=== PATIENT | female | born 1945 | race Caucasian/White ===

== ENCOUNTER 2023-03-11 09:34 | Outpatient (CLI) | payer MEDICARE, SELFPAY | END 2023-03-11 09:35 | disposition home or self-care (01) | PROVIDERS: PCP Family Medicine; Visit Provider Internal Medicine Gastroenterology | DX: D50.9 Iron deficiency anemia, unspecified (principal); K92.2 Gastrointestinal hemorrhage, unspecified; K22.70 Barrett's esophagus without dysplasia; K44.9 Diaphragmatic hernia without obstruction or gangrene | CPT/HCPCS: 43239; 88305; J2250; J3010 ==

== ENCOUNTER 2025-08-06 14:59 | Emergency (ER) | payer MEDICARE, SELFPAY ==
--- OUTSIDE RECORDS SUMMARY | 2025-01-23 18:00 | XMS_ITS | Continuity of Care Document ---
Author Organization [facility] Address [address] [address] [place] [address] Phone Care Team Providers Care Law Office Manager Name Role Phone Eugene Morrow DO Unavailab le Allergies, Adverse Reactions, Alerts Substance Reaction Status Criticality ibuprofen Active No Information Medications Medication Instructions Dosage Effective Dates (start - stop) Status Comments Protonix 40 mg tablet,delayed release take 1 tablet by oral route 2 times every day 40 MG - Active Pepcid 20 mg tablet take 1 tablet by ora l route 2 times every day 20 MG - Active donepezil 10 mg tablet take 1 tablet by oral route every day 10 MG - Active Procedures Procedure Date Init Inpt E&M Moderate Ugi Endo; W/bx 1/mx Init Inpt Cons New/est Mod-hi 4 Ugi Endo; Dx W/wo Collec Specm 24 Ugi Endo w/ablation Ugi Endo; W/bx 1/mx Level Iv-surg Path Gross/micro 24 Ugi Endo w/ablation Ugi Endo w/ablation Offic/outpt E&m New Mod-hi New Level 4 Subsqt Hosp-da E&m Stable 15 M 20 Init Hosp-da E&m Mod Severity 0 Ugi Endo; Dx W/wo Collec Specm 20 Advance Directives Directive Yes / No Effective Date File Name No Information Encounters Encounter Description Practice Location Reason(s) For Visit Diagnoses Date Provider Providers Copied on Encounter [facility], [address] [address], [place], [id number], [place] tel:[phone] [facility] No Information 5 Cristhian Segura. [address]001 [facility], [address], [id number], [place]. tel:[phone] Init Inpt E&M Moderate [facility], [address] [address], [place], [address], [place] tel:[phone] [facility] No Information 5 Cristhian Segura. [address] [place] [address], [id number], [place]. tel:[phone] Referring Provider: Bari Lyman, [address], [place], [address]. tel:[phone] Init Inpt Cons New/est Mod-hi [facility], [address] [address], [place], [place], [address], [place] tel:[phone] [facility] No Information 4 Lazaro German. [address], [id number], [place]. tel:[phone] Referring Provider: Bari Lyman, [address], [place], [address]. tel:[phone] [facility], [address] [address], [facility] [place], [address], [place] tel:[phone] [facility] Hankins's esophagus with low grade dysplasia 4 Fatou Green. [address], [id number], [place]. tel:[phone] [facility], [address] [address], [place], [id number], [place] tel:[phone] [facility] No Information 4 Fatou Green. [address] [facility], [facility] [address], [place], [address], [place]. tel:[phone] Referring Provider: Peter Oglesby, 3001 [facility] 500, [place], [address] . tel:[phone] [facility], [address] [address], [place], [address], [place] tel:[phone] [facility] Hankins's esophagus with low grade dysplasia 4 Fatou Green. [address] [facility], [address], [id number], [place]. tel:[phone] [facility], [address] [address], [place], [address], [place] tel:[phone] [facility] GI Symptoms or Concerns (chief complaint) Hankins's esophagus with high grade dysplasiaBarre tt's esophagus with low grade dysplasiaDiaph ragmatic hernia without obstruction or gangrene 4 Fatou Green. [address] [facility], [facility] [address], [place], [address], [place]. tel:[phone] Referring Provider: Referral Self, USE FOR SELF REFERRALS. [facility], [address] [address], [place], [address], [place] tel:[phone] [facility] Hankins's esophagus with high grade dysplasia 4 Faotu Green. [address] [facility], [facility] [address], [place], [address], [place]. tel:[phone] [facility], [address] [address], [place], [address], [place] tel:[phone] [facility] No Information 4 Fatou Green. [address] [facility], [address], [id number], [place]. tel:[phone] Referring Provider: Peter Oglesby, [address] [facility] [address], [place], [address] . tel:[phone] [facility], [address] [address], [place], [address], [place] tel:[phone] [facility] Hankins's esophagus with high grade dysplasia 3 Fatou Green. [address] [facility], [facility] 500, [place], [place], [address], [place]. tel:[phone] [facility], [address] [address], [place], [address], [place] tel:[phone] [facility] No Information 3 Fatou Green. [address] [facility], [facility] 500, [place], [place], [address], [place]. tel:[phone] Referring Provider: Peter Oglesby, [address] [facility] 500, [place], [address] . tel:[phone] Offic/outpt E&m New Mod-hi [facility], [address] [address], [place], [id number], [place] tel:[phone] [facility] GI Symptoms or Concerns (chief complaint) Hankins's esophagus with high grade dysplasia Jun-0 3 Fatou Green. [address] [place] [address], [facility] 500, [place], [place], [address], [place]. tel:[phone] Referring Provider: Kai Egan, [facility] [address] , [place], [address]. tel:[phone] [facility], [address] [address], [place], [id number], [place] tel:[phone] [facility] No Information 0 3 Jose L Doyle. [address] [facility], [facility] 500, [place], [place], [address], [place]. tel:[phone] Subsqt Hosp-da E&m Stable 15 M [facility], [address] [address], [place], [address], [place] tel:[phone] [facility] No Information 0 Viji Cervantes. [address] [facility], [facility] 500, [place], [place], [address], [place]. tel:[phone] Init Hosp-da E&m Mod Severity [facility], [address] [address], [facility] [place], [address], [place] tel:[phone] [facility] No Information 0 Yeison Amador. [address] [facility], [facility] 500, [place], [place], [address], [place]. tel:[phone] Family History Family Member Type Diagnosis Age At Onset No Information Immunizations Vaccine Date Status Comments tetanus toxoid, reduced diphtheria toxoid, and acellular pertussis vaccine, adsorbed administered Note: [facility] bi-direct ional interface ; Source: Other Registry Payers Payer name Insurance type Covered libertarian ID Authorsaqiba jose(s) [employer] Medicare [place] [id number] Social History Type Description Quantity Date Captured Comments Sex Female Smoking Status No Information Chief Complaint And Reason For Visit No Information Reason For Referral Reason For Referral No Information Plan Of Treatment Date Type Action Status Referral Ordered: [place] [address] Appointment date/timeframe: 08/02/2023 ordered History Of Present Illness Encounter Date Complaint History Of Prese nt Illness GI Symptoms or Concerns GI Symptoms or Concerns Jazmin saunders is a very nice 77-year-old female who we were asked to see in consultation by Dr. 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 The patient is actually known to us from previous GI bleeding. She has had at least 2 episodes of bleeding from esophageal ulceration in a long Hankins's segment. These required emergency endoscopy transfusion cautery and hospitalization.Since then, the patient has been followed for Hankins's with high-grade dysplasia, endoscoped in [place] and then again by Dr. Kai Schulz [facility] in [place]. The patient has had high-grade dysplasia on 2 endoscopies and the second endoscopy showed multifocal dysplasia with both high-grade and low-grade.The patient actually feels quite well off any antisecretory medication. She has no heartburn, no regurgitation, no abdominal pain. No nausea or vomiting. Stable appetite and stable weight. She has no dysphagia or odynophagia. No heartburn or regurgitation is n Functional Status Date Functional Assessmen t No Information Instructions Date Instruction Additional Infor jhonny Hiatal Hernia Related to [place] tt's esophagus with high grade dysplasia Assessments Type Assessment Date No Information Patient Care Teams Name Effective Dates (start - stop) Status Members No Information
--- OUTSIDE RECORDS SUMMARY | 2025-01-23 18:00 | XMS_ITS | Continuity of Care Document ---
Author Organization [facility] Address [address] [address] [place] [address] Phone Care Team Providers Care Deck Molder Name Role Phone Eugene Morrow DO Unavailab [...] Diagnoses Date Provider Providers Copied on Encounter [facility], [address] [address], [place], [id number], [place] tel:[phone] [facility] No Information 5 Cristhian Segura. [address] [facility], [address], [id number], [place]. tel:[phone] Init Inpt E&M Moderate [facility], [address] [address], [place], [address], [place] tel:[phone] [facility] No Information 5 Cristhian Segura. [address] [place] [address], [id number], [place]. tel:[phone] Referring Provider: Bari Lyman, [address], [place], [address]. tel:[phone] Init Inpt Cons New/est Mod-hi [facility], [address] [address], [place], [place], [address], [place] tel:[phone] [facility] No Information 4 Lazaro German. [address], [id number], [place]. tel:[phone] Referring Provider: Bari Lyman, [address], [place], [address]. tel:[phone] [facility], [address] [address], [facility] [place], [address], [place] tel:[phone] [facility] Hankins's esophagus with low grade dysplasia 4 Fatou Green. [address], [id number], [place]. tel:[phone] [facility], [address] [address], [place], [address], [place] tel:[phone] [facility] No Information 4 Fatou Green. [address] [facility], [address], [place], [address], [place]. tel:[phone] Referring Provider: Peter Oglesby, 3001 [facility] 500, [place], [address] . tel:[phone] [facility], [address] [address], [place], [address], [place] tel:[phone] [facility] Hankins's esophagus with low grade dysplasia 4 Fatou Green. [address] [facility], [address], [address], [place]. tel:[phone] [facility], [address] [address], [place], [place], [address], [place] tel:[phone] [facility] GI Symptoms or Concerns (chief complaint) Hankins's esophagus with high grade dysplasiaBarre tt's esophagus with low grade dysplasiaDiaph ragmatic hernia without obstruction or gangrene 4 Fatou Green. [address] [facility], [address], [place], [address], [place]. tel:[phone] Referring Provider: Referral Self, USE FOR SELF REFERRALS. [facility], [address] [address], [place], [place], [address], [place] tel:[phone] [facility] Hankins's esophagus with high grade dysplasia 4 Fatou Green. [address] [facility], [address], [place], [address], [place]. tel:[phone] [facility], [address] [address], [place], [address], [place] tel:[phone] [facility] No Information 4 Fatou Green. [address] [facility], [address], [address], [place]. tel:[phone] Referring Provider: Peter Oglesby, [address] [facility] [address], [place], [address] . tel:[phone] [facility], [address] [address], [place], [address], [place] tel:[phone] [facility] Hankins's esophagus with high grade dysplasia 3 Fatou Green. [address] [facility], [address], [place], [place], [address], [place]. tel:[phone] [facility], [address] [address], [place], [id number], [place] tel:[phone] [facility] No Information 3 Fatou Green. [address] [facility], [address], [place], [place], [address], [place]. tel:[phone] Referring Provider: Peter Oglesby, [address] [facility] 500, [place], [address] . tel:[phone] Offic/outpt E&m New Mod-hi [facility], [address] [address], [place], [address], [place] tel:[phone] [facility] GI Symptoms or Concerns (chief complaint) Hankins's esophagus with high grade dysplasia Jun-0 3 Fatou Green. [address] [place] [address], [address], [place], [place], [address], [place]. tel:[phone] Referring Provider: Kai Egan, [facility] [address] , [place], [address]. tel:[phone] [facility], [address] [address], [place], [id number], [place] tel:[phone] [facility] No Information 0 3 Jose L Doyle. [address] [facility], [address], [place], [place], [address], [place]. tel:[phone] Subsqt Hosp-da E&m Stable 15 M [facility], [address] [address], [place], [address], [place] tel:[phone] [facility] No Information 0 Viji Cervantes. [address] [facility], [address], [place], [place], [address], [place]. tel:[phone] Init Hosp-da E&m Mod Severity [facility] [place] [facility], [address] [address], [place] [place], [address], [place] tel:[phone] [facility] No Information 0 Yeison Amador. [address] [facility], [address], [place], [place], [address], [place]. tel:[phone] Family History Family Member Type Diagnosis Age At Onset No Information Immunizations Vaccine Date Status Comments tetanus toxoid, reduced diphtheria toxoid, and acellular pertussis vaccine, adsorbed administered Note: [facility] bi-direct ional interface ; Source: Other Registry Payers Payer name Insurance type Covered constitution party ID Authorsaqiba jose(s) [employer] Medicare [place] [id number] Social History Type Description Quantity Date Captured Comments Sex Female Smoking Status No Information Chief Complaint And Reason For Visit No Information Reason For Referral Reason For Referral No Information Plan Of Treatment Date Type Action Status Referral Ordered: [place] [address] Appointment date/timeframe: 08/02/2023 ordered History Of Present [...] for Hankins's with high-grade dysplasia, endoscoped in [place] and then again by Dr. Kai Schulz [facility] in [place]. The patient has had high-grade dysplasia on [...] Additional Infor jhonny Hiatal Hernia Related to [place] tt's esophagus with high grade dysplasia Assessments Type Assessment Date No Information Patient Care Teams Name Effective Dates (start - stop) Status Members No Information
--- OUTSIDE RECORDS SUMMARY | 2025-01-23 18:00 | XMS_ITS | Continuity of Care Document ---
Author Organization [facility] Address [address] [address] [place] [address] Phone Care Team Providers Care Usps Letter Carrier Name Role Phone Eugene Morrow DO Unavailab [...] Diagnoses Date Provider Providers Copied on Encounter [facility], [address] [address], [place], [id number], [place] tel:[phone] [facility] No Information 5 Cristhian Segura. [address] [facility], [address], [id number], [place]. tel:[phone] Init Inpt E&M Moderate [facility], [address] [address], [place], [address], [place] tel:[phone] [facility] No Information 5 Cristhian Segura. [address] [place] [address], [id number], [place]. tel:[phone] Referring Provider: Bari Lyman, [address], [place], [address]. tel:[phone] Init Inpt Cons New/est Mod-hi [facility], [address] [address], [place], [place], [address], [place] tel:[phone] [facility] No Information 4 Lazaro German. [address], [id number], [place]. tel:[phone] Referring Provider: Bari Lyman, [address], [place], [address]. tel:[phone] [facility], [address] [address], [facility] [place], [address], [place] tel:[phone] [facility] Hankins's esophagus with low grade dysplasia 4 Fatou Green. [address], [address], [place]. tel:[phone] [facility], [address] [address], [place], [address], [place] tel:[phone] [facility] No Information 4 Fatou Green. [address] [facility], [facility] [place], [place], [address], [place]. tel:[phone] Referring Provider: Peter Oglesby, [address]001 [facility] 500, [place], [address] . tel:[phone] [facility], [address] [address], [place], [address], [place] tel:[phone] [facility] Hankins's esophagus with low grade dysplasia 4 Fatou Green. [address] [facility], [address], [address], [place]. tel:[phone] [facility], [address] [address], [place], [place], [address], [place] tel:[phone] [facility] GI Symptoms or Concerns (chief complaint) Hankins's esophagus with high grade dysplasiaBarre tt's esophagus with low grade dysplasiaDiaph ragmatic hernia without obstruction or gangrene 4 Fatou Green. [address] [facility], [facility] [address], [place], [address], [place]. tel:[phone] Referring Provider: Referral Self, USE FOR SELF REFERRALS. [facility], [address] [address], [place], [place], [address], [place] tel:[phone] [facility] Hankins's esophagus with high grade dysplasia 4 Fatou Green. [address] [facility], [facility] [address], [place], [address], [place]. tel:[phone] [facility], [address] [address], [place], [place], [address], [place] tel:[phone] [facility] No Information 4 Fatou Green. [address] [facility], [address], [address], [place]. tel:[phone] Referring Provider: Peter Oglesby, [address] [facility] [address], [place], [address] . tel:[phone] [facility], [address] [address], [place], [address], [place] tel:[phone] [facility] Hankins's esophagus with high grade dysplasia 3 Fatou Green. [address] [facility], [facility] 500, [place], [place], [address], [place]. tel:[phone] [facility], [address] [address], [place], [address], [place] tel:[phone] [facility] No Information 3 Fatou Green. [address] [facility], [facility] 500, [place], [place], [address], [place]. tel:[phone] Referring Provider: Peter Oglesby, [address] [facility] 500, [place], [address] . tel:[phone] Offic/outpt E&m New Mod-hi [facility], [address] [address], [place], [address], [place] tel:[phone] [facility] GI Symptoms or Concerns (chief complaint) Hankins's esophagus with high grade dysplasia Jun-0 3 Fatou Green. [address] [place] [address], [facility] 500, [place], [place], [address], [place]. tel:[phone] Referring Provider: Kai Egan, [facility] [address] , [place], [address]. tel:[phone] [facility], [address] [address], [place], [address], [place] tel:[phone] [facility] No Information 0 3 Jose L Doyle. [address] [facility], [facility] 500, [place], [place], [address], [place]. tel:[phone] Subsqt Hosp-da E&m Stable [address] [facility], [address] [address], [place], [place], [address], [place] tel:[phone] [facility] No Information 0 Viji Cervantes. [address] [facility], [facility] 500, [place], [place], [address], [place]. tel:[phone] Init Hosp-da E&m Mod Severity [facility], [address] [address], [facility] [place], [address], [place] tel:[phone] [facility] No Information 0 Yeison Amador. [address] [facility], [facility] 500, [place], [place], [address], [place]. tel:[phone] Family History Family Member Type Diagnosis Age At Onset No Information Immunizations Vaccine Date Status Comments tetanus toxoid, reduced diphtheria toxoid, and acellular pertussis vaccine, adsorbed administered Note: [facility] bi-direct ional interface ; Source: Other Registry Payers Payer name Insurance type Covered green party ID Authorsaqiba jose(s) [employer] Medicare [place] [id number] Social History Type Description Quantity Date Captured Comments Sex Female Smoking Status No Information Chief Complaint And Reason For Visit No Information Reason For Referral Reason For Referral No Information Plan Of Treatment Date Type Action Status Referral Ordered: [place] [address] Appointment date/timeframe: 08/02/2023 ordered History Of Present [...] for Hankins's with high-grade dysplasia, endoscoped in [place] and then again by Dr. Kai Schulz [facility] in [place]. The patient has had high-grade dysplasia on [...] Additional Infor jhonny Hiatal Hernia Related to [place] tt's esophagus with high grade dysplasia Assessments Type Assessment Date No Information Patient Care Teams Name Effective Dates (start - stop) Status Members No Information
--- OUTSIDE RECORDS SUMMARY | 2025-01-23 18:00 | XMS_ITS | Continuity of Care Document ---
Author Organization [facility] Address [address] [address] [place] [address] Phone Care Team Providers Care Odd Jobs Day Worker Name Role Phone Eugene Morrow DO Unavailab [...] Diagnoses Date Provider Providers Copied on Encounter [facility], [address] [address], [place], [id number], [place] tel:[phone] [facility] No Information 5 Cristhian Segura. [address] [facility], [address], [id number], [place]. tel:[phone] Init Inpt E&M Moderate [facility], [address] [address], [place], [id number], [place] tel:[phone] [facility] No Information 5 Cristhian Segura. [address] [place] [address], [id number], [place]. tel:[phone] Referring Provider: Bari Lyman, [address], [place], [address]. tel:[phone] Init Inpt Cons New/est Mod-hi [facility], [address] [address], [place], [place], [id number], [place] tel:[phone] [facility] No Information 4 Lazaro German. [address], [id number], [place]. tel:[phone] Referring Provider: Bari Lyman, [address], [place], [address]. tel:[phone] [facility], [address] [address], [facility] [place], [id number], [place] tel:[phone] [facility] Hankins's esophagus with low grade dysplasia 4 Fatou Green. [address], [id number], [place]. tel:[phone] [facility], [address] [address], [place], [id number], [place] tel:[phone] [facility] No Information 4 Fatou Green. [address] [facility], [facility] [address], [place], [id number], [place]. tel:[phone] Referring Provider: Peter Oglesby, [address] [facility] [address], [place], [address] . tel:[phone] [facility], [address] [address], [place], [id number], [place] tel:[phone] [facility] Hankins's esophagus with low grade dysplasia 4 Fatou Green. [address] [facility], [address], [id number], [place]. tel:[phone] [facility], [address] [address], [place], [id number], [place] tel:[phone] [facility], [facility] GI Symptoms or Concerns (chief complaint) Hankins's esophagus with high grade dysplasiaBarre tt's esophagus with low grade dysplasiaDiaph ragmatic hernia without obstruction or gangrene 4 Fatou Green. [address] [facility], [facility] [address], [place], [id number], [place]. tel:[phone] Referring Provider: Referral Self, USE FOR SELF REFERRALS. [facility], [address] [address], [place], [place], [id number], [place] tel:[phone] [facility] Hankins's esophagus with high grade dysplasia 4 Fatou Green. [address] [facility], [facility] [address], [place], [id number], [place]. tel:[phone] [facility], [address] [address], [place], [place], [id number], [place] tel:[phone] [facility] No Information 4 Fatou Green. [address] [facility], [address], [id number], [place]. tel:[phone] Referring Provider: Peter Oglesby, [address] [facility] [address], [place], [address] . tel:[phone] [facility], [address] [address], [place], [id number], [place] tel:[phone] [facility] Hankins's esophagus with high grade dysplasia 3 Fatou Green. [address] [facility], [facility] [address], [place], [place], [id number], [place]. tel:[phone] [facility], [address] [address], [place], [id number], [place] tel:[phone] [facility] No Information 3 Fatou Green. [address] [facility], [facility] [address], [place], [place], [id number], [place]. tel:[phone] Referring Provider: Peter Oglesby, [address] [facility] [address], [place], [address] . tel:[phone] Offic/outpt E&m New Mod-hi [facility], [address] [address], [place], [id number], [place] tel:[phone] [facility] GI Symptoms or Concerns (chief complaint) Hankins's esophagus with high grade dysplasia Jun-0 3 Fatou Green. [address] [place] [address], [facility] [address], [place], [place], [id number], [place]. tel:[phone] Referring Provider: Kai Egan, [facility] [address] , [place], [address]. tel:[phone] [facility], [address] [address], [place], [id number], [place] tel:[phone] [facility] No Information 0 3 Jose L Doyle. [address] [facility], [facility] [address], [place], [place], [id number], [place]. tel:[phone] [facility] Hosp-da E&m Stable 15 M [facility], [address] [address], [place], [id number], [place] tel:[phone] [facility] No Information 0 Viji Cervantes. [address] [facility], [facility] [address], [place], [place], [id number], [place]. tel:[phone] Init Hosp-da E&m Mod Severity [facility], [address] [address], [facility] [place], [id number], [place] tel:[phone] [facility] No Information 0 Yeison Amador. [address] [facility], [facility] [address], [place], [place], [id number], [place]. tel:[phone] Family History Family Member Type Diagnosis Age At Onset No Information Immunizations Vaccine Date Status Comments tetanus toxoid, reduced diphtheria toxoid, and acellular pertussis vaccine, adsorbed administered Note: [facility] bi-direct ional interface ; Source: Other Registry Payers Payer name Insurance type Covered green party ID Authorsaqiba jose(s) [employer] [place] [id number] Social History Type Description Quantity Date Captured Comments Sex Female Smoking Status No Information Chief Complaint And Reason For Visit No Information Reason For Referral Reason For Referral No Information Plan Of Treatment Date Type Action Status Referral Ordered: [place] [id number] Appointment date/timeframe: 08/02/2023 ordered History Of Present [...] for Hankins's with high-grade dysplasia, endoscoped in [place] and then [facility] [place]. The patient has had high-grade dysplasia on [...] Additional Infor jhonny Hiatal Hernia Related to [place] tt's esophagus with high grade dysplasia Assessments Type Assessment Date No Information Patient Care Teams Name Effective Dates (start - stop) Status Members No Information
--- OUTSIDE RECORDS SUMMARY | 2025-07-04 16:14 | XMS_ITS | Encounter Summary ---
Author Organization [facility] Address [address] [place] [address] Care Team Providers Care Sap Integration Architect Name Role Phone None Reported, Pcp Primary Care Provider Unavail able Reason for Visit * Reason Comments Food Bolus Encounter Details Date Type Department Care Team (Late st Contact Info) Description 07/04/2025 5:14 PM CDT - 07/04/2025 8:14 PM CDT Emergency [facility] [address] [place] [phone] Farheen Yañez APRN, C.N.P., D.N.P. Food In Esophagus Causing Other Injury Initial (Primary Dx) Discharge Disposition: Home or Self Care Social History Tobacco Use Types Packs/Day Years Used Date Smoking Tobacco: Former Cigarettes Smokeless Tobacco: Never Alcohol Use Standard Drinks/Week Comments Yes 3 (1 standard drink = 0.6 oz pur e alcohol) daily drinker Humiliation, Afraid, Rape, and Kick questionnair e Answer Date Recorded Within the last year, have y ou been afraid of your partner or ex-partner? No 07/05/2025 Within the last year, have y ou been humiliated or emotionally abused in other ways by your partner or ex-partner? No Within the last year, have y ou been kicked, hit, slapped, or otherwise physically hurt by your partner or ex-partner? No 07/05/2025 Within the last year, have y ou been raped or forced to have any kind of sexual activity by your partner or ex-partner? No 07/05/2025 Hunger Vital Sign Answer Date Recorded Within the past 12 months, y ou worried that your food would run out before you got the money to buy more. Never true 07/05/20 25 Within the past 12 months, t he food you bought just didn't last and you didn't have money to get more. Never true 07/05/2025 PRAPARE - Transportation Answer Date Re corded In the past 12 months, has l ack of transportation kept you from medical appointments or from getting medications? No 06/23 In the past 12 months, has l ack of transportation kept you from meetings, work, or from getting things needed for daily living? No 07/05/2025 [facility] Utilities Answer Date Recorded In the past 12 months has e electric, gas, oil, or water company threatened to shut off services in your home? No 07/05/2025 Housing Stability Answer Date Recorded What is your living situation today? I have a [facility] place to live 07/05/2025 Education Answer Date Recorded What is the highest level of school you have completed or the highest degree you have received? 12th grade 09/17/2019 Comments No Sex and Gender Information Value Date Recorded Sex Assigned at Not on file Legal Sex Female 11:56 AM CLIENT SERVICES VICE PRESIDENT Gender Identity Not on file Sexual Orientation Not on file documented as of this encounter Last Filed Vital Signs Vital Sign Reading Time Taken Comments Blood Pressure 148/60 07/04/2025 8:00 PM CDT Pulse 86 07/04/2025 8:00 PM CDT Temperature 36.4 C (97.5 F) 07/04/2025 5:05 PM CDT Respiratory Rate 18 07/04/2025 5:05 PM CDT Oxygen Saturation 93% 07/04/2025 8:00 PM CDT Inhaled Oxygen Concentration - - Weight 60.9 kg (134 lb 4.2 oz) 07/04/2025 5:02 P M CDT Height - - Body Mass Index 22.34 11/15/2022 8:30 PM CLIENT SERVICES VICE PRESIDENT documented in this encounter Discharge Instructions * Discharge Instructions* Farheen Yañez APRN, C.N.P., D.N.P. - 07/04/2025 7:42 PM CDT Report to the [facility] Emergency Department. You will be evaluated by the GI team there. Return to the emergency department with any worsening symptoms, or any other concerns. * Attachments The following attachments cannot be sent through Care Everywhere. * Swallowed Foreign Body Adult Ojwe-eg-Ufod (Albanian) documented in this encounter Medications at Time of Discharge donepeziL (ARICEPT) 10 mg tablet Take 10 mg by mouth at bedtime. 07/31/2021 esomeprazole (NexIUM) [address] capsule Take 1 capsule (40 mg total) by mouth 2 (two) times a day before morning and evening meals. Open capsule carefully. Sprinkle granules onto 1 tablespoon of applesauce (not hot). Swallow the mixture immediately without chewing or crushing the granules. Follow with a small glass of water. Do not store the mixture - use right away., 180 capsule 07/07/2025 5:05 PM CDT 07/07/2025 famotidine (Pepcid) 20 mg tablet Take 20 mg by mouth 2 (two) times a day. 03/06/2025 ferrous sulfate 324 mg (65 mg iron) DR tablet Take 324 mg by mouth daily. 09/25/2021 metoprolol succinate (Toprol XL) 50 mg 24 hr tablet Take 1 tablet (50 mg total) by mouth daily. Do not crush or chew. 30 tablet 07/07/2025 5:05 PM CDT 07/07/2025 vitamins A,C,P-xoyl-ycgtz r (PRESERVISION AREDS) 7,160 Units-113 mg-100 Units per tablet Take 1 tablet by mouth daily. pantoprazole (Protonix) 40 mg EC tablet Take 40 mg by mouth daily before morning meal. 10/22/2024 pantoprazole (Protonix) 40 mg EC tablet Take 1 tablet (40 mg total) by mouth 2 (two) times a day before morning and evening meals. 07/07/2025 esomeprazole (NexIUM) [address] capsule Take 1 capsule (20 mg total) by mouth 2 (two) times a day before morning and evening meals. Open capsule carefully. Sprinkle granules onto 1 tablespoon of applesauce (not hot). Swallow the mixture immediately without chewing or crushing the granules. Follow with a small glass of water. Do not store the mixture - use right away., 180 capsule 07/07/2025 famotidine (PEPCID) 20 mg tablet Take 1 tablet (20 mg total) by mouth 2 (two) times a day. 60 tablet 11/19/2022 methyl salicylate-menth ol 15-10 % cream Apply 1 application topically 3 (three) times a day as needed for muscle/joint pain. Apply to painful joints 0 09/25/2021 omeprazole (PriLOSEC) [address] capsule Take 1 capsule (40 mg total) by mouth 2 (two) times a day before morning and evening meals. Open capsule carefully. Sprinkle granules onto 1 tablespoon of applesauce (not hot). Swallow the mixture immediately without chewing or crushing the granules. Follow with a small glass of water. Do not store the mixture - use right away. 180 capsule 07/07/2025 documented as of this encounter ED Notes * Farheen Yañez APRN, C.N.P., D.N.P. - 07/04/2025 5:18 PM CDT SUBJECTIVE CHIEF COMPLAINT/REASON FOR VISIT Food Bolus HISTORY OF PRESENT ILLNESS This is an 79-year-old female, who presents to the emergency department accompanied by her daughterfor evaluation of a food bolus. At 1600, while patient was eating chicken, she had an episode of foreign body sensation and was not able to continue swallowing. This has happened once in the past, and she was able to treat it with home remedy of olive oil. REVIEW OF SYSTEMS All other systems reviewed and are negative. OBJECTIVE Initial Vitals [07/04/251704] Temperature 36.4 ??C Pulse Rate 80 Heart Rate Resp Rate 18 Blood Pressure 141/68 SpO2 97 % Pain Score 2 PHYSICAL EXAMINATION Constitutional: Nursing note and vitals reviewed. Pulmonary/Chest: Effort normal. Musculoskeletal: General: Normal range of motion. Cervical back: Normal range of motion. Neurological: Alert. ASSESSMENT/PLAN Patient is ambulatory, and awake, and alert. She is afebrile and nontoxic- appearing. She is in no acute respiratory distress. She is seemingly uncomfortable, she is at unable to control her secretions. Patient was administered some oral coke, and was ambulating in facility several times. Subsequently, she was administered 2 doses of IV glucagon. All these attempts were unsuccessful. [facility] was contacted, and requested transferred ED to ED for GI evaluation. Dr. Herrera is the accepting physician. Patient and daughter were informed of the plan. And they are in agreement with the plan of care. There were advised to report to the [place] [facility]. Final Diagnoses: as of 07/04/251954 Food In Esophagus Causing Other Injury Initial Farheen Yañez APRN, C.N.P., D.N.P. 07/04/251954 * David Flaherty R.N. - 07/04/2025 5:06 PM CDT Patient presents to the ED with a food bolus of chicken since approximately 1600 today. Patient is unable to swallow any liquids and has excessive salivation. No respiratory distress noted. David Flaherty R.N. 07/04/251706 documented in this encounter Plan of Treatment Not on file documented as of this encounter Visit Diagnoses Diagnosis Food In Esophagus Causing Other Injury Initial- Primary documented in this encounter Administered Medications Inactive Administered Medications - up to 3 most recent administrations Medication Order MAR Action Action Date Dose Rate Site glucagon injection 1 mg (GlucaGen) 1 mg, intravenous, Once, On 07/04/25 at 1719, For 1 dose Given 07/04/2025 5:25 PM CDT 1 mg glucagon injection 1 mg (GlucaGen) 1 mg, intravenous, Once, On 07/04/25 at 1744, For 1 dose Given 07/04/2025 6:29 PM CDT 1 mg sodium chloride 0.9 % injection 2-10 mL 2-10 mL, intravenous, As needed, line care, Starting on 07/04/25 at 1718 documented in this encounter Active and Recently Administered Medications Times are shown in CDT. Scheduled Medication Order 07/02/2025 07/03/2025 07/04/2025 glucagon injection 1 mg (GlucaGen) (COMPLETED) 1 mg, intravenous, Once, On 07/04/25 at 1719, For 1 dose 1725 (Given - Provid er: David Flaherty R.N.) glucagon injection 1 mg (GlucaGen) (COMPLETED) 1 mg, intravenous, Once, On 07/04/25 at 1744, For 1 dose 1829 (Given - Provid er: David Flaherty R.N.) PRN Medication Order 07/02/2025 07/03/2025 07/04/2025 sodium chloride 0.9 % injection 2-10 mL(Linked Group 1) 2-10 mL, intravenous, As needed, line care, Starting on 07/04/25 at 1718 Linked Groups Order Group 1: Place peripheral IV: No upper extremity site restrictions (COMPLETED) Upper extremity site restriction: No upper extremity site restrictions, Quantity of PIVs requested: One, STAT, Once, On 07/04/25 at 1719, For 1 occurrence And sodium chloride 0.9 % injection 2-10 mLJump to med 2-10 mL, intravenous, As needed, line care, Starting on 07/04/25 at 1718 documented in this encounter Care Teams Sap Integration Architect Relationship Specialty Start Date End Date None Reported, Pcp PCP - General Family Medicine 03/12/25 documented as of this encounter
--- OUTSIDE RECORDS SUMMARY | 2025-07-04 20:22 | XMS_ITS | Encounter Summary ---
Author Organization [facility] Address [address] [place] [address] Care Team Providers Care Tree Surgeon Helper Name Role Phone None Reported, Pcp Primary Care Provider Unavail able Reason for Visit * Reason Comments Food Bolus * Auth/Cert (Routine) Specialty Diagnoses / Procedures Referred By Jim levine Referred To Contact Diagnoses Respiratory Failure (HCC) Respiratory Failure With Hypoxia (HCC) Acute Respiratory Failure (HCC) Food In Esophagus Causing Other Injury Initial Food bolus Procedures ED Referral ID Status Reason Start Date Expiration Date Visits Re quested Visits Authorized [id number] 1 1 Encounter Details Date Type Department Care Team (Late st Contact Info) Description 07/04/2025 9:22 PM CDT - 07/07/2025 5:15 PM CDT Hospital Encounter [facility], [facility], [facility], Sixth Floor [address] [place] [address] Vance Lopez M.D., M.H.A. [address] [place] [phone] Jefferson Carrion M.D. [address] [phone] Wali Diego M.B.BOsmanS. [address] [phone] Osbaldo Canchola M.D. [address] [place] [phone] Respiratory Failure (HCC) (Primary Dx); Respiratory Failure With Hypoxia (HCC); Food In Esophagus Causing Other Injury Initial; Dysphagia [R13.10]; Supraventricular Tachycardia, Unspecified (HCC); Stricture Esophagus; Hankins's Esophagus; Decline Functional Status Discharge Disposition: Home or Self Care Social [...] things needed for daily living? No 07/05/2025 [facility] Utilities Answer Date Recorded In the past 12 months has th e electric, gas, oil, or water company threatened to shut off services in your home? No 07/05/2025 Housing Stability Answer Date Recorded What is your living situation today? I have a [facility] place to live 07/06/2025 Education Answer Date Recorded What is the highest level of school you have completed or the highest degree you have received? 12th grade 09/17/2019 Comments No Sex and Gender Information Value Date Recorded Sex Assigned at Not on file Legal Sex Female 11:56 AM WEB ANALYTICS DEVELOPER Gender Identity Not on file Sexual Orientation Not on file documented as of this encounter Last Filed Vital Signs Vital Sign Reading Time Taken Comments Blood Pressure 139/71 07/07/2025 4:15 PM CDT Pulse 66 07/07/2025 4:15 PM CDT Temperature 36.7 C (98.1 F) 07/07/2025 4:15 PM CDT Respiratory Rate 21 07/07/2025 4:15 PM CDT Oxygen Saturation 94% 07/07/2025 4:15 PM CDT Inhaled Oxygen Concentration - - Weight 58.9 kg (129 lb 13.6 oz) 07/06/2025 2:42 AM CDT Height 156 cm (5' 1.42) 07/05/2025 12: 00 AM CDT Body Mass Index 24.2 07/05/2025 12:00 AM CDT documented in this encounter Discharge Summaries * Mounika Briones M.D., M.S. - 07/07/2025 12:19 PM CDT DISCHARGE SUMMARY BRIEF OVERVIEW Hospital: [facility] Discharge Provider: Wali Diego M.B.B.SOsman Primary Team: [facility] Medicine 3 Primary Care Providers: None Reported, Pcp (General) No address on file Primary Care Provider Phone Number: None Primary Care Provider Fax Number: None Admission Date: 07/04/2025 Discharge Date: 07/07/2025 PRINCIPAL DIAGNOSIS Respiratory Failure (HCC) SECONDARY DIAGNOSES Principal Problem: Respiratory Failure (HCC) Active Problems: Acute Respiratory Failure (HCC) Delirium (not otherwise specified) Food In Esophagus Causing Other Injury Initial Stricture Esophagus Dementia In Other Diseases Classified Elsewhere, Severe, Without Behavioral Disturbance, Psychotic Disturbance, Mood Disturbance, And Anxiety (HCC) Resolved Problems: * No resolved hospital problems. * DISCHARGE DISPOSITION Home or Self Care [1] ACTIVE ISSUES REQUIRING FOLLOW UP Discharge Notes from your Provider Team You were discharged from the Critical Care Medicine (ICU)-3 Service. Please identify this service name if you call with questions after hospitalization. You were hospitalized for food impaction causing difficulties with breathing and low oxygen levels. Please seek emergency care if you experience chest pain, shortness of breath, abdominal pain, nausea/vomiting, bleeding. Please seek emergency care if you experience new or worsening severe headache, loss of consciousness, facial drooping, weakness, trouble walking, vision changes, speech troubles. Medication changes: - Please continue medications as indicated in medication reconciliation - Please START metoprolol succinate 50 mg once daily - Consider Nexium open capsule instead of pantoprazole to reduce burden of swallowing whole pills. Regardless of PPI choice, should take 40 mg twice daily. Follow-up: - Please attend follow up appointments as listed in after visit summary - Follow-up with your PCP within 1-2 weeks. Follow-up on 07/22/2025. 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 - Follow with with GI Esophageal Clinic for consideration of esophageal dilations. - We will arrange for Cardiology and Esophageal clinic follow up at [facility]. Scheduling will be reaching out to you to schedule If [facility] preferred for either or both consults, please work with PCP to schedule these appointments -Please watch out for symptomatic AVNRT including: Palpitations, heart racing, fluttering Lightheadedness/dizziness Chest discomfort/tightness Shortness of breath Sweating/anxiety Passing out or almost passing out If above symptoms persist, please go to the ED. If the symptoms are transient, please let your PCP and System Dispatcher know. For PCP: - If requested, please refer patient to [facility] Cardiology for AVNRT management/follow up andto GI Clinic (esophageal clinic) for consideration of dilations. - Received IV dextran inpatient for iron deficiency anemia, consider hemoglobin/iron study recheck and optimizing iron supplements. Eating precautions: - Supervision when eating - Strict Reflux Precautions: Sit upright and remain upright 60 minutes after oral intake - Alternate bites/sips - Take small bites/sips - Intermittently clear throat If you have any questions related to issues addressed during your hospitalization prior to your follow-up appointments, contact the [facility] Cash Processor at [phone] and ask to speak with the Critical Care Medicine (ICU)- 3 Service OUTPATIENT FOLLOW UP For appointment details refer to your Patient Appointment Guide. TEST RESULTS PENDING AT DISCHARGE Pending Labs None DETAILS OF HOSPITAL STAY REASON FOR ADMISSION Respiratory Failure (HCC) Respiratory Failure With Hypoxia (HCC) Acute Respiratory Failure (HCC) Food In Esophagus Causing Other Injury Initial HOSPITAL COURSE Jazmin Lyn is a 79 y.o. female admitted to the [facility] Medicine 3 for food impaction. Past medical history notable for History of GI bleed, Anthony's ulcers (2019), LA grade D esophagitis (01/2025) GERD Hankins's esophagus with high grade dysplasia Hiatal hernia Alzheimer's dementia Anemia Alcohol use disorder (last drink 2019) Hx of left hip fracture s/p left hip hemiarthroplasty (2019) Hx of subdural hematoma (2018) Background: Mrs. Lyn was brought into the [place] ED by her daughter due to concerns for food bolus. Perreport she had difficulty swallowing her dinner (chicken) around 1600 the evening of presentation. She has history of one prior episode of food impaction that resolved at home without any medical intervention. At the time of initial presentation she was not ill appearing, managing oral secretions, and satting well on room air. The food bolus persisted IV glucagon x2, so she and her family were advised to present to [facility] ED for further evaluation and management. [facility] ED course: On arrival to [facility] ED her oxygen saturations were in the mid 80s which improved with application of facemask oxygen. There was concern for aspiration while in route to the ED due to a significant change in her respiratory status. RT suctioned at bedside with significant improvement in saturations, copious amount of secretions were noted. Her oxygen needs did continue to increase from nasal cannulainitially to facemask followed by non-rebreather at 15 L and high-flow nasal cannula at 80% FiO2, 60 L. Glucagon was again trialed without success. GI was consulted who recommended endoscopy for definitive management. She was transferred to the ICU due to concern for high risk for respiratory decompensation. Medical ICU Course (07/05-07/07): Mrs. Lyn was saturating well on HFNC on arrival to the ICU. She had diffuse rhonchi on pulmonary auscultation with associated cough. She was intubated prior to bedside EGD for airway protectionwith her high risk for aspiration. Bronchoscopy showed diffuse thin white secretions but no gross food particles. EGD was performed at bedside with removal of impacted chicken. Stenosis was noted at the GE junction and more proximally in the esophagus, the latter of which was biopsied. 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 No definitive Zenker's diverticulum was identified. GI verbally recommended outpatient GI follow up (locally or at [facility]) for consideration of dilation procedures. Following EGD, sedation was weaned and shortly after she was alert and able to follow commands. Shewas extubated to nasal cannula without issue. Lung sounds were significantly improved following bronchoscopy and extubation. 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 Initiated on diet--minced and moist solids, thin liquids, 1:1 nursing supervision with feeds--per DENTAL SCHEDULER recommendations. On 07/05, she was stable to transfer to the floor but then unfortunately went into asymptomatic SVTwith rates in low 200s twice overnight. Both times resolved with adenosine. She was additionally supported with IV magnesium, additional fluid boluses, and started on metoprolol tartrate 12.5 mg BID.Bed request changed to PCU status with tele monitoring. On 07/06, she had another episode of rates in 170s that seemed to quickly resolve with carotid massage. Again, patient was comfortable and no symptoms reported at that time. Metoprolol tartrate was increased to 25 mg BID. 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 Since she was monitored on telemetry and was asymptomatic--based on her age and overall other comorbid conditions, they recommended continuing hermedical therapy with beta blockade at this time and defer ablation for now. She should follow up with PCP/outpatient Cardiology for uptitration of medical therapy. Ablation or other medical therapy can be considered if she becomes symptomatic. No Holter monitor needed at this point in time. Patient's daughter Cathie informed of and agreeable with plan. 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 Bedside nursing impression was that she was mobilizing well and at baseline. PT also evaluated patient and agreed with nursing assessment. Given resolution of her admission problems and reassuring cardiology assessment, she was deemed safe for discharge home from ICU. No further inpatient cares needed. CONSULTS ORDERED DURING THIS ADMISSION IP CONSULT TO CARE MANAGEMENT IP CONSULT TO DIETITIAN IP CONSULT TO CARDIOLOGY Procedures Performed : endoscopy Pertinent Diagnostic Results : Pathology: Squamous esophageal mucosa, no dysplasia CONDITION AT DISCHARGE good Discharge instructions were provided to the patient and caregiver(s). Total time spent in discharge services today: 40 minutes. * Mounika Briones M.D., M.S. - 07/05/2025 7:57 AM CDT CCM3 TRANSFER NOTE CONDITION AT TRANSFER Improved. PHYSICAL EXAM Please see physical exam in the progress note from today. SUMMARY OF CARE Jazmin Lyn is a 79 y.o. female admitted to the [facility] Medicine 3 for food impaction. Past medical history notable for History of GI bleed, Anthony's ulcers (2019), LA grade D esophagitis (01/2025) GERD Hankins's esophagus with high grade dysplasia Hiatal hernia Alzheimer's dementia Anemia Alcohol use disorder (last drink 2019) Hx of left hip fracture s/p left hip hemiarthroplasty (2019) Hx of subdural hematoma (2018) Background: Mrs. Lyn was brought into the [place] ED by her daughter due to concerns for food bolus. Perreport she had difficulty swallowing her dinner (chicken) around 1600 the evening of presentation. She has history of one prior episode of food impaction that resolved at home without any medical intervention. At the time of initial presentation she was not ill appearing, managing oral secretions, and satting well on room air. The food bolus persisted IV glucagon x2, so she and her family were advised to present to [facility] ED for further evaluation and management. [facility] ED course: On arrival to [facility] ED her oxygen saturations were in the mid 80s which improved with application of facemask oxygen. There was concern for aspiration while in route to the ED due to a significant change in her respiratory status. RT suctioned at bedside with significant improvement in saturations, copious amount of secretions were noted. Her oxygen needs did continue to increase from nasal cannulainitially to facemask followed by non-rebreather at 15 L and high-flow nasal cannula at 80% FiO2, 60 L. Glucagon was again trialed without success. GI was consulted who recommended endoscopy for definitive management. She was transferred to the ICU due to concern for high risk for respiratory decompensation. Medical ICU Course (07/05): Mrs. Lyn was saturating well on HFNC on arrival to the ICU. She had diffuse rhonchi on pulmonary auscultation with associated cough. She was intubated prior to bedside EGD for airway protectionwith her high risk for aspiration. Bronchoscopy showed diffuse thin white secretions but no gross food particles. EGD was performed at bedside with removal of impacted chicken. Stenosis was noted at the GE junction and more proximally in the esophagus, the latter of which was biopsied. No definitive Zenker's diverticulum was identified. Following EGD sedation was weaned and shortly after she was alert and able to follow commands. She was extubated to nasal cannula without issue. Lung sounds were significantly improved following bronchoscopy and extubation. By the morning of 07/05, she was saturating well on 4 L NC and ready for floor transfer. RECOMMENDATIONS F/up DENTAL SCHEDULER evaluations w/ FL esophagram F/up biopsy pathology results No abx currently--monitor symptoms to see if she progresses from aspiration pneumonitis to pneumonia Lives w/ daughter who plans to take her back--- ensure this is a safe plan w/ PT/OT and CM as needed Iron deficiency without anemia--- consider IV dextran if concerns for symptomatic iron deficiency, otherwise consider transition to ferrous gluconate and supplementing iron outpatient Please see today's progress note for comprehensive problem list and associated plan. Mounika Briones M.D., M.S. documented in this encounter Discharge Instructions * Discharge Instructions* Mounika Briones M.D., M.S. - 07/07/2025 8:51 AM CDT Discharge Notes from your Provider Team You were discharged from the Critical Care Medicine (ICU)-3 Service. Please identify this service name if you call with questions after hospitalization. You were hospitalized for food impaction causing difficulties with breathing and low oxygen levels. Please seek emergency care if you experience chest pain, shortness of breath, abdominal pain, nausea/vomiting, bleeding. Please seek emergency care if you experience new or worsening severe headache, loss of consciousness, facial drooping, weakness, trouble walking, vision changes, speech troubles. Medication changes: - Please continue medications as indicated in medication reconciliation - Please START metoprolol succinate 50 mg once daily - Consider Nexium open capsule instead of pantoprazole to reduce burden of swallowing whole pills. Regardless of PPI choice, should take 40 mg twice daily. Follow-up: - Please attend follow up appointments as listed in after visit summary - Follow-up with your PCP within 1-2 weeks. Follow-up on 07/22/2025. 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 - Follow with with GI Esophageal Clinic for consideration of esophageal dilations. - We will arrange for Cardiology and Esophageal clinic follow up at [facility]. Scheduling will be reaching out to you to schedule If [facility] preferred for either or both consults, please work with PCP to schedule these appointments -Please watch out for symptomatic AVNRT including: Palpitations, heart racing, fluttering Lightheadedness/dizziness Chest discomfort/tightness Shortness of breath Sweating/anxiety Passing out or almost passing out If above symptoms persist, please go to the ED. If the symptoms are transient, please let your PCP and System Dispatcher know. For PCP: - If requested, please refer patient to [facility] Cardiology for AVNRT management/follow up andto GI Clinic (esophageal clinic) for consideration of dilations. - Received IV dextran inpatient for iron deficiency anemia, consider hemoglobin/iron study recheck and optimizing iron supplements. Eating precautions: - Supervision when eating - Strict Reflux Precautions: Sit upright and remain upright 60 minutes after oral intake - Alternate bites/sips - Take small bites/sips - Intermittently clear throat If you have any questions related to issues addressed during your hospitalization prior to your follow-up appointments, contact the [facility] Cash [employer]or at [phone] and ask to speak with the Critical Care Medicine (ICU)- 3 Service ?? Vagal Maneuver Instructions for Episodes of Rapid Heart Rate (SVT / AVNRT) Sometimes your heart may start beating very fast suddenly (similar to your past SVT episodes). Certain physical actions, called vagal maneuvers, can help slow your heart rate by stimulating your vagus nerve. If you ever feel faint, chest pain, or short of breath, stop immediately and call 911. ? Vagal Maneuvers You Can Try at Home (if cleared by your clinician) 1. Modified Valsalva (most effective home method) Take a deep breath, then bear down as if having a bowel movement for 15-20 seconds, - or blow forcefully into a syringe or straw (as if trying to move the plunger or make a bubble). Quickly lie back and raise your legs to about a 45?? angle for another 15-20 seconds. Relax and breathe normally. Repeat once if your heart rate does not slow after a minute or two. 2. Coughing Maneuver Take a deep breath and cough forcefully several times in a row. This increases pressure in your chest and can trigger the vagus nerve. 3. Ice-Water / ???Diving Reflex?? Technique Hold your breath and immerse your face in a bowl of ice water for 5-10 seconds, or press a cold, wet towel or ice pack firmly against your face. This sudden cold exposure activates the vagus nerve. ?? Vagal Maneuvers Only Done by a Clinician Carotid Sinus Massage This involves gentle pressure over one side of your neck where your carotid artery is. Do NOT attempt this yourself. It can cause dizziness, low blood pressure, or stroke if done incorrectly. Your clinician may perform it under monitoring in the clinic or hospital if needed. ?? When to Seek Help Call 911 or go to the nearest emergency department if: Your heart rate does not slow after a few minutes You feel dizzy, faint, chest pain, or shortness of breath The episode lasts more than 20 minutes ?? Prevention & Follow-Up Stay well hydrated and avoid excessive caffeine or stimulants. Track when your episodes occur and what triggers them. Bring this information to your next cardiology or primary care visit. Patient Education Summary: These techniques are safe when used correctly and can often stop SVT episodes. Always perform them while sitting or lying down, and seek medical care if symptoms persist. * Attachments The following attachments cannot be sent through Care Everywhere. * Level 5 - Minced and Moist Foods for Adults * Supraventricular Tachycardia (SVT) * Esomeprazole (By mouth) (Libyan) * Metoprolol (By mouth) (Libyan) documented in this encounter Medications at Time [...] tablet 07/07/2025 5:05 PM CDT 07/07/2025 vitamins A,C,X-mqsd-gsorg r (PRESERVISION AREDS) 7,160 Units-113 mg-100 Units per tablet Take 1 tablet by mouth daily. documented as of this encounter Progress Notes * Claire Anderson M.S.Eileen., L.I.C.S.W. - 07/07/2025 1:56 PM CDT SUBJECTIVE plywood factory worker received request from nursing to contact patient's son, Spencer Lyn, via phone to address questions regarding hospital insurance coverage. plywood factory worker contacted and spoke with Spencer. For specific hospital coverage information, licensed social worker recommended that Spencer contact patient's [facility] insurance customer service and/or the [facility] Business Office, contact information was provided. Spencer denied additional questions or concerns at this time. OBJECTIVE Per medical record, patient was listed as inpatient status starting on 07/04/25 [id number]. Patient is anticipated to discharge on 07/07/25. Inpatient length of stay: 3 d. Anticipated Needs Anticipated Needs Functional Status: Bathing, Dressing, Meal preparation, Medication set- up/administration, Housekeeping, Shopping, Managing finances Assistive Devices: None Anticipated Modifications to the Patient's Home: None Transportation Needs: Support from family Does the patient need discharge transport arranged?: No Anticipated Discharge Destination: Home or Self Care Discussed with patient's son other community resources for dismissal. Provided the following resources: [facility] Customer Service Number: and [facility] Business Office: [phone]. Patient/family are understanding and accepting of the discharge plan as described below. ASSESSMENT / PLAN Assessment Those noted above appear to have insight into the patient's needs at this time and are planning appropriately for discharge needs. They report agreement with the below plan with no further questions at this time. No barriers identified at this time. Plan - Patient is anticipating discharge to home self-care when medically stable. - At hospital discharge, patient will be transported by family members. - Please contact social work if this plan is to change. Anuja Steen, Marlin. 07/07/2025 * Mounika Briones M.D., M.S. - 07/07/2025 10:08 AM CDT RST CCM 3 ADMISSION NOTE SUBJECTIVE CHIEF CONCERN: Acute hypoxic respiratory failure HISTORY OF PRESENT ILLNESS Jazmin Lyn is a 79 y.o. female who presented with acute hypoxic respiratory failure in the setting of acute food impaction. Medical comorbidities include: History of GI bleed, Anthony's ulcers (2019), LA grade D esophagitis (01/2025) GERD Hankins's esophagus with high grade dysplasia Hiatal hernia Alzheimer's dementia Anemia Alcohol use disorder (last drink 2019) Hx of left hip fracture s/p left hip hemiarthroplasty (2019) Hx of subdural hematoma (2018) Interval Events: -Continued doing well on room air - Another tachycardic episode overnight, rates in the 170s. Abated without medication administration, carotid massage may have helped. - Unable to capture on ECG, PRN ECGs ordered so RN can release one if it happens again REVIEW OF SYSTEMS Pertinent items are noted in HPI; all other review of systems was negative. OBJECTIVE I have reviewed the current vital sign data as applicable to this admission. PHYSICAL EXAMINATION General: Thin appearing elderly female lying in bed, not in acute distress, pleasant and interactive HEENT: Normocephalic, atraumatic, dentition intact, dry mucous membranes Heart: Regular rate and rhythm, no murmurs noted Lungs: Breathing on room air, not in respiratory distress, clear breath sounds bilaterally anteriorly Abdomen: Soft, nondistended, nontender to palpation Extremities: No peripheral edema Neurological: Alert, following commands, oriented to self only, somewhat to place (guessed hospital, but not ICU or name of hospital) Skin: Warm, well perfused, no rashes noted, dry DIAGNOSTICS I have reviewed relevant laboratory, imaging, and other diagnostics as applicable to this admission. ASSESSMENT / PLAN Jazmin Lyn is a 79 y.o. 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 Mrs. Lyn presented from the [place] ED due to concerns for acute food impaction, shortly after arrival to the [facility] ED her oxygenation needs increased significantly leading to her being placed on high-flow nasal cannula. Due to concerns for aspiration and lack of improvement with IV glucagon she was transferred to the ICU for bedside EGD with the GI team. She was intubated prior to procedurefor airway protection with her high risk for aspiration. Bronchoscopy did show thin white secretions but no gross food particles. EGD was then performed at bedside with removal of impacted chicken. Stenosis was noted at the GE junction and more proximally in the esophagus, the more proximal of which was biopsied. With her history of Hankins's esophagus with high grade dysplasia she is at increased risk of malignant transformation. No definitive Zenker's diverticulum was identified. Following EGD sedation was weaned and shortly after she was alert and able to follow commands. She was extubated to nasal cannula without issue. Lung sounds were significantly improved following bronchoscopy and extubation. She is at risk for aspiration pneumonia so we will monitor her respiratory status closely, no current indication for antimicrobial therapy at this time. Esophagram w/ video swallow study showed two short segment strictures at the proximal and distal intrathoracic esophagus, for which the more distal stricture is mildly flow-limiting but without overt obstruction, moderate hiatal hernia, no aspiration. Initiated on diet--minced and moist solids, thin liquids, 1:1 nursing supervision with feeds--per DENTAL SCHEDULER recommendations. 07/06 + 07/07-- Appears quite well, on room air. Stable to transfer to floor or even consider discharge home with daughter. Will need PCU bed with telemetry monitoring given SVT episodes vs dischargefrom ICU. These episodes have been asymptomatic and readily aborted with adenosine. As these episodes are asymptomatic, not sure if SVT is in setting of acute illness or more chronic. Will consult HRS for recommendations prior to possible ICU discharge. Can consider outpatient Holter monitoring. PLAN BY SYSTEMS: NEURO: # Alzheimer's Dementia # History of prior traumatic subdural hemorrhage (2019) # High delirium risk -A&O to name and children only at baseline Sedation: none Pain management: Tylenol prn for fevers and pain. Continue home donepezil 10 mg nightly when cleared for diet Delirium precautions Ramelteon 8 mg QHS PRN PT/OT if indicated, mobility concerns--> none expressed by nursing thus far CARDIAC: # Asymptomatic SVT - Did require low dose NE during EGD likely 2/2 sedation - Went into SVT rates 200s at 5 pm on 07/05. Responded to 6 mg adenosine x1, given 2 g magnesium, metop tartrate 12.5 mg BID started, another 500 cc LR given. Additional SVT episode later that evening, also aborted with adenosine 6 mg. - Another tachycardic episode overnight 07/06, rates in the 170s. Abated without medication administration, carotid massage may have helped. - All episodes w/out symptoms MAP goal >65 Current vasopressors: none 500 cc LR for soft BP and hypovolemic on exam 07/06 Metoprolol tartrate 25 mg BID started for SVT Tele monitoring, needs transfer to tele bed for SVT monitoring Consider discharge on outpatient Holter HRS consult RESP: # Acute hypoxic respiratory failure, improving # Aspiration pneumonitis vs PNA - bronchoscopy 07/05 with thin white secretions throughout airway, no gross food particles - Latest CXR: Right lower lung airspace opacities, no pneumothorax or pleural effusion - Current O2 requirements: RA Oxygenation for saturation goal > 92%, wean supplemental oxygen as tolerated If respiratory symptoms do not improve or worsen in next 24-48 hours, treat for PNA --> currently have low concerns 48 hours out Encourage out of bed activities RENAL/: # Non-anion gap metabolic acidosis, very mild (AG 16) - eGFR 65 by CC Electrolyte goals: K>4, Mg>2. 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 Stenosis was noted at the GE junction and more proximally in the esophagus, latter of which was biopsied. With her history of Hankins's esophagus with high grade dysplasia she is at increased risk of malignant transformation. No definitive Zenker's diverticulum was identified. -Esophagram: Two short segment strictures at the proximal and distal intrathoracic esophagus, for which the more distal stricture is mildly flow- limiting but without overt obstruction, moderate hiatal hernia, no aspiration. -Pathology results benign--Squamous esophageal mucosa without diagnostic abnormality. No dysplasia. Nutrition, per DENTAL SCHEDULER evaluation: Minced and moist solids, thin liquids, 1:1 nursing supervision with feeds Continue home multivitamin Continue home pantoprazole 40 mg, increased to BID Continue home famotidine 10 mg BID Bowel regimen: Senakot scheduled, MiraLAX PRN ENDO: # Subclinical hypothyroidism, not on replacement -TSH 5.6, slightly elevated but appropriate for age, T4 1.3 WNL -Briefly hyperglycemia to 220s 2/2 glucagon administration Glucose checks per protocol ID: # High risk for aspiration pneumonia No current antibiotics Continue to monitor closely HEME: # Iron deficiency without anemia on admission # Acute hemoglobin drop 14-->10.9 -Iron studies: Hgb normal, MCV normocytic, ferritin normal (93), iron low, TIBC normal-low, transferrin saturation low Anticoagulation/DVT prophylaxis: Heparin TID IV dextran Continue to monitor CBC TUBES/LINES/DRAINS: Lines, Drains, and Wounds Peripheral IV Duration Peripheral IV 07/05/25 20 G Left;Posterior Hand 1d 16h DISPO - Code status: DNR - Surrogate decision maker: Spencer Rehman - ICU level of cares - Family updated overnight This case was discussed with [facility] [address] Cuevas. If any questions arise, please page the [facility] 3 [place] [phone]. Mounika Briones M.D., M.S., PGY-2 Internal Medicine 07/07/25 * Maranda Dukes CCC-DENTAL SCHEDULER - 07/07/2025 9:00 AM CDT Speech Language Pathology Note: Acute Care Patient was not directly seen today. Reviewed swallow study results, as well as safe swallow strategies/precautions with nursing staff. Recall that patient has dementia and benefits from consistent level cueing with each bite/drink to implement safe swallow strategies: - Strict Reflux Precautions: Sit upright and remain upright 60 minutes after PO intake - Alternate bites/sips - Take small bites/sips - Intermittently clear throat Thank you, Bailee Dukes MA, CCC-DENTAL SCHEDULER Contact: Pager #[phone] Speech-Language Pathologist Speech Pathology Service Pager: Dysphagia [phone] Speech Pathology Service Pager: Communication [phone] * Maximiliano William, Pharm.D., R.Ph. - 07/07/2025 8:11 AM CDT Pharmacist Progress Note Reason for admission: 79 y.o. 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 Resp: NC CV: HDS without support. SVT x2, responded to adenosine. Currently on metoprolol now increase to 25mg b.i.d.. Tolerating well and no further SBP. Likely to discharge on metoprolol 25 mg b.i.d. Neph: Appears at baseline Scr of 0.8 mg/dl ID: Observing off abx GI: s/p EGD with removal of impacted chicken; remains strict NPO until speech eval Endo: goal glucose of less than 180 and not hypoglycemic Weight Based Dosing: Admission Weight: 60.9 kg, last measured Weight: 58.9 kg (07/06/2025 2:42 AM) Height: 156 cm (07/05/2025 12:00 AM) , and BMI 24.20 kg/m?? . Medications reviewed Proph: SQH, PPI/H2B (home meds w/hx GERD and prior GIB) Maximiliano William Pharm.D., R.Ph. * Isela Cuevas D.O. - 07/07/2025 7:18 AM CDT CCM 3 PROGRESS NOTE This is a supervisory note for CCM 3. Please see Dr. Briones''s note for full details. We have discussed the history, physical exam, assessment and plan in detail. I have personally seen and examined the patient, reviewed all relevant labs, radiology studies and chart notes. I agree with the documentation of today's date. I have discussed the assessment and plan in-person with the multidisciplinary care team and supervising customer care consultant. SUBJECTIVE SUBJECTIVE Recurrent SVT overnight spontaneously aborted No complaints this morning States that she slept well OBJECTIVE Vitals: 07/07/25 0700 BP: 144/83 Pulse: 80 Resp: (!) 25 Temp: SpO2: 91% Physical Exam General: NAD, lying in bed CV: Regular rate and rhythm this morning Resp: Nonlabored respirations on room air Skin: No visible rashes. Neuro: No focal deficits, mentation at baseline in the setting of Alzheimer's dementia ASSESSMENT / PLAN ASSESSMENT & PLAN #Recurrent SVT # Acute hypoxic respiratory failure secondary to aspiration pneumonitis, improving # Acute meat impaction s/p EGD with bolus removal # Multiple esophageal strictures s/p biopsies, pathology pending # Barretts esophagus s/p multiple ablation # Hiatal hernia # Prior GI bleeding # GERD # Alzheimer's dementia Jazmin Lyn is a 79 y.o. 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 She received multiple doses of glucagon with little improvement in her motility. She was intubated and underwent bronchoscopy and endoscopy. The endoscopy revealed revealed 2 esophageal strictures which were biopsied in addition to a large bolus of shredded chicken which was removed. Bronchoscopy revealed thin white secretions without signs of overt foreign body aspiration. S he was extubated to nasal cannula. Overall clinical status continues to improve from an aspiration standpoint. No signs of pneumonia. Oxygen has been weaned to room air. Jazmin did develop recurrent SVT requiring adenosine 6 mg on 2 separate occasions. She has been given additional volume resuscitation, electrolyte replacements and started on low-dose beta-bekah. She had 1 additional run of SVT overnight which aborted spontaneously. We will engage with the heart rhythm team today to determine if there was any additional workupor management that is needed. Shared in his overall stable and ready for discharge pending recommendations from heart rhythm. Plan: - Heart rhythm consult - Increase metoprolol to 25 BID - Encourage out of bed activity - Diet per speech recommendations Code Status: DNR Disposition: Overall from a clinical perspective share in his ready for discharge, we could do thisfrom the intensive care unit depending on the recommendations from her heart rhythm team The patients care was discussed with supervising customer care consultant Dr. Diego who is in agreement with the plan. Isela Cuevas D.O. Pulmonary & Critical Care Medicine Fellow Pager: [phone] * Wali Diego M.B.B.S. - 07/07/2025 7:15 AM CDT Critical Care Note Patient Name: Jazmin Lyn : 1945 Age: 79 y.o. Gender: female Room/Bed: 564/564-P Date/Time of Admission: 07/04/2025 9:22 PM Hospital Day: 3 Date: 07/07/2025 Minutes spent in the care of this critically ill patient: 32 The total time was: was intermittent I have personally seen and examined the patient, reviewed all relevant labs, radiology studies, andmedical record notes. I have discussed the assessment and plan in person with the multidisciplinarycritical care team. I have reviewed the resident note associated with today???s encounter and agreewith this documentation with the following additions and exceptions: Patients condition has high probability for clinically significant or life- threatening deterioration and requires the highest level of physician preparedness to intervene urgently. ASSESSMENT AND PLAN: Narrative Summary: Mrs. Lyn continues to have intermittent episodes of SVT. It would be reasonable to engage with heart rhythm Service for further evaluation before she could be safely dismissed from ICU or discharged from the hospital. #1 Acute hypoxic respiratory failure secondary to aspiration, improving status post EGD (07/04/2025) and bronchoscopy (07/05/2025) #2 Supraventricular tachycardia, requiring adenosine x2 #3 Multiple esophageal strictures s/p biopsies, pathology pending #4 Hankins's esophagus s/p multiple ablation #5 Hiatal hernia #6 Prior GI bleeding #7 GERD #8 Alzheimer's dementia Plan for today HRS consult Aspiration precautions Wean oxygen as tolerated Reintroduce home medication, started on beta-blockers Liaise with family DNR Ready for floor transfer vs discharge home (PCP/CV follow up) Please see the critical care note from today's date for the systems based plan of care. Nutrition: Current Diet Adult Diet Dysphagia; Thin (TN0); Minced and Moist (MM5); Feeding assistance starting at 07/05 1930 Interventions I performed : [x] Life support management/intervention [x] Lab review [x] Radiograph review [x] Other data review [x] Discussion with I.C.U. team and/or consults Electronically signed by: Janel Davila, M.S., [facility] Soldering Machine Operator Helper customer care consultant Pulmonary and Critical Care Medicine Pager [phone] 07/07/25 7:17 AM CDT * Maranda Dukes, [facility]-DENTAL SCHEDULER - 07/06/2025 10:00 AM CDT Speech Language Pathology Dysphagia Treatment- Acute Care Session Type: Treatment Length of session: 15 minutes Time of Dysphagia Session: 1000 SUBJECTIVE Patient was alert, seated upright in recliner. General Family/Caregiver Present: No Arousal/Alertness: Delayed responses to stimuli Behavior: Alert, Confused Pain Pain Assessment Pain Assessment: 0-10 Numeric Pain Intensity Scale Pain Score: 0 - No pain OBJECTIVE Consistencies Assessed: Level 0 Thin Presentation: Straw, Cup Number of Trials Given: 12 Oral: Within Functional Limits (WFL) Pharyngeal: Within Functional Limits (WFL) Level 4 Puree Presentation: Self Fed Amount Given: 4 oz Oral: Within Functional Limits (WFL) Pharyngeal: Within Functional Limits (WFL) Patient/Caregiver Training and Education:role of DENTAL SCHEDULER, rational of assessment/evaulation, results ofassessment/evaluation, rationale for intervention provided, and strategies/precautions. [employer] verbalized understanding of the information provided. Patient unable to communicate understanding. At the end of today's session patient was left in bedside chair with [employer] present. Call light was left within reach. Patient's needs and questions were addressed to the best of my ability and within the scope of Speech Pathology during today's session. Assessment Ms. Lyn tolerated her breakfast tray well this morning per [employer]. During this session, targetedreview of safe swallow strategies with nursing staff. She consumed above stated trials with no overt s/sx of aspiration. She required a consistent verbal cue after each bite to take a drink to wash it down. Sitter was able to return demo adequate implementation of this strategy and will provide handoff to next [employer] with the cueing heirarchy needed for patient to implement safe swallow strategiesaccurately. Goals: Dysphagia Grain Trimmer Goal Dysphagia Group Home Goal: Patient will tolerate least restrictive diet without overt s/s suggestiveof aspiration Dysphagia Grain Trimmer Goal Progress Toward Goal: Progress toward goal completion: continue on target Dysphagia Short Term Goal 1 Dysphagia Short Term Goal 1: Patient will complete instrumental evaluation to evaluate pharyngeal swallow function. Dysphagia Short Term Goal 1 Progress Toward Goal: Goal met: complete goal Dysphagia Short Term Goal 2 Dysphagia Short Term Goal 2: Patient/family/staff will implement standard reflux precautions and safe swallow strategies/precautions across 2/2 sessions, following education Dysphagia Short Term Goal 2 Progress Toward Goal: Progress toward goal completion: continue on target Diagnosis: Dysphagia Consistent with a diagnosis of:: Mild to moderate oral stage dysphagia, Mild pharyngeal stage dysphagia, Signs of esophageal dysphagia observed Plan DYSPHAGIA RECOMMENDATIONS: Diet to be advanced at the discretion of patient's CCM team, if they choose to advance diet, recommend: Diet Recommendation-Solids: IDDSI Level 5 Minced & Moist Diet Recommendation-Liquids: IDDSI Level 0 Thin Medication Recommendation: Crushed (per physician/pharmacy approval) (or liquid form may be optimalgiven esophageal phase findings) Safety Precautions: Patient needs supervision and verbal reminders in order to implement the below stated precautions: - Strict Reflux Precautions: Sit upright and remain upright 60 minutes after PO intake - Alternate bites/sips - Take small bites/sips - Intermittently clear throat DENTAL SCHEDULER to follow Thank you, Bailee Dukes MA, CCC-DENTAL SCHEDULER Contact: Pager #[phone] Speech-Language Pathologist Speech Pathology Service Pager: Dysphagia [phone] Speech Pathology Service Pager: Communication [phone] * Wali Diego M.B.B.S. - 07/06/2025 6:51 AM CDT Critical Care Note Patient Name: Jazmin Lyn : 1945 Age: 79 y.o. Gender: female [facility] Date/Time of Admission: 07/04/2025 9:22 PM Hospital Day: 2 Date: 07/06/2025 Minutes spent in the care of this critically ill patient: 32 The total time was: was intermittent I have personally seen and examined the patient, reviewed all relevant labs, radiology studies, andmedical record notes. I have discussed the assessment and plan in person with the multidisciplinarycritical care team. I have reviewed the resident note associated with today???s encounter and agreewith this documentation with the following additions and exceptions: Patients condition has high probability for clinically significant or life- threatening deterioration and requires the highest level of physician preparedness to intervene urgently. ASSESSMENT AND PLAN: Narrative Summary: #1 Acute hypoxic respiratory failure secondary to aspiration, improving status post EGD (07/04/2025) and bronchoscopy (07/05/2025) #2 Supraventricular tachycardia, requiring adenosine x2 #3 Multiple esophageal strictures s/p biopsies, pathology pending #4 Hankins's esophagus s/p multiple ablation #5 Hiatal hernia #6 Prior GI bleeding #7 GERD #8 Alzheimer's dementia Plan for today Aspiration precautions Wean oxygen as tolerated Reintroduce home medication, started on beta-blockers Liaise with family DNR Ready for floor transfer Please see the critical care note from today's date for the systems based plan of care. Nutrition: Current Diet Adult Diet Dysphagia; Thin (TN0); Minced and Moist (MM5); Feeding assistance starting at 07/05 1930 Interventions I performed : [x] Life support management/intervention [x] Lab review [x] Radiograph review [x] Other data review [x] Discussion with I.C.U. team and/or consults Electronically signed by: Janel Davila, M.S., [facility] Soldering Machine Operator Helper customer care consultant Pulmonary and Critical Care Medicine Pager [phone] 07/06/25 6:52 AM CDT * Mounika Briones M.D., M.S. - 07/06/2025 6:33 AM CDT RST CCM 3 ADMISSION NOTE SUBJECTIVE CHIEF CONCERN: Acute hypoxic respiratory failure HISTORY OF PRESENT ILLNESS Jazmin Lyn is a 79 y.o. female who presented with acute hypoxic respiratory failure in the setting of acute food impaction. Medical comorbidities include: History of GI bleed, Anthony's ulcers (2019), LA grade D esophagitis (01/2025) GERD Hankins's esophagus with high grade dysplasia Hiatal hernia Alzheimer's dementia Anemia Alcohol use disorder (last drink 2019) Hx of left hip fracture s/p left hip hemiarthroplasty (2019) Hx of subdural hematoma (2018) Interval Events: -Weaned to room air -Twice--at 5 pm and overnight--went into asymptomatic SVT, aborted with adenosine both times REVIEW OF SYSTEMS Pertinent items are noted in HPI; all other review of systems was negative. OBJECTIVE I have reviewed the current vital sign data as applicable to this admission. PHYSICAL EXAMINATION General: Thin appearing elderly female lying in bed, not in acute distress, pleasant and interactive HEENT: Normocephalic, atraumatic, dentition intact, dry mucous membranes Heart: Regular rate and rhythm, no murmurs noted Lungs: Breathing on room air, not in respiratory distress, clear breath sounds bilaterally anteriorly Abdomen: Soft, nondistended, nontender to palpation Extremities: No peripheral edema Neurological: Alert, following commands, oriented to self only, somewhat to place (guessed hospital, but not ICU or name of hospital) Skin: Warm, well perfused, no rashes noted, dry DIAGNOSTICS I have reviewed relevant laboratory, imaging, and other diagnostics as applicable to this admission. ASSESSMENT / PLAN Jazmin Lyn is a 79 y.o. 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 Mrs. Lyn presented from the [place] ED due to concerns for acute food impaction, shortly after arrival to the [facility] ED her oxygenation needs increased significantly leading to her being placed on high-flow nasal cannula. Due to concerns for aspiration and lack of improvement with IV glucagon she was transferred to the ICU for bedside EGD with the GI team. She was intubated prior to procedurefor airway protection with her high risk for aspiration. Bronchoscopy did show thin white secretions but no gross food particles. EGD was then performed at bedside with removal of impacted chicken. Stenosis was noted at the GE junction and more proximally in the esophagus, the more proximal of which was biopsied. With her history of Hankins's esophagus with high grade dysplasia she is at increased risk of malignant transformation. No definitive Zenker's diverticulum was identified. Following EGD sedation was weaned and shortly after she was alert and able to follow commands. She was extubated to nasal cannula without issue. Lung sounds were significantly improved following bronchoscopy and extubation. She is at risk for aspiration pneumonia so we will monitor her respiratory status closely, no current indication for antimicrobial therapy at this time. Esophagram w/ video swallow study showed two short segment strictures at the proximal and distal intrathoracic esophagus, for which the more distal stricture is mildly flow-limiting but without overt obstruction, moderate hiatal hernia, no aspiration. Initiated on diet--minced and moist solids, thin liquids, 1:1 nursing supervision with feeds--per DENTAL SCHEDULER recommendations. 07/06-- Appears quite well, on room air. Stable to transfer to floor. Will need PCU bed with telemetry monitoring given SVT episodes. These episodes have been asymptomatic and readily aborted with adenosine. PLAN BY SYSTEMS: NEURO: # Alzheimer's Dementia # History of prior traumatic subdural hemorrhage (2018) # High delirium risk -A&O to name and children only at baseline Sedation: none Pain management: Tylenol prn for fevers and pain. Continue home donepezil 10 mg nightly when cleared for diet Delirium precautions Ramelteon 8 mg QHS PRN CARDIAC: # Asymptomatic SVT - Did require low dose NE during EGD likely 2/2 sedation - Went into SVT rates 200s at 5 pm on 07/05. Responded to 6 mg adenosine x1, given 2 g magnesium, metop tartrate 12.5 mg BID started, another 500 cc LR given. Additional SVT episode later that evening, also aborted with adenosine 6 mg. MAP goal >65 Current vasopressors: none 500 cc LR for soft BP and hypovolemic on exam 07/06 Metoprolol tartrate 12.5 mg BID started for SVT Tele monitoring, needs transfer to tele bed for SVT monitoring Consider discharge on outpatient Holter RESP: # Acute hypoxic respiratory failure, improving # Aspiration pneumonitis vs PNA - bronchoscopy 07/05 with thin white secretions throughout airway, no gross food particles - Latest CXR: Right lower lung airspace opacities, no pneumothorax or pleural effusion - Current O2 requirements: RA Oxygenation for saturation goal > 92%, wean supplemental oxygen as tolerated If respiratory symptoms do not improve or worsen in next 24-48 hours, treat for PNA --> currently have low concerns 24 hours out Encourage out of bed activities RENAL/: # Non-anion gap metabolic acidosis, very mild (AG 16) - eGFR 65 by CC Electrolyte goals: K>4, Mg>2. 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 Stenosis was noted at the GE junction and more proximally in the esophagus, latter of which was biopsied. With her history of Hankins's esophagus with high grade dysplasia she is at increased risk of malignant transformation. No definitive Zenker's diverticulum was identified. -Esophagram: Two short segment strictures at the proximal and distal intrathoracic esophagus, for which the more distal stricture is mildly flow- limiting but without overt obstruction, moderate hiatal hernia, no aspiration. Nutrition, per DENTAL SCHEDULER evaluation: Minced and moist solids, thin liquids, 1:1 nursing supervision with feeds Continue home multivitamin Continue home pantoprazole 40 mg daily Continue home famotidine 10 mg BID Bowel regimen: Senakot scheduled, MiraLAX PRN F/up pathology results ENDO: # Subclinical hypothyroidism, not on replacement -TSH 5.6, slightly elevated but appropriate for age, T4 1.3 WNL -Briefly hyperglycemia to 220s 2/2 glucagon administration Glucose checks per protocol ID: # High risk for aspiration pneumonia No current antibiotics Continue to monitor closely HEME: # Iron deficiency without anemia on admission # Acute hemoglobin drop 14-->10.9 -Iron studies: Hgb normal, MCV normocytic, ferritin normal (93), iron low, TIBC normal-low, transferrin saturation low Anticoagulation/DVT prophylaxis: Heparin TID IV dextran Continue to monitor CBC TUBES/LINES/DRAINS: Lines, Drains, and Wounds Peripheral IV Duration Peripheral IV 07/05/25 20 G Left;Posterior Hand 12h DISPO - Code status: DNR - Surrogate decision maker: Spencer Rehman - ICU level of cares - Family updated overnight This case was discussed with [facility] [address] Cuevas. If any questions arise, please page the [facility] 3 [place] [phone]. Mounika Briones M.D., M.S., PGY-2 Internal Medicine 07/06/25 * Isela Cuevas D.O. - 07/06/2025 6:22 AM CDT CCM 3 PROGRESS NOTE This is a supervisory note for CCM 3. Please see Dr. Briones''s note for full details. We have discussed the history, physical exam, assessment and plan in detail. I have personally seen and examined the patient, reviewed all relevant labs, radiology studies and chart notes. I agree with the documentation of today's date. I have discussed the assessment and plan in-person with the multidisciplinary care team and supervising customer care consultant. SUBJECTIVE SUBJECTIVE Recurrent SVT overnight aborted with adenosine 6 mg OBJECTIVE Vitals: 07/06/25 0615 BP: Pulse: 81 Resp: 16 Temp: SpO2: 91% Physical Exam General: NAD, sitting up in the chair, appears much improved CV: Regular rate and rhythm this morning Resp: Nonlabored respirations on room air Skin: No visible rashes. Neuro: No focal deficits, mentation at baseline ASSESSMENT / PLAN ASSESSMENT & PLAN\ #Recurrent SVT # Acute hypoxic respiratory failure secondary to aspiration pneumonitis, improving # Acute meat impaction s/p EGD with bolus removal # Multiple esophageal strictures s/p biopsies, pathology pending # Barretts esophagus s/p multiple ablation # Hiatal hernia # Prior GI bleeding # GERD # Alzheimer's dementia Jazmin Lyn is a 79 y.o. female with a past medical history significant for Hankins's esophagus with high-grade dysplasia s/p multiple ablations who presented with acute hypoxic respiratory failure in the setting of aspiration pneumonitis secondary to food impaction, requiring ICU-level care for management of food impaction. She received multiple doses of glucagon with little improvement in her motility. She was intubated and underwent bronchoscopy and endoscopy. The endoscopy revealed revealed 2 esophageal strictures which were biopsied. Bronchoscopy revealed thin white secretions without signs of overt foreign body aspiration. She was extubated to nasal cannula. Overall clinical status continues to improve from an aspiration standpoint. No signs of pneumonia. Oxygen has been weaned to room air. Jazmin did develop recurrent SVT requiring adenosine 6 mg on 2 separate occasions. She has been given additional volume resuscitation, electrolyte replacements and started on low-dose beta-bekah. She remains clinically stable for transfer out of the ICU. Given her recurrent SVT and initiation of a new beta bekah recommend PCU telemetry bed. Plan: - Continue beta-bekah 12.5 mg b.i.d. - Stable for floor transfer - Encourage out of bed activity - IV iron replacement - Diet per speech recommendations Code Status: DNR Disposition: Transfer to PCU The patients care was discussed with supervising customer care consultant Dr. Diego who is in agreement with the plan. Isela Cuevas D.O. Pulmonary & Critical Care Medicine Fellow Pager: [phone] * Wali Diego M.B.B.S. - 07/05/2025 7:31 AM CDT Critical Care Note Patient Name: Jazmin Lyn : 1945 Age: 79 y.o. Gender: female Room/Bed: [facility]- Date/Time of Admission: 07/04/2025 9:22 PM Hospital Day: 1 Date: 07/05/2025 Minutes spent in the care of this critically ill patient: 55 The total time was: was intermittent I have personally seen and examined the patient, reviewed all relevant labs, radiology studies, andmedical record notes. I have discussed the assessment and plan in person with the multidisciplinarycritical care team. I have reviewed the resident note associated with today???s encounter and agreewith this documentation with the following additions and exceptions: Patients condition has high probability for clinically significant or life- threatening deterioration and requires the highest level of physician preparedness to intervene urgently. ASSESSMENT AND PLAN: Narrative Summary: Mrs. Lyn was admitted for acute hypoxemic respiratory failure secondary to aspiration. Overnight she required intubation and bronchoscopy along with EGD for removal of aspirated contents. She has been successfully extubated while still remains on supplemental oxygen. She is hemodynamically stable to be transferred to the floor. Aspiration precautions to continue #1 Acute hypoxic respiratory failure secondary to aspiration, improving status post EGD (07/04/2025) and bronchoscopy (07/05/2025) #2 Multiple esophageal strictures s/p biopsies, pathology pending #3 Hankins's esophagus s/p multiple ablation #4 Hiatal hernia #5 Prior GI bleeding #6 GERD #7 Alzheimer's dementia #8 supraventricular tachycardia (1 episode on 07/05/2025, abated with 6 mg of adenosine) Plan for today Aspiration precautions Wean oxygen as tolerated Reintroduce home medication Formal swallow study Liaise with family DNR Systems based plan as per CCS note from today Ready for floor transfer Interventions I performed : [x] Life support management/intervention [x] Lab review [x] Radiograph review [x] Other data review [x] Discussion with I.C.U. team and/or consults Electronically signed by: Janel Davila, M.S., [facility] [employer]oldering Machine Operator Helper customer care consultant Pulmonary and Critical Care Medicine Pager [phone] 07/05/25 7:31 AM CDT Addendum 4:30 p.m. 07/05/2025 Patient had a run of supraventricular tachycardia (HR in 200s), carotid massage was attempted without any significant response Patient was given 6 mg of IV adenosine successful improvement in her heart rate and resolution of supraventricular tachycardia. She remained hemodynamically stable without any loss of consciousness or change in mental status. * Cj Padilla, D., R.Ph. - 07/05/2025 7:25 AM CDT Pharmacist Progress Note Reason for admission: 79 y.o. female admitted 07/04/2025 for aspiration pneumonitis secondary to food impaction PMH: Hankins's esophagus with high-grade dysplasia s/p multiple ablations, GERD, Alzheimer's dz Home meds: Verified ASSESSMENT and PLAN: Neuro: Minimize sedating meds; resume SECURITY THREAT ANALYST donepezil when taking po Resp: NC CV: HDS without support Neph: Appears at baseline Scr of 0.8 mg/dl ID: Observing off abx GI: s/p EGD with removal of impacted chicken; remains strict NPO until speech eval Endo: goal glucose of less than 180 and not hypoglycemic Weight Based Dosing: Admission Weight: 60.9 kg, last measured Weight: 58.5 kg (07/05/2025 12:15 AM) Height: 156 cm (07/05/2025 12:00 AM) , and BMI 24.04 kg/m?? . Medications reviewed Proph: SQH, PPI/H2B (home meds w/hx GERD and prior GIB) Cj Padilla Pharm.D., R.Ph. * Isela Cuevas D.O. - 07/05/2025 6:32 AM CDT CCM 3 PROGRESS NOTE This is a supervisory note for CCM 3. Please see Dr. Briones''s note for full details. We have discussed the history, physical exam, assessment and plan in detail. I have personally seen and examined the patient, reviewed all relevant labs, radiology studies and chart notes. I agree with the documentation of today's date. I have discussed the assessment and plan in-person with the multidisciplinary care team and supervising customer care consultant. SUBJECTIVE SUBJECTIVE No acute events over night Denies pain and shortness of breath this morning OBJECTIVE Vitals: 07/05/25 0615 BP: Pulse: 80 Resp: 23 Temp: SpO2: 97% Physical Exam General: NAD CV: Regular rate and rhythm. Resp: Nonlabored respirations on nasal cannula. GI: Soft, nondistended. Skin: Warm, dry. No visible rashes. Extremities: Warm, well perfused Neuro: No focal deficits. ASSESSMENT / PLAN ASSESSMENT & PLAN # Acute hypoxic respiratory failure secondary to aspiration pneumonitis, improving # Acute meat impaction s/p EGD with bolus removal # Multiple esophageal strictures s/p biopsies, pathology pending # Barretts esophagus s/p multiple ablation # Hiatal hernia # Prior GI bleeding # GERD # Alzheimer's dementia Jazmin Lyn is a 79 y.o. female with a past medical history significant for Hankins's esophagus with high-grade dysplasia s/p multiple ablations who presented with acute hypoxic respiratory failure in the setting of aspiration pneumonitis secondary to food impaction, requiring ICU-level care for management of food impaction. She received multiple doses of glucagon with little improvement in her motility. She was intubated and underwent bronchoscopy and endoscopy. The endoscopy revealed revealed 2 esophageal strictures which were biopsied. Bronchoscopy revealed thin white secretions without signs of overt foreign body aspiration. She was extubated to nasal cannula. Overall clinical status improving. She is now on 4 L nasal cannula. Stable for floor transfer. Ironstudies consistent with a iron-deficiency without anemia Plan: - Stable for floor transfer - Continue supplemental oxygen, wean as able - Encourage out of bed activity - Speech evaluation today - Esophagram - Strict NPO until speech is able to see - Hold PO, we will resume as appropriate following speech evaluation - Consider switching iron supplementation to a gluconate formulation for better absorption on discharge, her iron studies are consistent with iron-deficiency without anemia, difficult to assess whether she is experiencing symptoms consistent with iron-deficiency that would require IV supplementation, we will continue to monitor - Remove Joyce catheter Code Status: DNR Disposition: Transferred to the floor The patients care was discussed with supervising customer care consultant Dr. Diego who is in agreement with the plan. Isela Cuevas D.O. Pulmonary & Critical Care Medicine Fellow Pager: [phone] * Mounika Briones M.D., M.S. - 07/05/2025 6:28 AM CDT RST CCM 3 ADMISSION NOTE SUBJECTIVE CHIEF CONCERN: Acute hypoxic respiratory failure HISTORY OF PRESENT ILLNESS Jazmin Lyn is a 79 y.o. female who presented with acute hypoxic respiratory failure in the setting of acute food impaction. Medical comorbidities include: History of GI bleed, Anthony's ulcers (2019), LA grade D esophagitis (01/2025) GERD Hankins's esophagus with high grade dysplasia Hiatal hernia Alzheimer's dementia Anemia Alcohol use disorder (last drink 2019) Hx of left hip fracture s/p left hip hemiarthroplasty (2019) Hx of subdural hematoma (2018) Interval Events: -Intubated for EGD and bronchoscopy, extubated shortly thereafter procedure -Weaned to 4 L reservoir nasal cannula REVIEW OF SYSTEMS Pertinent items are noted in HPI; all other review of systems was negative. OBJECTIVE I have reviewed the current vital sign data as applicable to this admission. PHYSICAL EXAMINATION General: Thin appearing elderly female lying on her left side, not in acute distress, cough noted. HEENT: Normocephalic, atraumatic, dentition intact Heart: Regular rate and rhythm, no murmurs noted Lungs: Breathing on high-flow nasal cannula, not in respiratory distress, coarse breath sounds bilaterally anteriorly Abdomen: Soft, nondistended, nontender to palpation Extremities: No peripheral edema Neurological: Alert, following commands, oriented to self only Skin: Warm, well perfused, no rashes noted DIAGNOSTICS I have reviewed relevant laboratory, imaging, and other diagnostics as applicable to this admission. ASSESSMENT / PLAN Jazmin Lyn is a 79 y.o. 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 Mrs. Lyn presented from the [place] ED due to concerns for acute food impaction, shortly after arrival to the [facility] ED her oxygenation needs increased significantly leading to her being placed on high-flow nasal cannula. Due to concerns for aspiration and lack of improvement with IV glucagon she was transferred to the ICU for bedside EGD with the GI team. She was intubated prior to procedurefor airway protection with her high risk for aspiration. Bronchoscopy did show copious thick secretions but no gross food particles. EGD was then performed at bedside with removal of impacted chicken. Stenosis was noted at the GE junction and more proximally in the esophagus, the more proximal of which was biopsied. With her history of Hankins's esophagus with high grade dysplasia she is at increased risk of malignant transformation. No definitive Zenker's diverticulum was identified. Following EGD sedation was weaned and shortly after she was alert and able to follow commands. She was extubated to nasal cannula without issue. Lung sounds were significantly improved following bronchoscopy and extubation. We will keep her NPO tonight with speech evaluation in the morning with video swallow study, the contrast esophagram to better evaluate her swallow. She is at risk for aspiration pneumonia so we will monitor her respiratory status closely, no current indication for antimicrobial therapy at this time. PLAN BY SYSTEMS: NEURO: # Alzheimer's Dementia # History of prior traumatic subdural hemorrhage (2018) # High delirium risk Sedation: none Pain management: Tylenol prn for fevers and pain. Continue home donepezil 10 mg nightly when cleared for diet Delirium precautions CARDIAC: - Did require low dose NE during EGD likely 2/2 sedation Obtain baseline EKG MAP goal >65 Current vasopressors: none 500 cc LR for soft BP and hypovolemic on exam RESP: # Acute hypoxic respiratory failure, improving # Aspiration pneumonitis vs PNA - bronchoscopy 07/05 with thin white secretions throughout airway, no gross food particles - Latest CXR: Right lower lung airspace opacities, no pneumothorax or pleural effusion - Current O2 requirements: 4 L reservoir NC Oxygenation for saturation goal > 90%, wean supplemental oxygen as tolerated If respiratory symptoms do not improve or worsen in next 24-48 hours, treat for PNA RENAL/: # Non-anion gap metabolic acidosis, very mild (AG 16) - eGFR 65 by CC Electrolyte goals: K>4, Mg>2. 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 Stenosis was noted at the GE junction and more proximally in the esophagus, latter of which was biopsied. With her history of Hankins's esophagus with high grade dysplasia she is at increased risk of malignant transformation. No definitive Zenker's diverticulum was identified. Nutrition: NPO (pending swallow eval) Continue home multivitamin Continue home pantoprazole 40 mg daily (IV until cleared for diet) Continue home famotidine 10 mg BID (IV until cleared for diet) DENTAL SCHEDULER evaluation with video swallow study and double contrast esophagram Bowel regimen: held with NPO status F/up pathology results ENDO: # Subclinical hypothyroidism, not on replacement -TSH 5.6, slightly elevated but appropriate for age, T4 1.3 WNL Glucose checks per protocol ID: # High risk for aspiration pneumonia No current antibiotics Continue to monitor closely HEME: # Prior iron-deficiency anemia -Iron studies: Hgb normal, MCV normocytic, ferritin normal (93), iron low, TIBC normal-low, transferrin saturation low Anticoagulation/DVT prophylaxis: Heparin TID No current evidence of anemia, labs may reflect recent physiologic stress TUBES/LINES/DRAINS: Lines, Drains, and Wounds Peripheral IV Duration Peripheral IV 07/04/25 20 G Left Antecubital 6h Peripheral IV 07/04/25 20 G Right Antecubital 13h Drain Duration Indwelling Urinary Catheter Double Lumen (Joyce) 16 Fr. 5h DISPO - Code status: DNR - Surrogate decision maker: Spencer Rehman - ICU level of cares - Family updated This case was discussed with [facility] [address] Cuevas. If any questions arise, please page the [facility] 3 [place] [phone]. Mounika Briones M.D., M.S., PGY-2 Internal Medicine 07/05/25 * Peter Rice MDIV, [facility] - 07/05/2025 2:14 AM CDT [facility] Spiritual Care Progress Note Patient: Jazmin Lyn Age:79 y.o. [id number] Reason(s) for encounter: Spiritual Care contact to introduce spiritual care service and assess for potential spiritual care needs. Summary: I had the pleasure of meeting briefly with Jazmin Lyn, along with two family members.I informed Ms. Lyn and her family that Spiritual Care is available at all times, and can be reached through Ms. Lyn's bedside nurse. Spiritual Care interventions: Introduced the role as member of the interdisciplinary care team with the aim of establishing spiritual therapeutic rapport with patient and/or family Spiritual Care outcomes: Patient/family became familiar with the role of spiritual care provider and identified spiritual care needs. Patient/family was appreciative of spiritual care support. Spiritual Care Plan / Recommendations: Will remain available for spiritual care as needed or requested. Chaplains can be contacted by paging [phone] ([place]) or [phone] ([employer]). * Kriss Gonzalez R.R.TOsman, L.R.T. - 07/04/2025 11:00 PM CDT RT called to the room due to patient desaturating to low 80 s. Patient was on non-rebreather 10I, increased to 15 l. Started patient on HFNC 40 L 80%. Patient had copious amount secretion that she was unable to cough up. Patient NTS, got thick yellow secretion and a piece a small piece of chicken out. RT called to the room to increase oxygen patient maxed out on HFNC prior to being transported toMU. Report given to covering RT. Electronically signed by: Kriss Gonzalez R.R.T., L.R.T. 07/05/25 6:04 AM CDT documented in this encounter H&P Notes * Ya Taveras M.D. - 07/05/2025 1:00 AM CDT RST CCM 3 ADMISSION NOTE SUBJECTIVE CHIEF CONCERN: Acute hypoxic respiratory failure HISTORY OF PRESENT ILLNESS Jazmin Lyn is a 79 y.o. female who presented with acute hypoxic respiratory failure in the setting of acute food impaction. Medical comorbidities include: History of GI bleed, Anthony's ulcers (2019), LA grade D esophagitis (01/2025) GERD Hankins's esophagus with high grade dysplasia Hiatal hernia Alzheimer's dementia Anemia Alcohol use disorder (last drink 2019) Hx of left hip fracture s/p left hip hemiarthroplasty (2019) Hx of subdural hematoma (2019) Mrs. Lyn was brought into the [place] ED by her daughter due to concerns for food bolus. Perreport she had difficulty swallowing her dinner (chicken) around 1600 the evening of presentation. She has history of one prior episode of food impaction that resolved at home without any medical intervention. At the time of initial presentation she was not ill appearing, managing oral secretions, and satting well on room air. The food bolus persisted IV glucagon x2, so she and her family were advised to present to [facility] ED for further evaluation and management. On arrival to [facility] ED her oxygen saturations were in the mid 80s which improved with application of facemask oxygen. There was concern for aspiration while in route to the ED due to a significant change in her respiratory status. RT suctioned at bedside with significant improvement in saturations, copious amount of secretions were noted. Her oxygen needs did continue to increase from nasal cannulainitially to facemask followed by non-rebreather at 15 L and high-flow nasal cannula at 80% FiO2, 60 L. ED course was notable for: Vitals: 132/66, pulse 78, SpO2 84% on 3 L nasal cannula Laboratory evaluation: lactate 1.99, ISTAT potassium 3.9, Na 138, VBG with pH 7.9 and pCO2 of 47 while on HFNC, hemoglobin 13.9, WBC 5.7, plt 274, INR 1.1, Imaging: CXR with right lower lobe airspace opacities, no pneumothorax or large pleural effusion Interventions: glucagon 4 mg IV x1 Glucagon was unsuccessful so GI was consulted. They recommended endoscopy for definitive management. She was transferred to the ICU for further management. Further history was obtained at bedside via [facility]. She lives with her daughter at baseline who reports that she has been feeling well in the last several days. They deny any significant changes prior to arrival including cough, shortness of breath, or fever. She ambulates independently in the home, uses a walker for longer distances. She is oriented to herself at baseline and recognizes her children but is typically confused at baseline with poor short term memory. REVIEW OF SYSTEMS Pertinent items are noted in HPI; all other review of systems was negative. OBJECTIVE I have reviewed the current vital sign data as applicable to this admission. PHYSICAL EXAMINATION General: Thin appearing elderly female lying on her left side, not in acute distress, cough noted. HEENT: Normocephalic, atraumatic, dentition intact Heart: Regular rate and rhythm, no murmurs noted Lungs: Breathing on high-flow nasal cannula, not in respiratory distress, coarse breath sounds bilaterally anteriorly Abdomen: Soft, nondistended, nontender to palpation Extremities: No peripheral edema Neurological: Alert, following commands, oriented to self only Skin: Warm, well perfused, no rashes noted DIAGNOSTICS I have reviewed relevant laboratory, imaging, and other diagnostics as applicable to this admission. ASSESSMENT / PLAN Jazmin Lyn is a 79 y.o. 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 Mrs. Lyn presented from the [place] ED due to concerns for acute food impaction, shortly after arrival to the [facility] ED her oxygenation needs increased significantly leading to her being placed on high-flow nasal cannula. Due to concerns for aspiration and lack of improvement with IV glucagon she was transferred to the ICU for bedside EGD with the GI team. She was intubated prior to procedurefor airway protection with her high risk for aspiration. Bronchoscopy did show copious thick secretions but no gross food particles. EGD was then performed at bedside with removal of impacted chicken. Stenosis was noted at the GE junction and more proximally in the esophagus, the more proximal of which was biopsied. With her history of Hankins's esophagus with high grade dysplasia she is at increased risk of malignant transformation. No definitive Zenker's diverticulum was identified. Following EGD sedation was weaned and shortly after she was alert and able to follow commands. She was extubated to nasal cannula without issue. Lung sounds were significantly improved following bronchoscopy and extubation. We will keep her NPO tonight with speech evaluation in the morning with video swallow study, the contrast esophagram to better evaluate her swallow. She is at risk for aspiration pneumonia so we will monitor her respiratory status closely, no current indication for antimicrobial therapy at this time. PLAN BY SYSTEMS: NEURO: # Alzheimer's Dementia # History of prior traumatic subdural hemorrhage (2019) # High delirium risk - Sedation: none - Pain management: Tylenol prn for fevers and pain. - Continue home donepezil 10 mg nightly when cleared for diet - Delirium precautions CARDIAC: - Obtaining baseline EKG - MAP goal 65 - Current vasopressors: none - Did require low dose NE during EGD likely 2/2 sedation RESP: # Acute hypoxic respiratory failure, improving # Aspiration pneumonitis - bronchoscopy 07/05 with copious secretions, no gross - Oxygenation for saturation goal > 90%, wean supplemental oxygen as tolerated - Latest CXR: Right lower lung airspace opacities, no pneumothorax or pleural effusion RENAL/: # Non-anion gap metabolic acidosis - Electrolyte goals: K>4, Mg>2. - Urinary catheter in place for strict I&Os - Obtaining cystatin C with low muscle mass GI: # Acute esophageal food impaction s/p EGD with removal (07/05) # Concern for esophageal stricture # Hankins's esophagus w/ dysplasia s/p Halo ablation (last 03/2024) # GERD # Prior alcohol use disorder (last drink 2019) # History of GI bleed, Anthony's ulcers (2019), LA grade D esophagitis (01/2025) # Large Hiatal hernia - Nutrition: NPO - Continue home multivitamin - Continue home pantoprazole 40 mg daily (IV until cleared for diet) - Continue home famotidine 10 mg BID (IV until cleared for diet) - DENTAL SCHEDULER evaluation with video swallow study and double contrast esophagram - GI bleed consulted overnight for bedside EGD - Bowel regimen: held with NPO status ENDO: # Hypothyroidism, not on replacement - Glucose checks per protocol - Obtaining TSH ID: # High risk for aspiration pneumonia - No current antibiotics - Continue to monitor closely HEME: # Prior iron-deficiency anemia - Anticoagulation/DVT prophylaxis: Heparin TID - Obtaining iron studies TUBES/LINES/DRAINS: Peripheral IV x2 DISPO - Code status: DNR - Surrogate decision maker: Spencer Rehman - ICU level of cares - Family updated This case was discussed with CCM [address] Carrion. If any questions arise, [place] [phone]. Ya Taveras M.D., PGY-2 Internal Medicine 07/04/25 * Jefferson Carrion M.D. - 07/04/2025 11:03 PM CDT SUBJECTIVE CHIEF COMPLAINT/REASON FOR VISIT Food impaction, acute hypoxemic respiratory failure REFERRAL SOURCE [facility] Emergency Department HISTORY OF PRESENTING ILLNESS I have personally seen and examined the patient, reviewed all relevant labs, radiology studies, andchart notes and have discussed the assessment and plan in person with the interprofessional critical care team. I have reviewed the resident note associated with today???s encounter and agree with this documentation with the following additions and exceptions: Jazmin Lyn is a 79 y.o. year old female admitted to the [facility] MICU for management of a food impaction complicated by an acute aspiration event leading to acute hypoxemic respiratory failure. Pertinent past medical history includes Hankins's esophagus, Alzheimer's disease, GERD, and hypothyroidism in addition to prior traumatic subdural hemorrhage. The patient was eating chicken today when she developed a food impaction and was unable to swallow any liquids. She initially presented to the [facility] Emergency Department where she was unresponsive to a trial of glucagon x 2, prompting transfer to [facility] Emergency Department for emergent endoscopy. During transport t he patient developed worsening shortness of breath and oxygen requirements (currently 15 L/min), and chest radiograph demonstrated a right lower lobe infiltrate presumed due to aspiration. Repeat glucagon administration here was unsuccessful. The patient was transferred to the MICU service, where initial assessment found an interactive but uncomfortable elderly woman requiring high flow oxygen treatment. She was intubated after obtaining informed consent from her surrogate decision maker with fentanyl 25 micrograms, propofol 30 mg, and succinylcholine 60 mg on the first attempt (cords initially closed, then relaxed), with suctioning of extensive thick secretions throughout her airways but no evidence of food aspiration. EGD was performed with removal of a large amount of impacted chicken without evidence of esophageal perforation. OBJECTIVE PHYSICAL EXAMINATION Vital signs were reviewed. Patient is alert and interactive, in mild discomfort. HEENT: AT/NC, EOMI, mental status at baseline. NECK: Trachea midline, no lymphadenopathy, masses, or jugular venous distension. COR: R/ S1 and S2 no murmurs, gallops, or rubs. CHEST: Coarse breath sounds bilaterally. ABD: Normal bowel sounds, soft and non-distended. EXT: No cyanosis, clubbing, or edema. DIAGNOSTICS Pertinent Studies: Recent Labs 07/04/25230207/04/25230107/04/252300 NA 138 -- -- BICARB 23 -- -- HGB -- -- 13.9 HCT -- -- 43.9 WBC -- -- 5.7 PLT -- -- 274 INR -- -- 1.1 PT -- -- 11.7 LACTATE -- 1.99 -- Other pertinent findings include K of 3.9. Portable chest radiograph performed on July 04, 2025 demonstrates interval resolution of prior LLL infiltrates observed in 2024, with new patchy RLL opacities and stigmata of old granulomatousdisease. Prior upper endoscopy performed on November 18, 2022 demonstrated esophageal ulcers with long-segment Hankins's esophagus with a normal duodenum. CT abdomen / pelvis performed on January 22, 2025 demonstrated circumferential thickening of the distal esophagus with a moderate seized hiatal hernia with retained / refluxed fluid, in addition to patchyleft lower lobe infiltrates suspicious for aspiration. ASSESSMENT / PLAN #1 Acute meat impaction #2 Acute hypoxemic respiratory failure #3 Aspiration pneumonitis, r/o foreign body aspiration #4 Hankins's esophagus #5 Alzheimer's disease #6 Gastroesophageal reflux disease #7 Hypothyroidism #8 History of head trauma, prior subdural hemorrhage #9 Code status: Prior Jazmin Lyn is a 79 y.o. year old female with acute meat impaction complicated by aspiration and acute hypoxemic respiratory failure. We have cleared her extensive secretions and meat impaction, and will transition her to ASV with plans to wean to extubation when her sedation has cleared. She will require a formal swallowing evaluation to evaluate what appears to be findings of chronic esophageal motility based on her prior CT imaging. There is no current indication for antibioticsfor her aspiration at this time. Plan for today therefore includes the followin. Propofol and fentanyl off, day night cycling. 2. Extubate when ready, wean oxygen as tolerated. 3. NPO, formal swallowing evaluation with likely esophogram in am. Pantoprazole 40 mg daily. 4. Heparin for DVT prophylaxis. Clinical condition discussed with family members present during hospitalization (updated) Condition of patient: critically ill (please see problem list as well as assessment and plan) Critical care time 45 minutes. This is time spent at this critically ill patient's bedside activelyinvolved in patient care as well as the coordination of care and discussions with the patient's family. This does not include any procedural time which has been billed separately. Remaining issues per the systems-based plan outlined in the ICU notes from today. documented in this encounter Procedure Notes * Lucia Hobbs M.D., M.B.A. - 07/05/2025 12:24 AM CDTAssociated Order(s): Bronchoscopy (Adult) Post-Procedure Diagnose(s): Respiratory Failure (HCC) Bronchoscopy (Adult) Performed by: Lucia Hobbs M.D., M.B.A. Authorized by: Lucia Hobbs M.D., M.B.A. Care team members present 1. Jefferson Carrion M.D. 3. Brooklyn Du R.N. PROCEDURE DETAILS Route: endotracheal tube BAL (bronchoalveolar lavage): no Brushing: no Biopsy: no Removal foreign body: no Other procedures performed: no Procedure details A procedural pause was completed verifying correct patient, procedure, site, positioning, and special equipment if applicable. A flexible fiberoptic bronchoscope was then introduced through the endotracheal tube. A full airway examination was performed. Entire airway inspected. Airway mucosa was very friable. Thin white secretions appreciated in the entire airway which were suctioned out. Airway left patent after the procedure. The bronchoscope was then withdrawn and the procedure terminated. CONSENT Consent obtained: verbal Consent given by: healthcare agent The benefits, risks and alternatives to the procedure and the potential need for sedation or anesthesia as well as the names, roles, and responsibilities of healthcare team members performing significant interventional tasks were discussed with the patient and/or decision maker. UNIVERSAL PROTOCOL All relevant documentation and testing were reviewed and available. All required blood products, implants, devices and or special equipment were made available as applicable. Pre-procedure verification was conducted and the correct site was marked if required. A fire risk and smoke assessment were done as applicable. The procedural time-out to verify correct patient, correct side/site, and procedure was conducted prior to performing the procedure and confirmed in a procedural pause. PRE-PROCEDURE DETAILS Procedure purpose: diagnostic Indications: airway inspection Airborne infection precaution assessment made: yes SEDATION / ANESTHESIA Anesthesia method: already under sedation POST-PROCEDURE DETAILS Procedure successful: yes Complications: no apparent complications Cosigned by Jefferson Carrion M.D. at 07/06/2025 12:09 AM CDT Associated attestation - Jefferson Carrion M.D. - 07/06/2025 12:09 AM CDT Accredited resident or fellow participated in the case, and the customer care consultant was present for the entire case. * Lucia Hobbs M.D., M.B.A. - 07/05/2025 12:19 AM CDTAssociated Order(s): Intubation Post-Procedure Diagnose(s): Respiratory Failure (HCC) Intubation Performed by: Lucia Hobbs M.D., M.B.A. Authorized by: Lucia Hobbs M.D., M.B.A. Care team members present 1. Jefferson Carrion M.D. 3. Brooklyn Du R.N. Patient location during procedure: ICU / PCU PROCEDURE DETAILS: Mask difficulty assessment: easy mask Final airway type: video laryngoscope Laryngeal Manipulation: no Final best view of glottic structures - Cormack/Lehane Score: grade 1 ETT location: oral VL device: glide scope Lecompte scope blade size: 3 Tube size: 7.5 ETT distance at teeth/gum: 24 Oral tube type: standard ETT Cuffed: yes Airway confirmation: bilateral breath sounds and positive ETCO2 Other previous techniques attempted: none CONSENT Consent obtained: verbal Consent given by: healthcare agent The benefits, risks and alternatives to the procedure and the potential need for sedation or anesthesia as well as the names, roles, and responsibilities of healthcare team members performing significant interventional tasks were discussed with the patient and/or decision maker. UNIVERSAL PROTOCOL All relevant documentation and testing were reviewed and available. All required blood products, implants, devices and or special equipment were made available as applicable. Pre-procedure verification was conducted and the correct site was marked if required. A fire risk and smoke assessment were done as applicable. The procedural time-out to verify correct patient, correct side/site, and procedure was conducted prior to performing the procedure and confirmed in a procedural pause. PRE PROCEDURE DETAILS: Pre evaluation for airway management: airway protection Urgency: elective Preop assessment of probable difficulty: no difficulty anticipated Preoxygenation: HFNC and bag valve mask SEDATION / ANESTHESIA Anesthesia method: deep sedation POST PROCEDURE DETAILS: Procedure outcome: successful Notable Events: no complications Cosigned by Jefferson Carrion M.D. at 07/06/2025 12:09 AM CDT Associated attestation - Jefferson Carrion M.D. - 07/06/2025 12:09 AM CDT Accredited resident or fellow participated in the case, and the customer care consultant was present for the entire case. * Vance Lopez M.D., M.H.A. - 07/04/2025 10:58 PM CDTAssociated Order(s): Critical Care Procedure Critical Care Performed by: Vance Lopez M.D., M.H.A. Authorized by: Vance Lopez M.D., M.H.A. Critical care provider statement: Critical care total time (minutes): 35 Critical care time was exclusive of: separately billable procedures and treating other patients andteaching time CPR was performed on this patient: no Critical care was necessary to treat or prevent imminent or life-threatening deterioration of the following conditions: respiratory failure Critical care was time spent personally by me on the following activities: development of treatment plan with patient or surrogate, discussions with consultants, evaluation of patient's response to treatment, examination of patient, obtaining history from patient or surrogate, ordering and performing treatments and interventions, ordering and review of laboratory studies,ordering and review of radiographic studies, pulse oximetry, re-evaluation of patient's condition, review of old charts, interpretation of cardiac output measurements, documenting in the patient chart, discussions with primary provider and ventilator management I assumed direction of critical care for this patient from another provider in my specialty: no Vance Lopez M.D., M.H.A. 07/04/25 2252 documented in this encounter Consult Notes * Felipa Gauthier PMargaux, D.P.T. - 07/07/2025 1:53 PM CDT Physical Therapy Inpatient Evaluation/Treatment SUBJECTIVE Patient's Name: Jazmin Lyn Referring/Attending Provider: Wali Diego M.B.B.S. Reason for Referral: Physical Therapy Evaluate and Treat Onset Date: 07/04/2025 Pertinent Medical / Surgical History: Medical History[1] Surgical History[2] History of Present Illness: Jazmin Lyn is a 79 y.o. female who was admitted to [facility] in [place] on 07/04/2025 for Respiratory Failure (HCC) [J96.90] Respiratory Failure With Hypoxia (HCC) [J96.91] Acute Respiratory Failure (HCC) [J96.00] Food In Esophagus Causing Other Injury Initial [T18.128A]. Relevant Medical History: admitted 07/04/2025 for aspiration pneumonitis secondary to food impaction Precautions Other Precautions: cognition (baseline) RST PT/OT Falls screen: Unable to assess Pain Assessment: Pain not reported during session. Patient/Caregiver Goals: No goals stated Subjective Comments: Unable to agree to session secondary to medical condition, RN provided agreement Home Living and Equipment: Lives with: Child(kirill), daughter Receives help from: Family Type of Home: House Home Layout: Multi-Level Home Access: Stairs to enter: Number of steps: 2-3, Railing: unilateral handrail Assistive Device Owned: Front wheeled walker Prior Level of Function and Mobility: Basic Activities of Daily Living: Required Assistance Instrumental Activities of Daily Living: Required Assistance Functional Mobility: Modified Independent OBJECTIVE Vital Signs: Vitals monitored throughout session; within normal ranges. Vitals stable per chart review. Evaluation Assessments: Strength: Generalized weakness Balance: Static Sitting: Good (Maintains balance without support) Dynamic Sitting: Good (Maintains balance without support) Static Standing: Good (Maintains balance without support) Dynamic Standing: Fair (Maintains balance with handheld assist) Activity Tolerance: Endurance: Tolerates 20-30 minutes of activity Outcome Measures: -[facility] Inpatient Short Form: -PAC Basic Mobility (V.2) How much help from another person do you currently need???If the patient hasn't done an activity recently, how much help from another person do you think he/she would needif he/she tried? 1. Turning from your back to your side while in a flat bed without using bedrails?: None 2. Moving from lying on your back to sitting on the side of a flat bed without using bedrails?: A Little 3. Moving to and from a bed to a chair (including a wheelchair)?: A Little 4. Standing up from a chair using your arms (e.g., wheelchair, or bedside chair)?: A Little 5. To walk in hospital room?: A Little 6. Climbing 3-5 steps with a railing?: A Little AM-PAC Basic Mobility (V.2) Raw Score: 19 -[facility] Basic Mobility (V.2) Standardized Score: 42.48 Interpretation: Based on scoring guidelines using the raw score value: Those going to home had an average score at or above 18 Those going to facility had an average score at or below 17 Clinicians answer the -[facility] Inpatient Short Form based on observed patient activity and/or clinical judgement (patient can be scored without physically performing each activity). The AM-PAC is one of many factors to consider when discharge planning. Therapeutic Interventions: SIT TO STAND: - Assist Level: supervision of 1 - Device: gait belt and front wheeled walker - Surface: chair and commode - Therapist Delivery: assessed and facilitated - Assist/Cues Provided: verbal for safety and technique STAND TO SIT: - Assist Level: supervision of 1 - Device: gait belt and front wheeled walker - Surface: chair and commode - Therapist Delivery: assessed and facilitated - Assist/Cues Provided: verbal for alignment with seated surface, eccentric control, safety, and upper extremity placement TRANSFER: - Surface:chair to commode and then chair - Assist Level: supervision of 1 - Device: gait belt and front wheeled walker - Approach: stand pivot - Therapist Delivery: assessed and facilitated - Assist/Cues Provided: verbal for forward gaze, placement of gait aid, placement within the walker, and upright posture GAIT: - Distance: 250 feet - Assist Level:supervision of 1 - Device: gait belt and front wheeled walker - Quality: decreased gait speed, downward gaze - Therapist Delivery: assessed and facilitated - Assist/Cues Provided:verbal for forward gaze, placement within the walker, technique, and uprightposture STAIRS: - 2 steps with unilateral handrail - Assist Level: contact guard assist of 1 - Device: gait belt - Navigation Pattern: - Ascending: step to - Descending: step to - Therapist Delivery: assessed and facilitated - Assist/Cues Provided: lower extremity placement and pacing The patient's status was discussed and the following coordination of care occurred with the RN and OT Patient was left in bedside chair with chair alarm on at end of session with call light in reach, all needs met and questions answered. Assessment Discharge Therapy Needs - PT: No further skilled physical therapy If skilled therapy is recommended, skilled therapy can include physical therapy provided by home health, outpatient clinic, or a post-acute facility. The location of these services is determined by the patient's care team in partnership with patient/family. Level of Care Needed - PT: Cognitive assistance needed Barriers to Discharge Home: Current functional status, Fall risk Equipment Recommended - PT: Front-wheeled walker From a physical therapy perspective, the level of care above has been recommended for Ms. Lynafter hospital discharge. This level of care is based on her functional abilities during today's session. This may change throughout the hospital course and will be updated as appropriate. Clinical Impression: Currently, patient presents at functional baseline. Pt met acute PT goals during session. Pt mildlylimited secondary to cognition but able to follow commands. Pt largely supervision-CGA for mobility. PT orders to be completed at this time. Please re-consult should pt have a change in function. Physical therapy treatment is medically necessary to restore and maximize function, maximize safetyand facilitate discharge to home, teach and educate the patient and/or caregivers. Plan PT Plan Comments: Pt met acute PT goals during session. PT orders to be completed. Functional Goals: PT Inpatient Goals PT Goal #1: Pt will transfer sit<>stand supervision in order to decrease burden of care PT Goal #2: Pt will transfer sit<>stand supervision in order to increase functional independence PT Goal #3: Pt will amb 30m supervision with fww in order to improve functional mobility PT Goal #4: Pt will negotiate 2 steps CGA in order to enter/exit home Jazmin Lyn has Fair rehab potential to meet the expected outcomes in a reasonable period of time. Treatment Plan: Plan: Discontinue PT PT Frequency: One-time visit PT Inpatient Duration : Until goals are met or hospital discharge Requires Inpatient Follow-Up: No Patient unable to verbalize agreement to the plan of care and goals due to mental status or level of consciousness, no family present to consult. When/if appropriate, therapy will reassess patient's agreement. Treatment interventions may include: Billing: Tiered PT Evaluation Codes: Comorbid Conditions: Arthritis, Cognitive/memory disorder Personal Factors: Safety awareness, Needs assistive device, Age, Cognition Examination elements: 3 Clinical Presentation: Evolving Clinical Decision Making: Moderate complexity clinical decision making Time Spent with Patient Evaluations PT Eval - Low Complexity: 10 min Therapeutic Interventions Gait Training (min): 15 min Time Tracking Total Timed Units (min): 15 min Total Treatment Time (min): 25 min Felipa Gauthier PMargaux, D.P.T. 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 Gastroesophageal Reflux Disease NOS 08/2019 Hypothyroidism 1955 [2] Past Surgical History: Procedure Laterality Date DILATATION AND CURETTAGE 1974, miscarriage ESOPHAGOGASTRODUODENOSCOPY N/A 11/16/2022 Procedure: ESOPHAGOGASTRODUODENOSCOPY; Surgeon: Bimal Mullen M.D.; Location: [facility] LAB ESOPHAGOGASTRODUODENOSCOPY N/A 11/18/2022 Procedure: ESOPHAGOGASTRODUODENOSCOPY; Surgeon: Efe Ortiz M.D.; Location: [facility] GI [facility] OTHER SURGICAL HISTORY salivary gland, 1984 * Aviva Singh O.T., MOT - 07/07/2025 1:25 PM CDT Occupational Therapy Acute Hospital Inpatient Evaluation/Treatment SUBJECTIVE Patient's Name: Jazmin Lyn Referring/Attending Provider: Wali Diego M.B.B.S. Reason for Referral: Occupational Therapy Evaluation and Treatment Onset Date: 07/04/2025 PERTINENT MEDICAL / SURGICAL HISTORY: Medical History[1] Surgical History[2] History of Present Illness: Jazmin Lyn is a 79 y.o. female who was admitted to [facility] in [place] on 07/04/2025 for Respiratory Failure (HCC) [J96.90] Respiratory Failure With Hypoxia (HCC) [J96.91] Acute Respiratory Failure (HCC) [J96.00] Food In Esophagus Causing Other Injury Initial [T18.128A]. Relevant Medical History: dementia, dysphagia, hiatal hernia; admitted with acute hypoxic respiratory failure 2' acute food impaction. Precautions Other Precautions: cognition (baseline) Falls screen: Unable to assess Pain Assessment: Pain not reported during session. Patient/Caregiver Goals: No goals stated Subjective Comments: Patient unable to agree due to cognition, Primary team requesting evaluation as planning to discharge home within an hour. Home Living and Equipment: Lives with: Family - daughter Receives help from: Family Type of Home: House Home Layout: Two Level Home Access: Stairs to enter: Number of steps: 1, railing present unknown if unilateral or bilateral Bathroom Accessibility: Bathroom set-up unknown Assistive Device Owned: Front wheeled walker Home Living Comments: information obtained from CM note 07/06 due to patient's baseline cognition. Prior Level of Function and Mobility: Basic Activities of Daily Living: Supervision generally, assistance with showering per CM note Instrumental Activities of Daily Living: Required Assistance Functional Mobility: Modified Independent, Front wheeled walker OBJECTIVE Vital Signs: Vitals monitored throughout session; within normal ranges. Evaluation Assessment: STRENGTH: Generalized weakness RANGE OF MOTION: Not formally assessed but appears within functional limits based on observation BALANCE: Static Sitting: Good (Maintains balance without support) Dynamic Sitting: Good (Maintains balance without support) Static Standing: Good (Maintains balance without support) Dynamic Standing: Fair (Maintains balance with handheld assist) ACTIVITY TOLERANCE: Endurance: Tolerates 20-30 minutes of activity DOMINANT HAND: Right Outcome Measures: AM-PAC Inpatient Short Form: Putting on and taking off regular lower body clothing?: A Little Putting on and taking off regular upper body clothing?: None Taking care of personal grooming such as brushing teeth?: None Bathing (including washing, rinsing, drying)?: A Little Toileting, which includes using toilet, bedpan, or urinal?: A Little Eating meals?: None Daily Activities Raw Score (max 24): 21 Daily Activities Standardized Score: 44.27 Interpretation: Based on scoring guidelines using the raw score value: Those going to home had an average score at or above 18 Those going to facility had an average score at or below 17 Clinicians answer the AM-PAC Inpatient Short Form based on observed patient activity and/or clinical judgment (patient can be scored without physically performing each activity). The AM-PAC is one ofmany factors to consider when discharge planning. Cognition: Cognitive impairments at baseline Benefits from repetition of cues for safety, slightly impulsive. Therapeutic Interventions: ACTIVITIES OF DAILY LIVING: GROOMING - Assist Level: supervision/set-up - Patient Location: standing at sink - Activity: brushing teeth - regular or soft brush, combing hair - Therapist Delivery: assessed - Assist/Cues Provided: none - Tolerated: standing 2-3 minutes UPPER BODY DRESSING - Assist Level: supervision/set-up - Patient Location: chair - UB Dressing Item: hospital gown - Therapist Delivery: assessed, instructed - Assist/Cues Provided: verbal for initiation LOWER BODY DRESSING - Assist Level: minimal assist - Patient Location: chair - LB Dressing Item: incontinent brief - Therapist Delivery: assessed, instructed - Assist/Cues Provided: verbal for initiation TOILETING - Assist Level: total assist - Patient incontinent of urine during session after sneezing, able to report incontinence, providedtotal assistance due to severity of incontinence. Anticipate patient could complete makayla-cares without issue. FUNCTIONAL TRANSFERS: SIT<>STAND - Assist Level: supervision/set-up - Device: front wheeled walker and gait belt - Surface: chair - Therapist Delivery: assessed - Assist/Cues Provided: verbal for initiation Team Communication: The patient's status was discussed and coordination of care occurred with RN, PT, Primary Service Co-treat with physical therapy as patient benefits from 2 skilled therapists present in order to optimize safety and progression of mobility and self-care skills. Total time spent with patient 25 minutes. Patient was left in bedside chair with chair alarm on, with nursing/[employer] at end of session with calllight in reach, all needs met and questions answered. Assessment Discharge Therapy Needs - OT: No further skilled therapy If skilled therapy is recommended, skilled therapy can include occupational therapy provided in home health, outpatient or post-acute facility. The location of these services is determined by patient's care team in partnership with patient/family. Level of Care Needed - OT: Assistance with medication set up/administration, Assistance with showering/bathing, Assistance with housekeeping, Cognitive assistance needed, Physical assistance needed, Assistance with transportation, Assistance with associate financial representative, Assistance with shopping, Assistance with dressing, Assistance with meal preparation, Assistance with toileting Barriers to Discharge Home: None Clinical Impression: Jazmin was admitted due to an acute food impaction resulting in respiratory failure. She lives at home with her daughter who assists with showering. Jazmin has dementia at baseline and was unable to provide details regarding her functional independence. She completed all self-cares and functional mobility with minimal verbal cues for initiation and supervision for safety with a front wheeled walker. She is likely at her functional baseline and has no further skilled acute OT needs. No post acute OT needs, dismissing home with family support seems reasonable. Plan OT Plan Comments: at functional baseline Progress: Evaluation only, no skilled therapy treatment indicated Rehab potential: Ms. Lyn has good potential to achieve established occupational therapy goalswithin the time frame outlined below. OT Frequency: OT Frequency: One-time visit Requires Inpatient OT Follow-Up: No Plan: Discontinue OT Occupational Therapy Attestation Statement: Patient unable to verbalize agreement to the plan of care and goals due to mental status or level of consciousness, no family present to consult. When/if appropriate, therapy will reassess patient's agreement. Billing: Tiered OT Evaluation Codes: Comorbid Conditions: Arthritis, Cognitive/memory disorder Personal Factors: Safety awareness, Needs assistive device Occupational Profile and History review: Brief Performance Deficits: 1 - 3 performance deficits Evaluation Complexity: Low Time Spent with Patient Evaluations OT Eval - Low Complexity : 25 min Time Tracking Total Treatment Time (min): 25 min Mily Singh O.T., MOT 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 Gastroesophageal Reflux Disease NOS 08/2019 Hypothyroidism 1955 [2] Past Surgical History: Procedure Laterality Date DILATATION AND CURETTAGE 1974, miscarriage ESOPHAGOGASTRODUODENOSCOPY N/A 11/16/2022 Procedure: ESOPHAGOGASTRODUODENOSCOPY; Surgeon: Bimal Mullen M.D.; Location: [facility] GI LAB ESOPHAGOGASTRODUODENOSCOPY N/A 11/18/2022 Procedure: ESOPHAGOGASTRODUODENOSCOPY; Surgeon: Efe Ortiz M.D.; Location: [facility] GI LAB OTHER SURGICAL HISTORY salivary gland, 1983 * Javier Barker M.B.B.S. - 07/07/2025 7:31 AM CDTAssociated Order(s): Cardiology consult ([facility]) - Heart Rhythm ([facility]) Images from the original note were not included. HRS CONSULT SERVICE - eCONSULT NOTE Hospital Day 3 Cardiology consult ([facility]) - Heart Rhythm ([facility]) Referring Provider: Mounika Briones M.D., M.S. Reason for Consult: Recurrent new SVT, s/p adenosine 6mg on two seperate occasions over last 48H, one more over night but self aborted, started on BB 12.5 mg BID, ready for discharge overall, ? any additional work up/intervention you would recommend IP vs OP SUBJECTIVE CHIEF COMPLAINT Acute hypoxic respiratory failure in the setting of aspiration. HISTORY OF PRESENT ILLNESS Ms. Lyn is a 79 y.o. 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 We are being consulted for SVT management. Since she was hospitalized, patient had bronchoscopy with diffuse white secretions, no gross food particles, EGD was performed at bedside with removal of impacted food (chicken). Patient had esophagram with strictures of the proximal and distal intrathoracic esophagus. On 07/05/2025 patient was stable transferred to the floor but had asymptomatic narrow complex regular tachycardia in the rates [id number] twice overnight. Patient received IV adenosine and responded to that. She was started on metoprolol tartrate 12.5 b.i.d. night of 07/05/2025 and we are being consulted for these episodes. The patient was not seen as this was an eConsult.Today, patient hemodynamically stable, blood pressure systolic 130-1 50s, heart rate around 70-80s average. Medications she is on donepezil 10, was started on metoprolol tartrate 25 b.i.d.. 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 Lyn is a 79 y.o. 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 We are being consulted for SVT management. At this time looking at her telemetry, she has narrow complex tachycardia, likely triggered by PAC with retrograde P waves seen overall suggestive of AVNRT. Since she was monitored on telemetry and was asymptomatic, based on her age and overall other comorbid conditions, we think that it is appropriate to proceed and continue her medical therapy. She was started on metoprolol tartrate which we agree with, and I spoke with the primary team and recommended up titrating it as tolerated. She can follow up with her primary care physician or General Cardiology in the outpatient setting. If she is having recurrent symptomatic episodes, consideration for alternative medical therapy (or ablation) can be considered. I personally reviewed patient's investigations. I reviewed patient's chart for pertinent information. This case was discussed with Dr. Edmondson. We will sign off at this time. Feel free to reach out with any questions or concerns. * Jack Pearce ROsmanN. - 07/06/2025 1:28 PM CDTAssociated Order(s): IP CONSULT TO CARE MANAGEMENT Discharge Planning Assessment SUBJECTIVE Assessment Information Referral Data Referral Source: Early Screen for Discharge Planning Referral Reason: Discharge Planning Previous Assessment: No Principal Data Architect Services Used: No Primary Language: Libyan Principal Data Architect Services Used: No Person(s) Present During Interview: Son/FERNANDO Lyn History of Present Illness #1 Respiratory Failure (HCC) #2 Acute Respiratory Failure (HCC) #3 Delirium (not otherwise specified) #4 Food In Esophagus Causing Other Injury Initial #5 Stricture Esophagus #6 Dementia In Other Diseases Classified Elsewhere, Severe, Without Behavioral Disturbance, Psychotic Disturbance, Mood Disturbance, And Anxiety (HCC) Social History Marital Status: Family / Household: Children Support System: children Social Drivers of Health with Concerns No concerns present OBJECTIVE Finance/Insurance Primary insurance: [employer] FOR [employer] [facility] [place] [facility] [place] Secondary insurance: N/A benefits: No Advance Directives Legal Decision Maker: Durable Power of Warehouse Stock Clerk Healthcare Advance Directives: Advanced Care Plan Advance Directives Status: Activated Baseline Functional Status Baseline Activities of Daily Living Mobility: Independent, Requires aide of device Dressing: Independent Feeding: Independent Bathing: Needs assistance Grooming: Independent Toileting: Independent Behavior: Appropriate, Pleasant, Calm, Cooperative, Confused Communication: Can write, Talks, Understands speaking, Understands Libyan, Reads Shopping: Dependent Medication Management: Dependent Housekeeping: Dependent Meal Prep: Dependent Assistive Devices: Walker - front wheeled Transportation: Support from family Managing Finances: Dependent Baseline Services/Resources Primary care clinic and provider: No care steam hoist operator to display Additional Resources: Additional Services: NA Anticipated Needs Functional Status: Bathing, Dressing, Meal preparation, Medication set- up/administration, Housekeeping, Shopping, Managing finances Assistive Devices: None Anticipated Modifications to the Patient's Home: None Transportation Needs: Support from family Does the patient need discharge transport arranged?: No Anticipated Discharge Destination: Home or Self Care Referrals Initiated: None clinical recruiter provided Discharge Planning Guide ([id number]), information regarding the dismissal process, and the Senior Linkage Line ([place] Board on [employer]) handout. ASSESSMENT / PLAN ASSESSMENT: The clinical recruiter met with Jazmin Lyn's son Spencer Lyn to discuss her current hospitalization and home going needs. The patient was unaccompanied. The patient was unable to participate so therefore the clinical recruiter discussed patient's history, current hospitalization, and discharge planning needs with Spencer Lyn. The role of clinical recruiter was reviewed. The patient's son reviewed her prior level of care and support system. The patient receives support from her children. Jazmin resides with her daughter Cathie in a multi-level home with stairs to enter with rails. Housekeeping, grocery shopping, meal prep, and other household responsibilities have previously been completed by patient's daughter. The patient lives with her daughter Cathie in a two level home, with a one step entrance. The patient's daughter assists the patient with ADLs. The patient can walk in the home with a walker. The patient has advanced directives, and has no financial concerns at this time. The patient's family will provide transportation at discharge. - At this time, the care team has not identified any skilled post-hospital discharge care needs that require the assistance of the Care Management Team. The patient's potential needs at dismissal based on their home setting, previous needs and responsibilities, homebound status, and relevant assessments were discussed. The patient will be safe and supported to discharge home with family when medically ready. Support will be provided by the patient's children. clinical recruiter recommendations include: discussing needed assistance with family, friends, or neighbors . Pending hospital course and medical readiness, no barriers to dismissal have been identified at this time. The following hospital-based consult orders and/or referrals placed or requested: None. PLAN: The patient's son agrees with the following plan. Patient's Anticipated Discharge Destination: Home or Self Care Transportation upon dismissal will be provided by family--Children. clinical recruiter encouraged the patient to reach out with any questions/concerns. Care Management will sign-off. Please reconsult Care Management if any transition planning needs are identified Signed by: Jack Pearce R.N. 07/06/2025 * Khai Diaz M.S., RDN, LD - 07/06/2025 6:09 AM CDTAssociated Order(s): IP CONSULT TO DIETITIAN Clinical Nutrition: Initial Assessment Clinical Nutrition was requested to evaluate patient for positive nursing baseline nutrition screenwith a MST score of 2 or greater Completed visit with patient today as part of face to face care. SUBJECTIVE Ms. Lyn is a 79 y.o. female admitted for Respiratory Failure (HCC) Pertinent History: Medical History[1] Surgical History[2] Current Nutrition: Currently on minced and moist diet with thin liquids. Minimal po recorded, did have 100% of an ice cream yesterday. Patient willing to drink oral nutrition supplements. Nutrition Prior to Admission: Patient reports that she eats 3 meals a day at home. Does not endorseany weight loss or changes in how clothes fit. She states she takes a multivitamin daily. Nutrition Education/Counseling: no formal education, however discussed the importance of adequate nutrition Food Allergies/Intolerances: Allergies[3] OBJECTIVE Current nutrition orders: Dietary Orders (From admission, onward) Start Ordered 07/05/251929 Adult Diet Dysphagia; Thin (TN0); Minced and Moist (MM5); Feeding assistance (Adult Diet) Diet effective now Question Answer Comment Diet texture: Dysphagia Drink/Liquid Consistency: Thin (TN0) Food Consistency: Minced and Moist (MM5) Tray type: Feeding assistance 07/05/251929 Pertinent Labs: Last 3 results Lab Units 07/06/25 0633 07/05/25205625 0336 07/04/25230207/04/252300 SODIUM P mmol/L -- -- -- -- 136 POC SODIUM mmol/L -- -- -- 138 -- SODIUM mmol/L 141 140 139 -- -- POTASSIUM mmol/L 4.3 4.4 4.3 -- -- POC POTASSIUM VENOUS mmol/L -- -- -- 3.9 -- POTASSIUM P mmol/L -- -- -- -- 4.0 CHLORIDE P mmol/L -- -- -- -- 101 CHLORIDE mmol/L 109* 107 103 -- -- BUN P mg/dL -- -- -- -- 26* BUN mg/dL 19 21 23* -- -- CREATININE mg/dL 0.97 0.92 0.88 -- 0.82 PHOSPHORUS INORGANIC mg/dL 2.5 2.8 3.3 -- -- CALCIUM P mg/dL -- -- -- -- 8.6* CALCIUM mg/dL 8.2* 8.7* 8.9 -- -- MAGNESIUM RL mg/dL -- 2.8* -- -- -- MAGNESIUM mg/dL 2.4* -- -- -- -- Chewing and Swallowing: DENTAL SCHEDULER completed eval and VFSS. Recommend level 5 minced and moist diet and level 0 thin liquids. Noted mild to moderate oral phase dysphagia , mild pharyngeal stage dysphagia and signs of esophageal dysphagia. GI Function:Last BM Date: 07/05/25, [place] Stool Chart: Type 3: Like a sausage but with cracks on the surface, Passing Flatus: Yes Tube Information: Placement confirmed: n/a Edema:Edema: None,Right Upper Extremity Edema: +1 Pit 2mm, slight indentation, barely perceptible (IV infiltration), , , , , Integumentary/Wounds: Lines/Drains/Airways None Medications: Current Medications[4] Anthropometrics: Height: 156 cm Admission Weight: 60.9 kg (07/04/2025) Current Weight: 58.9 kg BMI (Calculated): 24.2 kg/m?? Weight change since admission: -2 kg Net IO Since Admission: 690 mL [07/06/25 0842] Weight history: Weight appears stable since 10/2022 Wt Readings from Last 12 Encounters: 07/06/25 58.9 kg 10/12/25 60.9 kg 01/22/25 59.9 kg 11/18/22 58.7 kg 09/23/21 62.5 kg 09/18/19 75.4 kg 09/10/19 75 kg 09/02/19 75.8 kg 08/30/19 81 kg 08/25/19 81.1 kg 07/13/19 81.1 kg 07/12/19 80.6 kg ASSESSMENT / PLAN Nutrition Diagnosis: Swallowing difficulty related to dysphagia as evidenced by need for mechanically altered diet. Initiated Malnutrition Assessment: ASPEN Criteria of Malnutrition: Nutritional Status: Malnutrition criteria not met Based on: Energy Intake: No Change Interpretation of Weight Loss: No Change Body Fat: Mild Loss (suspect is usual body habitus) Muscle Mass: Normal Fluid Accumulation: Absent Estimated Needs: Total Calorie Needs: 4732-3183 calories/day Method to Estimate Energy Needs: kcal/kg (25-30 kcal/kg) Weight Used for Equation Calculations: 59 kg Total Protein Needs: 71 - 89 grams/day (Method to Estimate Protein Needs (g/kg): 1.2 - 1.5 gm/kg) Weight Used to Calculate Protein Needs (Kg): 59 kg Nutrition Intervention: Interventions: Modify composition of meals and/or snacks, Medical food supplement, Vitamin and mineral supplements Monitoring/Evaluation: Nutrition parameter to monitor: Meals/Supplement Intake, Weight Status, Pertinent Labs, Chewing/Swallowing, and Skin Integrity Desired Outcome: Consume adequate nutrition orally Maintain weight Tolerate diet texture per OT/DENTAL SCHEDULER dysphagia recommendations Recommendations: Offer oral nutrition supplements daily Multivitamin with minerals Diet texture per dysphagia therapy Clinical Nutrition will continue to follow. For questions about patient's nutritional care please contact pager [phone] on weekdays 07:30-16:00 or [phone] on weekends/holidays ([facility]) [phone]. 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 Gastroesophageal Reflux Disease NOS 08/2019 Hypothyroidism 1955 [2] Past Surgical History: Procedure Laterality Date DILATATION AND CURETTAGE 1974, miscarriage ESOPHAGOGASTRODUODENOSCOPY N/A 11/16/2022 Procedure: ESOPHAGOGASTRODUODENOSCOPY; Surgeon: Bimal Mullen M.D.; Location: [facility] GI LAB ESOPHAGOGASTRODUODENOSCOPY N/A 11/18/2022 Procedure: ESOPHAGOGASTRODUODENOSCOPY; Surgeon: Efe Ortiz M.D.; Location: [facility] GI LAB OTHER SURGICAL HISTORY salivary gland, 1983 [3] Allergies Allergen Reactions Nsaids (Non-Steroidal Anti-Inflammatory Drug) GI bleeding [4] Current Facility-Administered Medications: acetaminophen tablet 1,000 mg (TylenoL), 1,000 mg, oral, 4x Daily PRN, Ya Taveras M.D. [Held by provider] donepeziL tablet 10 mg (Aricept), 10 mg, oral, Daily at bedtime, Ya Taveras M.D. famotidine tablet 10 mg (Pepcid), 10 mg, oral, BID, Ya Taveras M.D., 10 mg at 07/05/252049 heparin (porcine) injection 5,000 Units, 5,000 Units, subcutaneous, Q8H [facility], Ya Taveras M.D.,5,000 Units at 07/05/252149 metoprolol tablet 12.5 mg (Lopressor), 12.5 mg, oral, BID, Ya Taveras M.D., 12.5 mg at 07/05/252149 [Held by provider] lejjmgehxrti-unpb-UD-Ca-minerals 400 mcg (folic acid) tablet 1 tablet, 1 tablet,oral, Daily, Ya Taveras M.D. [Held by provider] pantoprazole DR tablet 40 mg (Protonix), 40 mg, oral, Daily before morning meal,Ya Taveras M.D. pantoprazole injection 40 mg (Protonix), 40 mg, intravenous, Q24H [place], Ya Taveras M.D., 40 mgat 07/05/25 0839 polyethylene glycol powder packet 17 g (Miralax), 17 g, oral, Daily PRN, Ya Taveras M.D. ramelteon tablet 8 mg (Rozerem), 8 mg, oral, At bedtime PRN, Ya Taveras M.D., 8 mg at 07/05/25 2316 sennosides-docusate sodium 8.6-50 mg per tablet 1 tablet (Senokot-S), 1 tablet, oral, BID, Mounika Briones M.D., M.S. * Roseline Maranda J, CCC-DENTAL SCHEDULER - 07/05/2025 10:55 AM CDT Speech Language Pathology Dysphagia Evaluation- Acute Care Session Type: Evaluation Length of session: 42 minutes Time of Dysphagia Session: 1055 SUBJECTIVE Referred By: [facility] Medicine 3 History: Ms. Lyn is a 79 y.o. female who was admitted to [facility] on 07/04/2025 due to concern for food bolus impaction after swallowing chicken. She was intubated in the ICU for airway protection prior to bedside EGD. Bronchoscopy showed diffuse thin white secretions but no food particles.EGD completed with removal of impacted chicken. Stenosis was noted at the GE junction and more proximally in the esophagus, this was biopsied. Ms. Lyn's medical history is well documented in the electronic medical record, please refer to admission notes for full history. Briefly, medical history is significant for GI bleed, grade D esophagitis, GERD, Hankins's esophagus, hiatal hernia, food impaction x1, Alzheimer's dementia, anemia, alcohol use disorder, and subdural hematoma (2019). Ms. Lyn has received prior Speech Pathology services. A VFSS was recommended in January 2025 but appears this was not completed prior to patient's discharge. Speech Pathology consult was received for evaluation of dysphagia. Prior Level of Functioning: Ms. Lyn was previously tolerating regular diet with thin liquids. Patient/Family Goal(s): To drink water General Family/Caregiver Present: No Behavior: Alert, Cooperative Pain Pain Assessment Pain Assessment: 0-10 Numeric Pain Intensity Scale Pain Score: 0 - No pain OBJECTIVE Objective Session Data Oral Motor Dentition: Adequate Facial Symmetry: Within Functional Limits (WFL) Labial Structure and Function: Within Normal Limits (WNL) Lingual Structure and Function: Within Normal Limits (WNL) Palatal Structure and Function: Within Normal Limits (WNL) Mandible Strength and Function: Within Normal Limits (WNL) Laryngeal Function: Within Normal Limits (WNL) Motor Speech Voice: Impaired Reduced Loudness: (-1) Mild Hoarseness: (1) Mild Respiration: Within Normal Limits (WNL) Articulation: Within Normal Limits (WNL) Intelligibility: Intelligible Consistencies Assessed: None this session - NPO for esophagram VFSS: Flowsheet Row Most Recent Value Description of Procedure Previous MBS/VFSS No Planes Tested Lateral, AP Radiologist present Other Procedure Comments Patient participated in an esophagram after the VFSS. Type Assessment MBS IMP Statement of Consent The patient understands and wishes to proceed Consistencies Assessed (MBS) Consistencies Assessed Yes Level 0 Thin Presentation Cup, Spoon, Straw Lip Closure 0: No labial escape Tongue Control 2: Posterior escape of less than half of bolus Bolus Transport/Lingual Motion 3: Repetitive/disorganized tongue motion Oral Residue 1: Trace residue lining oral structures Oral Residue Location Tongue Onset of Pharyngeal Swallow 3: Bolus head in pyriforms Soft Palate Elevation 0: No bolus between soft palate (SP)/pharyngeal wall (PW) Laryngeal Elevation 1: Partial superior movement of thyroid cartilage/partial approximation of arytenoids to epiglottic petiole Anterior Hyoid Excursion 1: Partial anterior movement Epiglottic Movement 0: Complete inversion Laryngeal Vestibular Closure 1: Incomplete, narrow column air/contrast in laryngeal vestibule Pharyngeal Stripping Wave 1: Present - diminished Pharyngoesophageal Segment Opening 1: Partial distension/partial duration, partial obstruction of flow Tongue Base Retraction 2: Narrow column of contrast or air between TB and PW Pharyngeal Residue 2: Collection of residue within or on pharyngeal structures Pharyngeal Residue Location Diffuse (>3 areas) Esophageal Clearance 1: Esophageal retention Penetration/Aspiration Scale 3: Material enters the airway, remains above the vocal folds, and is not ejected from the airway. Penetration Yes, during the swallow Aspiration No Level 2 Mildly Thick Presentation Cup, Straw Lip Closure 0: No labial escape Tongue Control 2: Posterior escape of less than half of bolus Bolus Transport/Lingual Motion 3: Repetitive/disorganized tongue motion Oral Residue 2: Residue collection on oral structures Oral Residue Location Tongue Onset of Pharyngeal Swallow 1: Bolus head in valleculae Soft Palate Elevation 0: No bolus between soft palate (SP)/pharyngeal wall (PW) Laryngeal Elevation 1: Partial superior movement of thyroid cartilage/partial approximation of arytenoids to epiglottic petiole Anterior Hyoid Excursion 1: Partial anterior movement Epiglottic Movement 1: Partial inversion Laryngeal Vestibular Closure 1: Incomplete, narrow column air/contrast in laryngeal vestibule Pharyngeal Stripping Wave 1: Present - diminished Pharyngoesophageal Segment Opening 1: Partial distension/partial duration, partial obstruction of flow Tongue Base Retraction 2: Narrow column of contrast or air between TB and PW Pharyngeal Residue 1: Trace residue within or on pharyngeal structures Pharyngeal Residue Location Valleculae Penetration/Aspiration Scale 3: Material enters the airway, remains above the vocal folds, and is not ejected from the airway. Penetration Yes, during the swallow Aspiration No Level 4 Puree Presentation Spoon Lip Closure 0: No labial escape Tongue Control 2: Posterior escape of less than half of bolus Bolus Transport/Lingual Motion 3: Repetitive/disorganized tongue motion Oral Residue 2: Residue collection on oral structures Oral Residue Location Tongue Onset of Pharyngeal Swallow 1: Bolus head in valleculae Soft Palate Elevation 0: No bolus between soft palate (SP)/pharyngeal wall (PW) Laryngeal Elevation 1: Partial superior movement of thyroid cartilage/partial approximation of arytenoids to epiglottic petiole Anterior Hyoid Excursion 1: Partial anterior movement Epiglottic Movement 0: Complete inversion Laryngeal Vestibular Closure 0: Complete, no air/contrast in laryngeal vestibule Pharyngeal Stripping Wave 1: Present - diminished Pharyngoesophageal Segment Opening 1: Partial distension/partial duration, partial obstruction of flow Tongue Base Retraction 2: Narrow column of contrast or air between TB and PW Pharyngeal Residue 2: Collection of residue within or on pharyngeal structures Pharyngeal Residue Location Tongue Base, Valleculae Esophageal Clearance 1: Esophageal retention Penetration/Aspiration Scale 1: Material does not enter airway Penetration No Aspiration No Level 7 Regular Lip Closure 0: No labial escape Tongue Control 3: Posterior escape of greater than half of bolus Bolus Prep/Mastication 2: Disorganized chewing/mashing with solid pieces of bolus unchewed Bolus Transport/Lingual Motion 3: Repetitive/disorganized tongue motion Oral Residue 2: Residue collection on oral structures Oral Residue Location Tongue Onset of Pharyngeal Swallow 1: Bolus head in valleculae Soft Palate Elevation 0: No bolus between soft palate (SP)/pharyngeal wall (PW) Laryngeal Elevation 1: Partial superior movement of thyroid cartilage/partial approximation of arytenoids to epiglottic petiole Anterior Hyoid Excursion 1: Partial anterior movement Epiglottic Movement 0: Complete inversion Laryngeal Vestibular Closure 0: Complete, no air/contrast in laryngeal vestibule Pharyngeal Stripping Wave 1: Present - diminished Pharyngoesophageal Segment Opening 1: Partial distension/partial duration, partial obstruction of flow Tongue Base Retraction 2: Narrow column of contrast or air between TB and PW Pharyngeal Residue 2: Collection of residue within or on pharyngeal structures Pharyngeal Residue Location Tongue Base, Valleculae Esophageal Clearance 1: Esophageal retention Penetration/Aspiration Scale 1: Material does not enter airway Penetration No Aspiration No MBSImP Scores Oral Impairment Score 13 Pharyngeal Impairment Score 10 Esophageal Impairment Score 1 Patient/Caregiver Training and Education:role of DENTAL SCHEDULER, rational of assessment/evaulation, results ofassessment/evaluation, rationale for intervention provided, and strategies/precautions. Patient/caregivers verbalized understanding of the information provided. At the end of today's session patient was left in bed alone. Call light was left within reach. Patient's needs and questions were addressed to the best of my ability and within the scope of Speech Pathology during today's session. Assessment Clinical Swallow Evaluation: Ms. Lyn was alert and oriented to self. She was able to follow simple commands for oral mech examination which was largely unremarkable. No PO trials were administered as she was NPO for an esophagram later today. Recall that she is admitted with food impaction and EGD revealed narrowing at the level of the GE junction, and a large piece of chicken was removed from the esophagus. Overall, she presents with suspected esophageal dysphagia and there is low overall suspicion for oropharyngealdysphagia. Her case was discussed with CCM team, and they requested that we complete a videofluoroscopic swallow study (VFSS) prior to the esophagram scheduled later today for a thorough assessment of all three phases of swallow function. Videofluoroscopic Swallow Study (VFSS): Lateral and A-P views were recorded as the patient swallowed thin barium, mildly thick barium (lateral and A-P), applesauce mixed with barium pudding (lateral and A-P), and cookie tagged with barium pudding. Lip closure was adequate. Posterior containment was reduced. Mastication was inadequate with solid pieces unchewed. Moderate oral residue was present after the swallow. Moderate oral bolus holding was observed. Velopharyngeal closure was complete. The pharyngeal swallow response was initiated at the vallecula with mildly thick liquids, pureed and regular solids, and at the pyriform sinuses with thin liquid. Range of tongue base retraction was mildly reduced and the pharyngeal stripping wave was mildly reduced. There was mild-moderate post-swallow residue of solids>liquids in the valleculae after the swallow. Hyolaryngeal elevation was mildly reduced, anterior hyoid excursion was mildly reduced, and epiglottic inversion was incomplete but improved with increased viscosity. Laryngeal vestibule closure was reduced, resulting in very trace amount of laryngeal penetration during the swallow (thin and mildly thick liquids). Penetrated material did not reach the vocal folds and noaspiration was observed. There was abnormal contour noted at the level of the cricopharyngeus, withsignificant bolus retention directly below this region (greatest with pureed and regular textured solids). AP view revealed a grossly symmetric bolus column through the level of the cervical esophagus. Liquid wash appeared to help reduce the retention in the cervical esophagus. Please see radiologist report for dedicated esophagram findings. Summary: Overall, Ms. Lyn is demonstrating a mild-moderate oropharyngeal dysphagia in the setting of dementia, as well as significant esophageal phase dysphagia with significant bolus retention observedin the upper/cervical esophagus. Dysphagia is characterized by generalized weakness, oral bolus holding, and impaired laryngeal vestibule closure during the swallow. However, esophageal phase dysphagia appears to be the main barrier to safe swallowing at this time. Results of the study were reviewed with the patient , nurse, and medical team. Given the results ofthe swallow study, recommend the patient initiate on a modified diet of thin liquids (Level 0) and minced and moist solids (Level 5). However, diet advancement is at the discretion of CCM team and atthis time they are awaiting esophagram results before advancing patient's diet. Dysphagia treatmentis indicated and will include, diet tolerance monitoring and patient/family education.. Select images and clips from today's study are available in [employer]. Goals: Dysphagia Group Home Goal Dysphagia Grain Trimmer Goal: Patient will tolerate least restrictive diet without overt s/s suggestiveof aspiration Dysphagia Group Home Goal Progress Toward Goal: Progress toward goal completion: continue on target Dysphagia Short Term Goal 1 Dysphagia Short Term Goal 1: Patient will complete instrumental evaluation to evaluate pharyngeal swallow function. Dysphagia Short Term Goal 1 Progress Toward Goal: Goal met: complete goal Dysphagia Short Term Goal 2 Dysphagia Short Term Goal 2: Patient/family/staff will implement standard reflux precautions and safe swallow strategies/precautions across 2/2 sessions, following education Dysphagia Short Term Goal 2 Progress Toward Goal: Progress toward goal completion: continue on target Diagnosis: Dysphagia Consistent with a diagnosis of:: Mild to moderate oral stage dysphagia, Mild pharyngeal stage dysphagia, Signs of esophageal dysphagia observed Plan DYSPHAGIA RECOMMENDATIONS: Diet to be advanced at the discretion of patient's CCM team, if they choose to advance diet, recommend: Diet Recommendation-Solids: IDDSI Level 5 Minced & Moist Diet Recommendation-Liquids: IDDSI Level 0 Thin Medication Recommendation: Crushed (per physician/pharmacy approval) (or liquid form may be optimalgiven esophageal phase findings) Safety Precautions: Patient needs supervision and verbal reminders in order to implement the below stated precautions: - Strict Reflux Precautions: Sit upright and remain upright 60 minutes after PO intake - Alternate bites/sips - Take small bites/sips - Intermittently clear throat DENTAL SCHEDULER to follow Discharge Location: Unknown DENTAL SCHEDULER Ongoing Services: Ongoing formal Speech Pathology services Duration of Treatment: until goals are met Rehab Potential: Fair Thank you, Bailee Dukes MA, CCC-DENTAL SCHEDULER Contact: Pager #[phone] Speech-Language Pathologist Speech Pathology Service Pager: Dysphagia [phone] Speech Pathology Service Pager: Communication [phone] documented in this encounter Nursing Notes * Nataliia Robertson R.N. - 07/07/2025 5:03 PM CDT Patient was discharged with her daughter. IV was removed and vitals stable before discharge. AVS was printed and thoroughly gone over with patient and daughter. Education provided. Questions answeredto patient and family satisfaction. * Carlos Alberto Umaña, R.R.T. - 07/06/2025 7:34 AM CDT Patient is a 79 y.o. female admitted on 07/04/2025 Chief Complaint: Chief Complaint Patient presents with Food Bolus Shift Summary: 07:30 Patient remains room air at this time. Respiratory assessment completed, oxygen device checked, and no other respiratory interventions needed at this time. PLAN OF CARE: RT will continue to assess respiratory status while in the ICU, and provide respiratory care as needed. Oxygen Therapy: $Delivery Method: Room air Principal Problem #1 Respiratory Failure (HCC) #2 Acute Respiratory Failure (HCC) #3 Delirium (not otherwise specified) #4 Food In Esophagus Causing Other Injury Initial #5 Stricture Esophagus #6 Dementia In Other Diseases Classified Elsewhere, Severe, Without Behavioral Disturbance, Psychotic Disturbance, Mood Disturbance, And Anxiety (HCC) Electronically signed by: Carlos Alberto Umaña R.R.T. 07/06/25 7:36 AM CDT * Yun Haywood R.N. - 07/06/2025 2:43 AM CDT Problem: SAFETY ADULT Goal: Maintain a safe environment Outcome: Progressing Shift Goals: Clinical Goals for the Shift: Patient will remain vitally stable throughout shift. Identify possible barriers to meeting goals/advancing plan of care: ICU level care End of Shift Summary: Patient received @1900, afebrile, pain free, RASS of +1 to +2. Around 2029, patient flipped into SVT with rates in the low 200s. Provider, resident, fellow, and pharmacist at bedside. 6 mg of IV Adenosine and 5 mg IV Metoprolol given. STAT electrolytes were collected, no remarkable findings and no lytes given. Patient's rhythm returned to NSR a couple minutes after medications were administered. MAPs remained >65. Patient was mentating at baseline and otherwise asymptomatic. Patient became a [employer] 1:1 @2300 due to increased agitation and restlessness. Patient was confused but redirectable throughout the night. Patient safety and hemodynamic stability maintained throughout shift. Electronically signed by: Yun Haywood R.N. 07/06/25 6:49 AM CDT * Latrell Royal R.N. - 07/05/2025 5:58 PM CDT Problem: SAFETY ADULT Goal: Maintain a safe environment Outcome: Progressing Shift Goals: Identify possible barriers to meeting goals/advancing plan of care: ICU levels of care End of Shift Summary: See below. Significant changes in patient condition: Patient was med/surg for most of the day. When does for esophagram and swallow study, pending official read for swallow safety. ~1640 patient was put on the pulse ox for vital signs and RN noticed pulse rate in the 200s. ECG monitoring was put on and patient was in SVT. Manager Meeting at bedside, pharmacist at bedside. Patient was given 6mg Adenosine IV push.Patient converted into NSR rates 90s -100s afterwards. Patient was then given IV infusion of 2g Magnesium Sulfate and 500 mL LR bolus. 12 lead ECG was done. No new blood work. Pain control during shift: Complains of no pain Family/social issues or concerns: No family here * Carlos Alberto Umaña R.R.Marleni - 07/05/2025 7:30 AM CDT Patient is a 79 y.o. female admitted on 07/04/2025 Chief Complaint: Chief Complaint Patient presents with Food Bolus Shift Summary: 07:30 Patient remains 5 LPM [place] nasal cannula at this time. Respiratory assessment completed, oxygen device checked, and no other respiratory interventions needed at this time. PLAN OF CARE: RT will continue to assess respiratory status while in the ICU, and provide respiratory care as needed. RT to provide supplemental oxygen to maintain adequate saturations, and manage oxygen devices per protocol. Oxygen Therapy: $Delivery Method: [place] nasal cannula Flow Rate (L/min): 3 L/min Principal Problem #1 Respiratory Failure (HCC) #2 Acute Respiratory Failure (HCC) Electronically signed by: Carlos Alberto Umaña R.R.T. 07/05/25 8:56 AM CDT * Kisha Carpenter R.R.T., L.R.T. - 07/05/2025 5:17 AM CDT Patient is a 79 y.o. female admitted on 07/04/2025 Principal Problem: Respiratory Failure (HCC) PMH:Medical History[1] Shift Summary: 2326- Patient arrived to unit on HFNC 100%/50 L. Pt was able to cough up a moderate amount of secretions spontaneously and was orally suctioned. She was on 100%/60 L up until intubation. She was intubated with a 7.5 ETT 23@T and bronch was preformed after to clear out lungs. Vent settings: CMV R 16, 400, +5, 40%. 0118- Pt extubated with service at bedside. She was initially placed on nasal cannula but was shortly after placed on 5 L Nasal Pendent for desaturations. 0300- Pt placed on 8 L Nasal Pendent. Due to frequent desaturations to low 80's. 0500- Pt seen on 6 L nasal cannula consistently saturating low to mid 90's. She was placed on back on 4L Nasal Pendent. Plan of Care: Continue to monitor respiratory status while in the ICU, maintain airway patency, and provide mechanical ventilation and RT to maintain, manage and wean ventilation and oxygenation per protocols and ABG values Oxygen Therapy: $Delivery Method: [place] nasal cannula FiO2 (%): 40 % Flow Rate (L/min): 4 L/min Recent ABG: No results for input(s): PO2 ART, PCO2 ART, PH ART, HCO3 ART, BASE EXC ART in the last 24hours. Kisha Carpenter R.R.T., L.R.T. 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 - 07/04/2025 10:46 PM CDT EMERGENCY MEDICINE CHIEF COMPLAINT Food Bolus INITIAL VITAL SIGNS Initial Vitals Temperature 07/05/25 0000 36.6 ??C Pulse Rate 07/04/25 2157 78 Heart Rate 07/04/25 2215 90 Resp Rate 07/04/25 2215 20 Blood Pressure 07/04/257 132/66 SpO2 07/04/252156 (!) 84 % Pain Score 07/04/25 2210 0 - No pain ASSESSMENT AND PLAN This is a 79 y.o. female past medical history of Alzheimer's, presenting with concern for food bolus. Patient was eating chicken meat without bones earlier today and felt some get stuck in her esophagus. She did not have any difficulty breathing but did have trouble swallowing saliva. She was unable to tolerate any p.o.. She was evaluated at [place] where her glucagon attempts were unsuccessful.She was transferred here. Here patient was initially saturating in the low 80s and was placed on facemask with improvement. She was coughing and appeared that she may have increased risk of aspiration. RT was called and suctioned significant secretions and the patient significantly improved afterwar ds. Lungs were clear to auscultation bilaterally. We attempted glucagon and soda without success. GI was consulted and stated that they would complete endoscopy for the patient. Given the increased risk for aspiration, the decision was made to admit the patient to the ICU and complete endoscopy there. Patient was admitted and signed out with plan coordinated to bring the patient up to the ICU, sedate and intubate in the ICU, and complete endoscopy to remove food bolus. Final Diagnoses: as of 07/05/2541 Respiratory Failure With Hypoxia (HCC) Food In Esophagus Causing Other Injury Initial Respiratory Failure (HCC) Zeke Kelly M.D. Resident 07/05/2541 * Vance Lopez M.D., M.H.A. - 07/04/2025 10:29 PM CDT SUBJECTIVE CHIEF COMPLAINT/REASON FOR VISIT Food Bolus HISTORY OF PRESENT ILLNESS This is an 79-year-old female answered from [place]. She was eating chicken and developed a food bolus and started spitting up her secretions. She was transferred here for further workup. EN route, patient developed worsening shortness of breath than oxygen requirements and has had increasing oxygen requirements to the point where she is now on high-flow nasal cannula. Patient has a history of dementia in his unable to provide history and therefore history is being provided by the patient's daughter. History provided by: Relative and medical records History limited by: Dementia REVIEW OF SYSTEMS OBJECTIVE Initial Vitals Temp -- Pulse Rate 07/04/252156 78 Heart Rate -- Resp -- Blood Pressure 07/04/252156 132/66 SpO2 07/04/252156 (!) 84 % Pain Score 07/04/252209 0 - No pain PHYSICAL EXAMINATION Constitutional: Nursing note and vitals reviewed. No distress. Patient is short of breath on high-flow nasal cannula. HENT: Head: Normocephalic. Mouth/Throat: Mucous membranes are moist. Eyes: Conjunctivae are normal. Neck: Neck supple. Pulmonary/Chest: Effort normal. No tachypnea. No respiratory distress. Musculoskeletal: General: No deformity. Normal range of motion. Cervical back: Neck supple. Neurological: Alert and oriented to person, place, and time. Skin: Skin is warm and dry. Psychiatric: Behavior is normal. ASSESSMENT/PLAN Assessment and Plan 79-year-old female transferred from [place] because of a food bolus who has subsequently been developing increasing oxygen requirements in his now on high- flow nasal cannula. I suspect that she has been aspirating since the food bolus. Patient will require EGD if conservative measures do not work.She will also require ICU admission given her increased oxygen requirements and requirement for high-flow nasal cannula.. ED Course as of 07/04/252240 Sun Jul 04, [id number] I spoke to the OD who recommended admitting the patient to the ICU and have her undergo theendoscopy in the ICU. Final Diagnoses: as of 07/04/252240 Respiratory Failure With Hypoxia (HCC) Food In Esophagus Causing Other Injury Initial Respiratory Failure (HCC) I have personally seen and examined this patient. I have fully participated in the care of this patient. I have reviewed all clinical information including history, physical exam, orders, and plan. Iagree with the note of the resident. Vance Lopez M.D., M.H.A. 07/04/252229 Vance Lopez M.D., M.H.A. 07/07/25 1632 documented in this encounter Miscellaneous Notes * Hospital Course - Mounika Briones M.D., M.S. - 07/05/2025 12:31 AM CDT Jazmin Lyn is a 79 y.o. female admitted to the [facility] Medicine 3 for food impaction. Past medical history notable for History of GI bleed, Anthony's ulcers (2019), LA grade D esophagitis (01/2025) GERD Hankins's esophagus with high grade dysplasia Hiatal hernia Alzheimer's dementia Anemia Alcohol use disorder (last drink 2019) Hx of left hip fracture s/p left hip hemiarthroplasty (2019) Hx of subdural hematoma (2018) Background: Mrs. Lyn was brought into the [place] ED by her daughter due to concerns for food bolus. Perreport she had difficulty swallowing her dinner (chicken) around 1600 the evening of presentation. She has history of one prior episode of food impaction that resolved at home without any medical intervention. At the time of initial presentation she was not ill appearing, managing oral secretions, and satting well on room air. The food bolus persisted IV glucagon x2, so she and her family were advised to present to [facility] ED for further evaluation and management. [facility] ED course: On arrival to [facility] ED her oxygen saturations were in the mid 80s which improved with application of facemask oxygen. There was concern for aspiration while in route to the ED due to a significant change in her respiratory status. RT suctioned at bedside with significant improvement in saturations, copious amount of secretions were noted. Her oxygen needs did continue to increase from nasal cannulainitially to facemask followed by non-rebreather at 15 L and high-flow nasal cannula at 80% FiO2, 60 L. Glucagon was again trialed without success. GI was consulted who recommended endoscopy for definitive management. She was transferred to the ICU due to concern for high risk for respiratory decompensation. Medical ICU Course (07/05-07/07): Mrs. Lyn was saturating well on HFNC on arrival to the ICU. She had diffuse rhonchi on pulmonary auscultation with associated cough. She was intubated prior to bedside EGD for airway protectionwith her high risk for aspiration. Bronchoscopy showed diffuse thin white secretions but no gross food particles. EGD was performed at bedside with removal of impacted chicken. Stenosis was noted at the GE junction and more proximally in the esophagus, the latter of which was biopsied. 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 No definitive Zenker's diverticulum was identified. GI verbally recommended outpatient GI follow up (locally or at [facility]) for consideration of dilation procedures. Following EGD, sedation was weaned and shortly after she was alert and able to follow commands. Shewas extubated to nasal cannula without issue. Lung sounds were significantly improved following bronchoscopy and extubation. 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 Initiated on diet--minced and moist solids, thin liquids, 1:1 nursing supervision with feeds--per DENTAL SCHEDULER recommendations. On 07/05, she was stable to transfer to the floor but then unfortunately went into asymptomatic SVTwith rates in low 200s twice overnight. Both times resolved with adenosine. She was additionally supported with IV magnesium, additional fluid boluses, and started on metoprolol tartrate 12.5 mg BID.Bed request changed to PCU status with tele monitoring. On 07/06, she had another episode of rates in 170s that seemed to quickly resolve with carotid massage. Again, patient was comfortable and no symptoms reported at that time. Metoprolol tartrate was increased to 25 mg BID. 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 Since she was monitored on telemetry and was asymptomatic--based on her age and overall other comorbid conditions, they recommended continuing hermedical therapy with beta blockade at this time and defer ablation for now. She should follow up with PCP/outpatient Cardiology for uptitration of medical therapy. Ablation or other medical therapy can be considered if she becomes symptomatic. No Holter monitor needed at this point in time. Patient's daughter Cathie informed of and agreeable with plan. 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 Bedside nursing impression was that she was mobilizing well and at baseline. PT also evaluated patient and agreed with nursing assessment. Given resolution of her admission problems and reassuring cardiology assessment, she was deemed safe for discharge home from ICU. No further inpatient cares needed. documented in this encounter Plan of Treatment Not on file documented as of this encounter Procedures Procedure Name Priority Date/Time Associated Diagnosis Comments GLUCOSE POCT, B Routine 07/07/2025 4:57 AM CDT RENAL FUNCTION PANEL, S Routine 07/07/2025 4:11 AM CDT CBC WITH DIFFERENTIAL, B Routine 07/07/2025 4:11 AM CDT ECG Routine 07/07/2025 2:05 AM CDT HEMOGLOBIN, B Timed 07/06/2025 2:28 PM CDT RENAL FUNCTION PANEL, S Routine 07/06/2025 6:33 AM CDT SPSMA RESULT Routine 07/06/2025 6:33 AM CDT CBC WITH DIFFERENTIAL, B Routine 07/06/2025 6:33 AM CDT MAGNESIUM, S Routine 07/06/2025 6:33 AM CDT GLUCOSE POCT, B Routine 07/06/2025 5:30 AM CDT PH BLOOD GAS STAT 07/05/2025 8:57 PM CDT RENAL FUNCTION PANEL, S STAT 07/05/2025 8:57 PM CDT MAGNESIUM, S STAT 07/05/2025 8:57 PM CDT CALCIUM, IONIZED, S/B STAT 07/05/2025 8:57 PM CDT ECG Semiurgent (Fast, most ED patients, some inpatients) 07/05/2025 5:06 PM CDT FL ESOPHAGRAM DOUBLE CONTRAST RAD - Routine (most inpatients and all outpatients) 07/05/2025 2:44 PM CDT FL SWALLOW FUNCTION WITH VIDEO AND SPEECH OR OT FOR RST RAD - Timed (for specific dates/times) 07/05/2025 2:44 PM CDT ECG Routine 07/05/2025 9:08 AM CDT RENAL FUNCTION PANEL, S Routine 07/05/2025 3:36 AM CDT CYSTATIN C WITH EGFR Routine 07/05/2025 3:36 AM CDT IRON AND TOT IRON-BINDING CAPACITY, S/P Routine 07/05/2025 3:36 AM CDT CBC WITH DIFFERENTIAL, B Routine 07/05/2025 3:36 AM CDT THYROID-STIMULATING HORMONE-SENSITIVE (S-TSH) Routine 07/05/2025 3:36 AM CDT FERRITIN, S Routine 07/05/2025 3:36 AM CDT T4 (THYROXINE), FREE, S Routine 07/05/2025 3:27 AM CDT SURGICAL PATHOLOGY Routine 07/05/2025 1: 19 AM CDT MO BRONCH DX W CELL WASH FLUOR Routine 07/05/2025 12:24 AM CDT Respiratory Failure (HCC) AIRWAY CARE Routine 07/05/2025 12:23 AM CDT LDA ANE ENDOTRACHEAL AIRWAY Routine 07/05/2025 12:19 AM CDT Respiratory Failure (HCC) UPPER GI ENDOSCOPY Routine 07/04/2025 11 :39 PM CDT EGD (ESOPHAGOGASTRODUOD ENOSCOPY) Routine 07/04/2025 11:39 PM CDT VBG & LYTES CG8+, POCT, B STAT 07/04/2025 11:03 PM CDT LACTATE, POCT, B STAT 07/04/2025 11:0 2 PM CDT PROTHROMBIN TIME (PT), P STAT 07/04/2025 11:01 PM CDT CBC WITH DIFFERENTIAL, B STAT 07/04/2025 11:01 PM CDT BASIC METABOLIC PANEL, S/P STAT 07/04/2025 11:01 PM CDT CRITICAL CARE Routine 07/04/2025 10:58 PM CDT DX CHEST PORTABLE 1 VIEW RAD - Semiurgent (Fast; most ED patients; some inpatients) 07/04/2025 10:15 PM CDT documented in this encounter Results * Glucose, POCT (07/07/2025 4:57 AM CDT) Glucose, POCT, B 117 70 - 140 mg/dL 07/07/2025 4:58 AM CDT PCLX Site Capillary 07/07/2025 4:58 AM CDT PCLX Last Intake > 4 hours 07/07/2025 4:58 AM CDT PCLX Blood 07/07/2025 4:57 AM CDT 07/07/2025 4:58 AM CDT us Unknown Provider LAB POCT ORDERABLES-MANUAL [place] Result POC [facility] [address] [place] [address], [facility] PCLX [facility] POC [address] [place] [address] * Renal Function Panel (07/07/2025 4:11 AM CDT) Pathologist [facility] Potassium, S 4.5 3.6 - 5.2 mmol/L 07/07/2025 5:23 AM CDT DTL Sodium, S 140 135 - 145 mmol/L 07/07/2025 5:23 AM CDT DTL Chloride, S 106 98 - 107 mmol/L 07/07/2025 5:23 AM CDT DTL Bicarbonate, S 22 22 - 29 mmol/L 07/07/2025 5:23 AM CDT DTL Anion Gap 12 7 - 15 07/07/2025 5:23 AM CDT DTL BUN (Blood Urea Nitrogen), S 14 6 - 21 mg/dL 07/07/2025 5:23 AM CDT DTL Creatinine 0.76 0.59 - 1.04 mg/dL 07/07/2025 5:23 AM CDT DTL Estimated GFR (eGFR) 79 >=60 mL/min/BSA 07/07/2025 5:23 AM CDT DTL Comment: Estimated GFR calculated using the 2020 CKD_EPI creatinine equation. Calcium, Total, S 8.9 8.8 - 10.2 mg/dL 07/07/2025 5:23 AM CDT DTL Glucose, S 113 70 - 140 mg/dL 07/07/2025 5:23 AM CDT DTL Albumin, S 3.7 3.5 - 5.0 g/dL 07/07/2025 5:23 AM CDT DTL Phosphorus (Inorganic), S 2.5 2.5 - 4.5 mg/dL 07/07/2025 5:23 AM CDT DTL Blood (Blood, Venous) 07/07/2025 4:11 AM CDT 07/07/2025 4:48 AM CDT us Ya Taveras M.D. LAB BLOOD ADD-ON Final Resul t [facility] [address] [place] [address], [facility] DTL [facility] [address] [place] [address] * (ABNORMAL) CBC with Differential, Blood (07/07/2025 4:11 AM CDT) Hemoglobin 12.7 11.6 - 15.0 g/dL 07/07/2025 4:59 AM CDT DTL Hematocrit 39.0 35.5 - 44.9 % 07/07/2025 4:59 AM CDT DTL Erythrocytes 4.33 3.92 - 5.13 x10(12)/L 07/07/2025 4:59 AM CDT DTL MCV 90.1 78.2 - 97.9 fL 07/07/2025 4:59 AM CDT DTL RBC Distrib Width 12.7 12.2 - 16.1 % 07/07/2025 4:59 AM CDT DTL Platelet Count 222 157 - 371 x10(9)/L 07/07/2025 4:59 AM CDT DTL Leukocytes 5.4 3.4 - 9.6 x10(9)/L 07/07/2025 4:59 AM CDT DTL Neutrophils 4.19 1.56 - 6.45 x10(9)/L 07/07/2025 4:59 AM CDT DHPM Lymphocytes 0.67(L) 0.95 - 3.07 x10(9)/L 07/07/2025 4:59 AM CDT DTL Monocytes 0.52 0.26 - 0.81 x10(9)/L 07/07/2025 4:59 AM CDT DTL Eosinophils <0.03 0.03 - 0.48 x10(9)/L 07/07/2025 4:59 AM CDT DTL Basophils <0.03 0.01 - 0.08 x10(9)/L 07/07/2025 4:59 AM CDT DTL Blood (Blood, Venous) 07/07/2025 4:11 AM CDT 07/07/2025 4:49 AM CDT Ya Taveras M.D. LAB BLOOD ADD-ON Final Resul t Performing Organization Address [facility] Co de Phone Number [facility] [address] [place] [address], [facility] DTL [facility] [address] [place] [address] [facility] [address] [place] [address] * ECG 12 Lead (07/07/2025 2:05 AM CDT) Pathologist [facility] Ventricular Rate ECG/Min 92 BPM MUSE MO Interval 136 ms MUSE QRSD Interval 78 ms MUSE QT Interval 364 ms MUSE QTC Interval 450 ms MUSE P [place] 45 degrees MUSE R [place] 0 degrees MUSE T Wave [place] 6 degrees MUSE 07/07/2025 2:05 AM CDT 07/07/2025 2:12 AM CDT Impressions MUSE - 07/07/2025 2:12 AM CDT Normal sinus rhythm Nonspecific ST abnormality When compared with ECG of 05-Jul-2025 17:06, No significant change was found Reviewed by ERYN Danielson Narrative Procedure Note Reynold Faustin M.D. - 07/07/2025 IMPRESSION: Normal sinus rhythm Nonspecific ST abnormality When compared with ECG of 05-Jul-2025 17:06, No significant change was found Reviewed by ERYN Danielson Ya Taveras M.D. ECG ORDERABLES Final Result Performing Organization Address [facility] Co de Phone Number MUSE NA * (ABNORMAL) Hemoglobin (07/06/2025 2:28 PM CDT) Hemoglobin 11.4(L) 11.6 - 15.0 g/dL 07/06/2025 2:37 PM CDT STMA Blood (Blood, Venous) 07/06/2025 2:28 PM CDT 07/06/2025 2:35 PM CDT us Mounika Briones M.D., M.S. LAB BLOOD ADD-ON Final Result Performing Organization Address City/[facility]/ZIP Co de Phone Number [facility] [address] [place], [place] [id number] [place] [address] STMA [facility] [address] [place] [address] * (ABNORMAL) Morphology Eval (special smear) (07/06/2025 6:33 AM CDT) Pathologist [facility] Neutrophilic Segs and Bands 83(H) 50 - 75 % 07/06/2025 8:49 AM CDT DHPM Lymphocytes 7(L) 18 - 42 % 07/06/2025 8:49 AM CDT DHPM Monocytes 10 2 - 11 % 07/06/2025 8:49 AM CDT DHPM Interpretation See Comment 8:49 AM CDT DHPM Comment:Peripheral blood sme ar reviewed: no diagnostic abnormalities are seen. Reviewed by: Tech 07/06/2025 8:49 AM CDT DHPM Blood (Blood, Venous) 07/06/2025 6:33 AM CDT 07/06/2025 7:53 AM CDT us Mounika Briones M.D., M.S. LAB BLOOD ADD-ON Final Result Performing Organization Address [facility]/ZIP Co de Phone Number [facility] [address] [place] [address], [facility] DHPM [facility] [address] [place] [address] * (ABNORMAL) Magnesium (07/06/2025 6:33 AM CDT) Magnesium, S 2.4(H) 1.7 - 2.3 mg/dL 07/06/2025 7:49 AM CDT DTL Blood (Blood, Venous) 07/06/2025 6:33 AM CDT 07/06/2025 7:11 AM CDT Mounika Briones M.D., M.S. LAB BLOOD ADD-ON Final Result [facility] [address] [place] [address], [facility] DTL [facility] [address] [place] [address] * (ABNORMAL) Renal Function Panel (07/06/2025 6:33 AM CDT) Potassium, S 4.3 3.6 - 5.2 mmol/L 07/06/2025 7:49 AM CDT DTL Sodium, S 141 135 - 145 mmol/L 07/06/2025 7:49 AM CDT DTL Chloride, S 109(H) 98 - 107 mmol/L 07/06/2025 7:49 AM CDT DTL Bicarbonate, S 24 22 - 29 mmol/L 07/06/2025 7:49 AM CDT DTL Anion Gap 8 7 - 15 07/06/2025 7:49 AM CDT DTL BUN (Blood Urea Nitrogen), S 19 6 - 21 mg/dL 07/06/2025 7:49 AM CDT DTL Creatinine 0.97 0.59 - 1.04 mg/dL 07/06/2025 7:49 AM CDT DTL Estimated GFR (eGFR) 59(L) >=60 mL/min/BSA 07/06/2025 7:49 AM CDT DTL Comment: Estimated GFR calculated using the 2020 CKD_EPI creatinine equation. Calcium, Total, S 8.2(L) 8.8 - 10.2 mg/dL 07/06/2025 7:49 AM CDT DTL Glucose, S 91 70 - 140 mg/dL 07/06/2025 7:49 AM CDT DTL Albumin, S 3.5 3.5 - 5.0 g/dL 07/06/2025 7:49 AM CDT DTL Phosphorus (Inorganic), S 2.5 2.5 - 4.5 mg/dL 07/06/2025 7:49 AM CDT DTL Blood (Blood, Venous) 07/06/2025 6:33 AM CDT 07/06/2025 7:11 AM CDT us Ya Taveras M.D. LAB BLOOD ADD-ON Final Resul t [facility] [address] [place] [address], [facility] DTL [facility] [address] [place] [address] * (ABNORMAL) CBC with Differential, Blood (07/06/2025 6:33 AM CDT) Hemoglobin 10.9(L) 11.6 - 15.0 g/dL 07/06/2025 7:22 AM CDT DTL Hematocrit 34.3(L) 35.5 - 44.9 % 07/06/2025 7:22 AM CDT DTL Erythrocytes 3.82(L) 3.92 - 5.13 x10(12)/L 07/06/2025 7:22 AM CDT DTL MCV 89.8 78.2 - 97.9 fL 07/06/2025 7:22 AM CDT DTL RBC Distrib Width 13.0 12.2 - 16.1 % 07/06/2025 7:22 AM CDT DTL Platelet Count 202 157 - 371 x10(9)/L 07/06/2025 7:22 AM CDT DTL Leukocytes 5.2 3.4 - 9.6 x10(9)/L 07/06/2025 7:22 AM CDT DTL Neutrophils 3.91 1.56 - 6.45 x10(9)/L 07/06/2025 7:21 AM CDT DHPM Lymphocytes 0.69(L) 0.95 - 3.07 x10(9)/L 07/06/2025 7:22 AM CDT DTL Monocytes 0.51 0.26 - 0.81 x10(9)/L 07/06/2025 7:22 AM CDT DTL Eosinophils <0.03 0.03 - 0.48 x10(9)/L 07/06/2025 7:22 AM CDT DTL Basophils 0.03 0.01 - 0.08 x10(9)/L 07/06/2025 7:22 AM CDT DTL Blood (Blood, Venous) 07/06/2025 6:33 AM CDT 07/06/2025 7:12 AM CDT us Ya Taveras M.D. LAB BLOOD ADD-ON Final Resul t [facility] [address] [place] [address], [facility] DTL [facility] [address] [place] [address] DHPM [facility] [address] [place] [address] * Glucose, POCT (07/06/2025 5:30 AM CDT) Glucose, POCT, B 93 70 - 140 mg/dL 07/06/2025 5:33 AM CDT PCLX Site Capillary 07/06/2025 5:33 AM CDT PCLX Last Intake > 4 hours 07/06/2025 5:33 AM CDT PCLX Blood 07/06/2025 5:30 AM CDT 07/06/2025 5:33 AM CDT us Unknown Provider LAB POCT ORDERABLES-MANUAL [place] Result POC [facility] [address] [place] [address], [facility] PCLX [facility] POC [address] [place] [address] * pH (07/05/2025 8:57 PM CDT) pH 7.43 7.35 - 7.45 pH 07/05/2025 9:05 PM CDT STMA Blood 07/05/2025 8:57 PM CDT 07/05/2025 9:03 PM CDT us Ya Taveras M.D. LAB HISTORICAL ORDERS Final Result Performing Organization Address City/[facility]/ZIP Co de Phone Number [facility] [address] [place] [address] * Calcium, Ionized (07/05/2025 8:57 PM CDT) [facility] Calcium, Ionized, B 4.66 4.65 - 5.30 mg/dL 07/05/2025 9:07 PM CDT [facility] Blood (Blood, Venous) 07/05/2025 8:57 PM CDT 07/05/2025 9:03 PM CDT Ya Taveras M.D. LAB BLOOD NON ADD-ON Final R esult Performing Organization Address City/[facility]/ZIP Co de Phone Number [facility] [address] [place] [address] * (ABNORMAL) Magnesium (07/05/2025 8:57 PM CDT) [facility] Magnesium, P 2.8(H) 1.7 - 2.3 mg/dL 07/05/2025 9:14 PM CDT [facility] Blood (Blood, Venous) 07/05/2025 8:57 PM CDT 07/05/2025 9:03 PM CDT Ya Taveras M.D. LAB BLOOD ADD-ON Final Resul t Performing Organization Address City/[facility]/ZIP Co de Phone Number [facility] [address] [place] [address] * (ABNORMAL) Renal Function Panel (07/05/2025 8:57 PM CDT) [facility] Potassium, S 4.4 3.6 - 5.2 mmol/L 07/05/2025 9:44 PM CDT DTL Sodium, S 140 135 - 145 mmol/L 07/05/2025 9:44 PM CDT DTL Chloride, S 107 98 - 107 mmol/L 07/05/2025 9:44 PM CDT DTL Bicarbonate, S 20(L) 22 - 29 mmol/L 07/05/2025 9:44 PM CDT DTL Anion Gap 13 7 - 15 07/05/2025 9:44 PM CDT DTL BUN (Blood Urea Nitrogen), S 21 6 - 21 mg/dL 07/05/2025 9:44 PM CDT DTL Creatinine 0.92 0.59 - 1.04 mg/dL 07/05/2025 9:44 PM CDT DTL Estimated GFR (eGFR) 63 >=60 mL/min/BSA 07/05/2025 9:44 PM CDT DTL Comment: Estimated GFR calculated using the 2020 CKD_EPI creatinine equation. Calcium, Total, S 8.7(L) 8.8 - 10.2 mg/dL 07/05/2025 9:44 PM CDT DTL Glucose, S 120 70 - 140 mg/dL 07/05/2025 9:44 PM CDT DTL Albumin, S 3.8 3.5 - 5.0 g/dL 07/05/2025 9:44 PM CDT DTL Phosphorus (Inorganic), S 2.8 2.5 - 4.5 mg/dL 07/05/2025 9:44 PM CDT DTL Blood (Blood, Venous) 07/05/2025 8:57 PM CDT 07/05/2025 9:11 PM CDT us Ya Taveras M.D. LAB BLOOD ADD-ON Final Resul t [facility] [address] [place] [address], [facility] DTFormerly [facility] [address] [place] [address] * ECG 12 Lead (07/05/2025 5:06 PM CDT) Ventricular Rate ECG/Min 100 BPM MUSE MO Interval 132 ms MUSE QRSD Interval 88 ms MUSE QT Interval 356 ms MUSE QTC Interval 459 ms MUSE P [place] 54 degrees MUSE R [place] -11 degrees MUSE T Wave [place] 48 degrees MUSE 07/05/2025 5:06 PM CDT 07/05/2025 5:11 PM CDT Impressions MUSE - 07/05/2025 5:11 PM CDT Normal sinus rhythm Nonspecific ST abnormality When compared with ECG of 05-Jul-2025 09:08, MO interval has increased Premature atrial complexes are no longer present Reviewed by ERYN Fox Narrative Procedure Note Mike Correa Jr., M.D. - 07/05/2025 IMPRESSION: Normal sinus rhythm Nonspecific ST abnormality When compared with ECG of 05-Jul-2025 09:08, MO interval has increased Premature atrial complexes are no longer present Reviewed by ERYN Fox us Mounika Briones M.D., M.S. ECG ORDERABLES Final R esult MUSE NA * FL Esophagram Double Contrast (07/05/2025 2:44 PM CDT) Anatomical Region Laterality Modality Gastro Intestinal, Abdominal RST LOS, Abdominal ARZ LOS, Abdominal FLA LOS Digital Radiography Impressions 07/05/2025 3:00 PM CDT 1. No aspiration. 2. 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 3. Moderate hiatal hernia. Narrative 07/05/2025 3:00 PM CDT EXAM: FL SWALLOW FUNCTION WITH VIDEO AND SPEECH OR OT FOR RST, FL ESOPHAGRAM DOUBLE CONTRAST COMPARISON: 07/04/2025 radiograph and 01/22/2025 CT, and beyond FINDINGS: Initially, a fluoroscopic video swallow performed with thin, mildly thick, puree, and cookie consistencies of barium. No significant laryngeal penetration or aspiration was observed. Please see speech pathology report for further details and recommendations. Subsequently, a limited double contrast esophagram was performed. Images were performed in the bilateral oblique positions for most optimal positioning while bouncing patient safety. Overall, 2 areas short segment esophageal narrowing was observed: * Approximate 0.7 cm upper intrathoracic esophagus (series 14 frame 102) * Approximate 1 cm distal intrathoracic esophagus just upstream from the moderate hiatal hernia (series 16 frame 2). The esophagus just upstream from this narrowing was mildly dilates transiently as barium boluses passed through with intermittent episodes of flow impedance but without obstruction. Ya Taveras M.D. [facility] FLUOROSCOPY PROCEDURES F inal Result * FL Swallow Function with Video and Speech or OT (07/05/2025 2:44 PM CDT) Anatomical Region Laterality Modality Gastro Intestinal, Abdominal RST LOS, Abdominal ARZ LOS, Abdominal FLA LOS N/A Other Impressions 07/06/2025 7:25 AM CDT 1. No aspiration. 2. 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 3. Moderate hiatal hernia. Narrative 07/06/2025 7:25 AM CDT EXAM: FL SWALLOW FUNCTION WITH VIDEO AND SPEECH OR OT FOR RST, FL ESOPHAGRAM DOUBLE CONTRAST COMPARISON: 07/04/2025 radiograph and 01/22/2025 CT, and beyond FINDINGS: Initially, a fluoroscopic video swallow performed with thin, mildly thick, puree, and cookie consistencies of barium. No significant laryngeal penetration or aspiration was observed. Please see speech pathology report for further details and recommendations. Subsequently, a limited double contrast esophagram was performed. Images were performed in the bilateral oblique positions for most optimal positioning while bouncing patient safety. Overall, 2 areas short segment esophageal narrowing was observed: * Approximate 0.7 cm upper intrathoracic esophagus (series 14 frame 102) * Approximate 1 cm distal intrathoracic esophagus just upstream from the moderate hiatal hernia (series 16 frame 2). The esophagus just upstream from this narrowing was mildly dilates transiently as barium boluses passed through with intermittent episodes of flow impedance but without obstruction. us Ya Taveras M.D. [facility] FLUOROSCOPY PROCEDURES F inal Result * ECG 12 Lead (07/05/2025 9:08 AM CDT) Ventricular Rate ECG/Min 86 BPM MUSE MO Interval 116 ms MUSE QRSD Interval 86 ms MUSE QT Interval 398 ms MUSE QTC Interval 476 ms MUSE P [place] -12 degrees MUSE R [place] -26 degrees MUSE T Wave [place] 34 degrees MUSE 07/05/2025 9:08 AM CDT 07/05/2025 9:29 AM CDT Impressions MUSE - 07/05/2025 9:28 AM CDT Sinus rhythm with short MO Premature atrial complexes Nonspecific T wave abnormality When compared with ECG of 22-Jan-2025 10:00, MO interval has decreased Reviewed by ERYN Gill Narrative Procedure Note Mikael Vargas M.D. - 07/05/2025 IMPRESSION: Sinus rhythm with short MO Premature atrial complexes Nonspecific T wave abnormality When compared with ECG of 22-Jan-2025 10:00, MO interval has decreased Reviewed by ERYN Gill us Ya Taveras M.D. ECG ORDERABLES Edited Resul t - Final MUSE NA * (ABNORMAL) S-TSH (Thyroid-Stimulating Hormone - Sensitive) (07/05/2025 3:36 AM CDT) Pathologist [facility] TSH, Sensitive 5.6(H) 0.3 - 4.2 mIU/L 07/05/2025 5:22 AM CDT DTL Blood (Blood, Venous) 07/05/2025 3:36 AM CDT 07/05/2025 4:32 AM CDT Ya Taveras M.D. LAB BLOOD ADD-ON Final Resul t [facility] [address] [place] [address], [place] DTL [facility] [address] [place] [address] * Ferritin (07/05/2025 3:36 AM CDT) Ferritin, S 93 11 - 328 mcg/L 07/05/2025 5:22 AM CDT DTL Blood (Blood, Venous) 07/05/2025 3:36 AM CDT 07/05/2025 4:32 AM CDT us Ya Taveras M.D. LAB BLOOD ADD-ON Final Resul t Performing Organization Address City/[facility] Co de Phone Number [facility] [address] [place] [address], [facility] DTFormerly [facility] [address] [place] [address] * (ABNORMAL) Iron and Total Iron-Binding Capacity (07/05/2025 3:36 AM CDT) Iron 21(L) 35 - 145 mcg/dL 07/05/2025 5:22 AM CDT DTL Total Iron Binding Capacity 267 250 - 400 mcg/dL 07/05/2025 5:22 AM CDT DTL Percent Saturation 8(L) 14 - 50 % 07/05/2025 5:22 AM CDT DTL Blood (Blood, Venous) 07/05/2025 3:36 AM CDT 07/05/2025 4:32 AM CDT us Ya Taveras M.D. LAB BLOOD ADD-ON Final Resul t Performing Organization Address [facility] Co de Phone Number [facility] [address] [place] [address], [facility] DTFormerly [facility] [address] [place] [address] * (ABNORMAL) Renal Function Panel (07/05/2025 3:36 AM CDT) Potassium, S 4.3 3.6 - 5.2 mmol/L 07/05/2025 5:22 AM CDT DTL Sodium, S 139 135 - 145 mmol/L 07/05/2025 5:22 AM CDT DTL Chloride, S 103 98 - 107 mmol/L 07/05/2025 5:22 AM CDT DTL Bicarbonate, S 20(L) 22 - 29 mmol/L 07/05/2025 5:22 AM CDT DTL Anion Gap 16(H) 7 - 15 07/05/2025 5:22 AM CDT DTL BUN (Blood Urea Nitrogen), S 23(H) 6 - 21 mg/dL 07/05/2025 5:22 AM CDT DTL Creatinine 0.88 0.59 - 1.04 mg/dL 07/05/2025 5:22 AM CDT DTL Estimated GFR (eGFR) 66 >=60 mL/min/BSA 07/05/2025 5:22 AM CDT DTL Comment: Estimated GFR calculated using the 2020 CKD_EPI creatinine equation. Calcium, Total, S 8.9 8.8 - 10.2 mg/dL 07/05/2025 5:22 AM CDT DTL Glucose, S 135 70 - 140 mg/dL 07/05/2025 5:22 AM CDT DTL Albumin, S 4.0 3.5 - 5.0 g/dL 07/05/2025 5:22 AM CDT DTL Phosphorus (Inorganic), S 3.3 2.5 - 4.5 mg/dL 07/05/2025 5:22 AM CDT DTL Blood (Blood, Venous) 07/05/2025 3:36 AM CDT 07/05/2025 4:32 AM CDT us Ya Taveras M.D. LAB BLOOD ADD-ON Final Resul t [facility] [address] [place] [address], [facility] DTFormerly [facility] [address] [place] [address] * (ABNORMAL) CBC with Differential, Blood (07/05/2025 3:36 AM CDT) Hemoglobin 14.0 11.6 - 15.0 g/dL 07/05/2025 4:44 AM CDT DTL Hematocrit 44.2 35.5 - 44.9 % 07/05/2025 4:44 AM CDT DTL Erythrocytes 4.93 3.92 - 5.13 x10(12)/L 07/05/2025 4:44 AM CDT DTL MCV 89.7 78.2 - 97.9 fL 07/05/2025 4:44 AM CDT DTL RBC Distrib Width 12.9 12.2 - 16.1 % 07/05/2025 4:44 AM CDT DTL Platelet Count 218 157 - 371 x10(9)/L 07/05/2025 4:44 AM CDT DTL Leukocytes 4.0 3.4 - 9.6 x10(9)/L 07/05/2025 4:44 AM CDT DTL Neutrophils 3.42 1.56 - 6.45 x10(9)/L 07/05/2025 4:44 AM CDT [facility] Lymphocytes 0.17(L) 0.95 - 3.07 x10(9)/L 07/05/2025 4:44 AM CDT DTL Monocytes 0.38 0.26 - 0.81 x10(9)/L 07/05/2025 4:44 AM CDT DTL Eosinophils <0.03 0.03 - 0.48 x10(9)/L 07/05/2025 4:44 AM CDT DTL Basophils <0.03 0.01 - 0.08 x10(9)/L 07/05/2025 4:44 AM CDT DTL Blood (Blood, Venous) 07/05/2025 3:36 AM CDT 07/05/2025 4:33 AM CDT Ya Taveras M.D. LAB BLOOD ADD-ON Final Resul t [facility] [address] [place] [address], [place] DTL [facility] [address] [place] [address] [facility] [address] [place] [address] * Cystatin C with Estimated GFR (07/05/2025 3:36 AM CDT) eGFR by Cystatin C 65 >60 mL/min/BSA 07/05/2025 5:22 AM CDT DTL Comment: Estimated GFR calculated using the CKD-EPI Cystatin C (2012) equation. ----ADDITIONAL INFORMATION---- Cystatin C-based eGFR may differ substantially from creatinine- based eGFR in patients with abnormal muscle mass or acutely changing renal function. Please interpret together with relevant clinical features. On 02/16/2021 the cystatin C assay method changed. Cystatin C eGFR results > 50 ml/min/1.73m2 are approximately 10% lower with the new assay. Cystatin C 1.02 0.67 - 1.21 mg/L 07/05/2025 5:22 AM CDT DTL Blood (Blood, Venous) 07/05/2025 3:36 AM CDT 07/05/2025 4:32 AM CDT Ya Taveras M.D. LAB BLOOD [place] [address] * T4 (Thyroxine), Free (07/05/2025 3:27 AM CDT) T4 (Thyroxine), Free, S 1.3 0.9 - 1.7 ng/dL 07/05/2025 6:14 AM CDT DTL Blood (Blood, Venous) 07/05/2025 3:27 AM CDT 07/05/2025 5:40 AM CDT Ya Taveras M.D. LAB BLOOD [place] [address] * Surgical Pathology (07/05/2025 1:19 AM CDT) 07/06/2025 2:14 PM CDT DTL Participated in the Interpretation Wilmer Parul, M.D.-Patholog y Fellow 07/06/2025 2:14 PM CDT DTL Report electronically signed by Lucia Mancia M.D. I verify that I have examined all relevant slides/materi als for the specimen(s) and rendered or confirmed the diagnosis. 07/06/2025 2:14 PM CDT DTL Gross Description Received in formalin labeled with the patient's name, medical record number, and esophagus, 17 cm are two pale edmondson-transluce ntirregular soft tissues, measuring 0.6 x 0.3 x 0.1 cm and 0.2 x 0.1 x 0.1 cm. Specimens are submitted en toto in cassette A1. Grossed byOER. 07/06/2025 2:14 PM CDT DTL Interpretation FINAL DIAGNOSIS A. Esophagus, 17cm, endoscopic biopsy: Squamous esophageal mucosa without diagnostic abnormality. No dysplasia. See comment. Digital imaging was used in the diagnostic assessment of this case. 07/06/2025 2:14 PM CDT DTL Biopsy (Esophagus) 07/05/2025 1:19 AM CDT Tera Jamil M.D. LAB SURG PATH ORDERABLES Fi nal Result Performing Organization Address [facility]/State/[facility] Co de Phone Number [facility] [address] [place] [address], [facility] DTL [address] [facility] [address] [place] [address] * MO BRONCH DX W CELL WASH FLUOR (07/05/2025 12:24 AM CDT) Narrative Jefferson Carrino M.D. - 07/05/2025 12:24 AM CDT Jefferson Carrion M.D. 07/06/2025 12:09 AM Bronchoscopy (Adult) Performed by: Lucia Hobbs M.D., M.B.A. Authorized by: Lucia Hobbs M.D., M.B.A. Care team members present 1. Jefferson Carrion M.D. 3. Abuhadid, Nujude A, R.N. PROCEDURE DETAILS Route: endotracheal tube BAL (bronchoalveolar lavage): no Brushing: no Biopsy: no Removal foreign body: no Other procedures performed: no Procedure details A procedural pause was completed verifying correct patient, procedure, site, positioning, and special equipment if applicable. A flexible fiberoptic bronchoscope was then introduced through the endotracheal tube. A full airway examination was performed. Entire airway inspected. Airway mucosa was very friable. Thin white secretions appreciated in the entire airway which were suctioned out. Airway left patent after the procedure. The bronchoscope was then withdrawn and the procedure terminated. CONSENT Consent obtained: verbal Consent given by: healthcare agent The benefits, risks and alternatives to the procedure and the potential need for sedation or anesthesia as well as the names, roles, and responsibilities of healthcare team members performing significant interventional tasks were discussed with the patient and/or decision maker. UNIVERSAL PROTOCOL All relevant documentation and testing were reviewed and available. All required blood products, implants, devices and or special equipment were made available as applicable. Pre-procedure verification was conducted and the correct site was marked if required. A fire risk and smoke assessment were done as applicable. The procedural time-out to verify correct patient, correct side/site, and procedure was conducted prior to performing the procedure and confirmed in a procedural pause. PRE-PROCEDURE DETAILS Procedure purpose: diagnostic Indications: airway inspection Airborne infection precaution assessment made: yes SEDATION / ANESTHESIA Anesthesia method: already under sedation POST-PROCEDURE DETAILS Procedure successful: yes Complications: no apparent complications Lucia Mujica, M.B.A. PROCEDURE/MINOR SURGICAL ORDERABLES Final Result * LDA ANE ENDOTRACHEAL AIRWAY (07/05/2025 12:19 AM CDT) Narrative Jefferson Carrion M.D. - 07/05/2025 12:19 AM CDT Jefferson Carrion M.D. 07/06/2025 12:09 AM Intubation Performed by: Lucia Hobbs M.D., M.B.A. Authorized by: Lucia Hobbs M.D., M.B.AOsman Care team members present 1. Jefferson Carrion M.D. 3. Brooklyn Du ROsmanNOsman Patient location during procedure: ICU / PCU PROCEDURE DETAILS: Mask difficulty assessment: easy mask Final airway type: video laryngoscope Laryngeal Manipulation: no Final best view of glottic structures - Cormack/Lehane Score: grade 1 ETT location: oral VL device: glide scope Lecompte scope blade size: 3 Tube size: 7.5 ETT distance at teeth/gum: 24 Oral tube type: standard ETT Cuffed: yes Airway confirmation: bilateral breath sounds and positive ETCO2 Other previous techniques attempted: none CONSENT Consent obtained: verbal Consent given by: healthcare agent The benefits, risks and alternatives to the procedure and the potential need for sedation or anesthesia as well as the names, roles, and responsibilities of healthcare team members performing significant interventional tasks were discussed with the patient and/or decision maker. UNIVERSAL PROTOCOL All relevant documentation and testing were reviewed and available. All required blood products, implants, devices and or special equipment were made available as applicable. Pre-procedure verification was conducted and the correct site was marked if required. A fire risk and smoke assessment were done as applicable. The procedural time-out to verify correct patient, correct side/site, and procedure was conducted prior to performing the procedure and confirmed in a procedural pause. PRE PROCEDURE DETAILS: Pre evaluation for airway management: airway protection Urgency: elective Preop assessment of probable difficulty: no difficulty anticipated Preoxygenation: HFNC and bag valve mask SEDATION / ANESTHESIA Anesthesia method: deep sedation POST PROCEDURE DETAILS: Procedure outcome: successful Notable Events: no complications Lucia Hobbs M.D., M.B.A. ANESTHESI A ORDERABLES Final Result * Upper GI Endoscopy (07/04/2025 11:39 PM CDT) Anatomical Region Laterality Modality Other 07/04/2025 11:3 9 PM CDT Impressions 07/05/2025 4:13 PM CDT Post-op Diagnoses: - Food in the proximal esophagus. Removal was successful. - Esophageal stenoses. 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 Biopsied. - Large hiatal hernia. - Gastroesophageal flap valve classified as Hill Grade IV (no fold, wide open lumen, hiatal hernia present). - Normal stomach. - Normal examined duodenum. Narrative 07/05/2025 4:13 PM CDT Zackary 6 GI GI Patient Name: Jazmin Lyn Date of : 1945 Age: 79 Procedure Date: 07/04/2025 Procedure: Upper GI endoscopy Providers: Mikey Jamil MD, Shiva Santana (Fellow) Referring Provider: Zeke Kelly Comorbidities: Hypothyroidism, Dementia Pre-op Diagnoses: Foreign body in the esophagus Recommendation: - Return patient to ICU for ongoing care. - Use a proton pump inhibitor IV BID until cleared for solids by DENTAL SCHEDULER. - Await pathology results. - Clear liquid diet today. - Consult DENTAL SCHEDULER for VFSS and double contrast esophagram (with tablet) to evaluate for swallowing issues and identify residual strictures. Findings: Food was found in the proximal esophagus. Removal was accomplished with an OTSG Xcavator forceps. Two instrinsic (indeterminate for malignancy) moderate (circumferential scarring or stenosis; an endoscope may pass) stenoses were found 17 cm and 28 cm from the incisors. The narrowest stenosis measured less than one cm (in length). The stenoses were traversed after dilation with the Xcavator forceps. There were esophageal mucosal changes suspicious for long-segment Hankins's esophagus present in the entire esophagus. The maximum longitudinal extent of these mucosal changes was 10 cm in length (17 cm to 28 cm). Mucosa was biopsied with a cold forceps for histology. One specimen bottle was sent to pathology. A large hiatal hernia was present from 28 cm to 42 cm. The gastroesophageal flap valve was visualized endoscopically and classified as Hill Grade IV (no fold, wide open lumen, hiatal hernia present). The entire examined stomach was normal. The examined duodenum was normal. Procedural Details: The patient was seen, evaluated, history reviewed, airway and heart-lung exams were performed by licensed provider and were satisfactory for planned level of sedation care. The risks, benefits and alternatives for the procedure and sedation were discussed and informed consent was obtained. A procedural pause was conducted in the presence of assisting personnel to verify the correct patient identity and procedure to be performed. Throughout the procedure, the patient's blood pressure, pulse, and oxygen saturations were monitored continuously. The Gastroscope was introduced under direct vision through the mouth, and advanced to the second part of duodenum. The upper GI endoscopy was accomplished without difficulty. The patient tolerated the procedure well. Estimated Blood Loss: Estimated blood loss: none. Complications: No immediate complications. Sedation: General anesthesia per ICU. Attending Participation: I was present and participated during the entire procedure from insertion to removal of the endoscope. Mikey Jamil MD 07/05/2025 4:12:50 PM This report has been signed electronically. Number of Addenda: 0 Zeke Kelly M.D. GI PROCEDURE ORDERABLES Final Result * (ABNORMAL) Venous Blood Gas and Electrolytes CG8+, POCT (07/04/2025 11:03 PM CDT) Sample Site, POCT Venstick 07/04/2025 11:12 PM CDT PCSM Comment: ----ADDITIONAL INFORMATION---- Performed at the Point of Care pH, Venous, POCT, B 7.29(L) 7.32 - 7.43 07/04/2025 11:12 PM CDT PCSM Comment: ----ADDITIONAL INFORMATION---- Performed at the Point of Care pCO2, Venous, POCT, B 47 41 - 51 mm Hg 07/04/2025 11:12 PM CDT PCSM Comment: ----ADDITIONAL INFORMATION---- Performed at the Point of Care pO2, Venous, POCT, B <18 Not Applicable mm Hg 07/04/2025 11:12 PM CDT PCSM Comment: ----ADDITIONAL INFORMATION---- Performed at the Point of Care Base Excess, Venous, POCT, B -4 Not Applicable mmol/L 07/04/2025 11:12 PM CDT PCSM Comment: ----ADDITIONAL INFORMATION---- Performed at the Point of Care HCO3, Venous, POCT, B 23 Not Applicable mmol/L 07/04/2025 11:12 PM CDT PCSM Comment: ----ADDITIONAL INFORMATION---- Performed at the Point of Care Sodium, POCT, B 138 135 - 145 mmol/L 07/04/2025 11:12 PM CDT PCSM Comment: ----ADDITIONAL INFORMATION---- Performed at the Point of Care Potassium, POCT, B 3.9 3.6 - 5.2 mmol/L 07/04/2025 11:12 PM CDT PCSM Comment: ----ADDITIONAL INFORMATION---- Performed at the Point of Care Calcium, Ionized, POCT, B 4.70 4.65 - 5.30 mg/dL 07/04/2025 11:12 PM CDT PCSM Comment: ----ADDITIONAL INFORMATION---- Performed at the Point of Care Glucose, POCT, B 212(H) 70 - 140 mg/dL 07/04/2025 11:12 PM CDT PCSM Comment: ----ADDITIONAL INFORMATION---- Performed at the Point of Care Hematocrit, POCT, B 43.0 35.5 - 44.9 % 07/04/2025 11:12 PM CDT PCSM Comment: ----ADDITIONAL INFORMATION---- Performed at the Point of Care Blood (Blood, Venous) 07/04/2025 11:03 PM CDT 07/04/2025 11:03 PM CDT us Zeke Kelly M.D. LAB POCT ORDERABLES - DEVICE Final Result Performing Organization Address [facility]/ZIP Co de Phone Number POC RST [facility] [address] [place] [address], [facility] PCSM [facility] POC [address] [place] [address] * Lactate, POCT (07/04/2025 11:02 PM CDT) Pathologist [facility] Lactate, POCT 1.99 0.50 - 2.20 mmol/L 07/04/2025 11:12 PM CDT PCLX Blood (Blood, Venous) 07/04/2025 11:02 PM CDT 07/04/2025 11:02 PM CDT us Zeke Kelly M.D. LAB POCT ORDERABLES - DEVICE Final Result Performing Organization Address [facility]/ZIP Co de Phone Number POC [facility] [address] [place] [address], [facility] PCLX [facility] POC [address] [place] [address] * Prothrombin Time (PT) (07/04/2025 11:01 PM CDT) Prothrombin Time, P 11.7 9.4 - 12.5 sec 07/04/2025 11:16 PM CDT [facility] INR 1.1 0.9 - 1.1 07/04/2025 11:16 PM CDT STMA Comment: ----ADDITIONAL INFORMATION---- Standard intensity warfarin therapeutic range: 2.0 to 3.0 High intensity warfarin therapeutic range: 2.5 to 3.5 Blood (Blood, Venous) 07/04/2025 11:01 PM CDT 07/04/2025 11:10 PM CDT us Zeke Kelly M.D. LAB BLOOD ADD-ON Final Result [facility] [address] [place] [address], [facility] STMA [facility] [address] [place] [address] * (ABNORMAL) Basic Metabolic Panel (07/04/2025 11:01 PM CDT) Potassium, P 4.0 3.6 - 5.2 mmol/L 07/04/2025 11:34 PM CDT ST[facility] Sodium, P 136 135 - 145 mmol/L 07/04/2025 11:34 PM CDT ST[facility] Chloride, P 101 98 - 107 mmol/L 07/04/2025 11:34 PM CDT ST[facility] Bicarbonate, P 20(L) 22 - 29 mmol/L 07/04/2025 11:34 PM CDT ST[facility] Anion Gap, P 15 7 - 15 07/04/2025 11:34 PM CDT [facility] BUN (Blood Urea Nitrogen), P 26(H) 6 - 21 mg/dL 07/04/2025 11:34 PM CDT [facility] Creatinine 0.82 0.59 - 1.04 mg/dL 07/04/2025 11:34 PM CDT [facility] Estimated GFR (eGFR) 72 >=60 mL/min/BSA 07/04/2025 11:34 PM CDT STMA Comment: Estimated GFR calculated using the 2020 CKD_EPI creatinine equation. Calcium, Total, P 8.6(L) 8.8 - 10.2 mg/dL 07/04/2025 11:34 PM CDT ST[facility] Glucose, P 223(H) 70 - 140 mg/dL 07/04/2025 11:34 PM CDT ST[facility] Blood (Blood, Venous) 07/04/2025 11:01 PM CDT 07/04/2025 11:10 PM CDT Zeke Kelly M.D. LAB BLOOD ADD-ON Final Result [facility] [address] [place] [address], [facility] STMA [facility] [address] [place] [address] * (ABNORMAL) CBC with Differential, Blood (07/04/2025 11:01 PM CDT) Pathologist [facility] Hemoglobin 13.9 11.6 - 15.0 g/dL 07/04/2025 11:14 PM CDT STMA Hematocrit 43.9 35.5 - 44.9 % 07/04/2025 11:14 PM CDT ST[facility] Erythrocytes 4.83 3.92 - 5.13 x10(12)/L 07/04/2025 11:14 PM CDT ST[facility] MCV 90.9 78.2 - 97.9 fL 07/04/2025 11:14 PM CDT ST[facility] RBC Distrib Width 12.6 12.2 - 16.1 % 07/04/2025 11:14 PM CDT ST[facility] Platelet Count 274 157 - 371 x10(9)/L 07/04/2025 11:14 PM CDT [facility] Leukocytes 5.7 3.4 - 9.6 x10(9)/L 07/04/2025 11:14 PM CDT ST[facility] Neutrophils 4.98 1.56 - 6.45 x10(9)/L 07/04/2025 11:14 PM CDT DH[facility] Lymphocytes 0.28(L) 0.95 - 3.07 x10(9)/L 07/04/2025 11:14 PM CDT ST[facility] Monocytes 0.38 0.26 - 0.81 x10(9)/L 07/04/2025 11:14 PM CDT [facility] Eosinophils <0.03 0.03 - 0.48 x10(9)/L 07/04/2025 11:14 PM CDT ST[facility] Basophils <0.03 0.01 - 0.08 x10(9)/L 07/04/2025 11:14 PM CDT STMA Blood (Blood, Venous) 07/04/2025 11:01 PM CDT 07/04/2025 11:10 PM CDT Zeke Kelly M.D. LAB BLOOD ADD-ON Final Result [facility] [address] [place] [address], [facility] STMA [facility] [address] [place] [address] DHPM [facility] [address] [place] [address] * Critical Care (07/04/2025 10:58 PM CDT) Narrative Vance Lopez M.D., M.H.A. - 07/04/2025 10:58 PM CDT Vance Lopez M.D., M.H.A. 07/04/2025 10:59 PM Critical Care Performed by: Vance Lopez M.D., M.H.A. Authorized by: Vance Lopez M.D., M.H.A. Critical care provider statement: Critical care total time (minutes): 35 Critical care time was exclusive of: separately billable procedures and treating other patients and teaching time CPR was performed on this patient: no Critical care was necessary to treat or prevent imminent or life-threatening deterioration of the following conditions: respiratory failure Critical care was time spent personally by me on the following activities: development of treatment plan with patient or surrogate, discussions with consultants, evaluation of patient's response to treatment, examination of patient, obtaining history from patient or surrogate, ordering and performing treatments and interventions, ordering and review of laboratory studies, ordering and review of radiographic studies, pulse oximetry, re-evaluation of patient's condition, review of old charts, interpretation of cardiac output measurements, documenting in the patient chart, discussions with primary provider and ventilator management I assumed direction of critical care for this patient from another provider in my specialty: no Vance Lopez M.D., M.H.A. PROCEDURE/MINOR SURGI FANY ORDERABLES Final Result * DX Chest Portable 1 View (07/04/2025 10:15 PM CDT) Anatomical Region Laterality Modality Chest, Thoracic RST LOS, Tho racic ARZ LOS, Thoracic FLA LOS N/A Digital Radiography Impressions 07/05/2025 9:35 AM CDT Since 01/22/2025, there has been near complete interval resolution of the patchy airspace opacities in the left lower lung with subtle residual opacities at the base. New faint airspace opacities in the right lower lung could represent new infection. Remainder unchanged. Hyperinflation. No pneumothorax. Normal cardiac silhouette. Calcific granuloma left lower lobe. Vascular calcifications. Demineralization. Narrative 07/05/2025 9:35 AM CDT EXAM: DX CHEST PORTABLE 1 VIEW Procedure Note Raysa Sim M.D. - 07/05/2025 EXAM: DX CHEST PORTABLE 1 VIEW IMPRESSION: Since 01/22/2025, there has been near complete interval resolution of thepatchy airspace opacities in the left lower lung with subtle residualopacities at the base. New faint airspace opacities in the right lowerlung could represent new infection. Remainder unchanged. Hyperinflation. No pneumothorax. Normal cardiacsilhouette. Calcific granuloma left lower lobe. Vascular calcifications.Demineralization. 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, Severe, Without Behavioral Disturbance, Psychotic Disturbance, Mood Disturbance, And Anxiety (HCC) documented in this encounter Admitting Diagnoses Diagnosis Respiratory Failure (HCC) Acute Respiratory Failure (HCC) Food In Esophagus Causing Other Injury Initial documented in this encounter Administered Medications Inactive Administered Medications - up to 3 most recent administrations Medication Order MAR Action Action Date Dose Rate Site adenosine (Adenocard) 3 mg/mL injection - ADS Override Pull Starting on Sat07/05/25 at 1645, For 1 dose, Created by cabinet override adenosine (Adenocard) 3 mg/mL injection - ADS Override Pull Starting on Sat07/05/25 at 2037, For 1 dose, Created by cabinet override Given 07/05/2025 8:40 PM CDT 6 mg adenosine injection 6 mg (Adenocard) 6 mg, intravenous, Once, On Sat07/05/25 at 1715, For 1 dose, Already given Given 07/05/2025 4:47 PM CDT 6 mg barium 40 % (w/v) suspension As needed, Starting on Sat07/05/25 at 1449, Intra-Op Given 07/05/2025 2:49 PM CDT 10 mL Mouth barium 40 % (w/v), 30% (w/w) paste (Varibar Pudding) As needed, Starting on Sat07/05/25 at 1449, Intra-Op Given 07/05/2025 2:49 PM CDT 10 mL Mouth barium 60 % (w/v) suspension (Liquid E-Z-Paque) As needed, Starting on Sat07/05/25 at 1445, Intra-Op Given 07/05/2025 2:45 PM CDT 50 mL Mouth barium 81 % (w/w) oral powder for suspension (Varibar Thin Liquid) As needed, Starting on Sat07/05/25 at 1449, Intra-Op Given 07/05/2025 2:49 PM CDT 15 mL Mouth donepeziL tablet 10 mg (Aricept) 10 mg, oral, Daily at bedtime, First dose on Sat07/05/25 at 2100 Given 07/06/2025 9:17 PM CDT 10 mg famotidine injection 10 mg (Pepcid) 10 mg, intravenous, 2 times daily, First dose on Sat07/05/25 at 0230, Drug Monitoring Program: Pharmacist to adjust medication dosing based on indication and drug clearance factors. Given 07/05/2025 8:39 AM CDT 10 mg Given 07/05/2025 4:15 AM CDT 10 mg famotidine tablet 10 mg (Pepcid) 10 mg, oral, 2 times daily, First dose on Sat07/05/25 at 2100, Shanitah please, Drug Monitoring Program: Pharmacist to adjust medication dosing based on indication and drug clearance factors. Given 07/07/2025 9:22 AM CDT 10 mg Given 07/06/2025 9:16 PM CDT 10 mg Given 07/06/2025 9:08 AM CDT 10 mg fentaNYL 10 mcg/mL in NaCl 0.9% 250 mL infusion (Sublimaze) - ADS Override Pull Starting on Sat07/05/25 at 0013, For 1 dose, Created by cabinet override 2,500 mcg in 250 mL bag fentaNYL 10 mcg/mL in NaCl 0.9% 250 mL infusion (Sublimaze) 25-100 mcg/hr (2.5-10 mL/hr), intravenous, Continuous, Starting on Sat07/05/25 at 0030, 2,500 mcg in 250 mL bag, Type: Titrate, Initiate at: 25 mcg/hr if more than 3 boluses used in 1 hour., Titrate at: 25 mcg/hr if 3 boluses are used within 1 hour., Goal: For sedation - refer to titratable arousal order for RASS goal. Rate/Dose Change 07/05/2025 12:34 AM CDT 100 mcg/hr 10 mL/hr New Bag 07/05/2025 12:15 AM CDT 25 mcg/hr 2.5 mL/hr fentaNYL injection 25 mcg (Sublimaze) 25 mcg, intravenous, Once, On Sat07/05/25 at 0000, For 1 dose, For RSI Given 07/05/2025 12:00 AM CDT 25 mcg glucagon injection 2 mg (GlucaGen) 2 mg, intravenous, Once, On Sat07/04/25 at 2200, For 1 dose Given 07/04/2025 10:29 PM CDT 2 mg heparin (porcine) injection 5,000 Units 5,000 Units, subcutaneous, Every 8 hours scheduled, First dose on Sat07/05/25 at 0600 Given 07/07/2025 2:40 PM CDT 5,000 Units Left Lower Abdomen Given 07/07/2025 6:44 AM CDT 5,000 Units R ight Upper Arm (Back) Given 07/06/2025 1:29 PM CDT 5,000 Units R ight Upper Arm (Back) iohexoL 300 mg iodine/mL solution (Omnipaque) As needed, Starting on Sat07/05/25 at 1444, Intra-Op Given 07/05/2025 2:44 PM CDT 50 mL Mouth iron dextran 25 mg of iron in NaCl 0.9% IVPB (Infed) 25 mg of iron, intravenous, at 606 mL/hr, Administer over 5 Minutes, Once, On Sat07/06/25 at 0945, For 1 dose, Administer test dose over 5 minutes. Observation after test dose for 15 minutes. Do not repeat test dose with future rounds. New Bag 07/06/2025 10:58 AM CDT 25 mg of iron 606 mL/hr iron dextran 975 mg of iron in NaCl 0.9% IVPB (Infed) 975 mg of iron, intravenous, at 270 mL/hr, Administer over 60 Minutes, Once, On Sat07/06/25 at 1000, For 1 dose, Starting 30 minutes after treatment start time. New Bag 07/06/2025 11:15 AM CDT 975 mg of iron 270 mL/hr Lactated Ringer's bolus 500 mL 500 mL, intravenous, at 250 mL/hr, Administer over 2 Hours, Once, On Sat07/05/25 at 0845, For 1 dose 07/05/2025 8:41 AM CDT 500 mL 250 mL/hr Lactated Ringer's bolus 500 mL 500 mL, intravenous, at 250 mL/hr, Administer over 2 Hours, Once, On Sat07/05/25 at 1715, For 1 dose 07/05/2025 5:01 PM CDT 500 mL 250 mL/hr Lactated Ringer's bolus 500 mL 500 mL, intravenous, at 500 mL/hr, Administer over 1 Hours, Once, On Sat07/06/25 at 0915, For 1 dose New Bag 07/06/2025 9:04 AM CDT 500 mL 500 mL/hr magnesium sulfate in water 2 gram/50 mL (4 %) IVPB - ADS Override Pull Starting on Sat07/05/25 at 1649, For 1 dose, Created by cabinet override magnesium sulfate in water IVPB 2 g 2 g, intravenous, at 25 mL/hr, Administer over 120 Minutes, Once, On Sat07/05/25 at 1715, For 1 dose New Bag 07/05/2025 4:51 PM CDT 2 g 25 mL/hr metoprolol (Lopressor) 5 mg/5 mL injection - ADS Override Pull Starting on Sat07/05/25 at 2043, For 1 dose, Created by [email or web address] override metoprolol injection 5 mg (Lopressor) 5 mg, intravenous, Once, On Sat07/05/25 at 2100, For 1 dose Given 07/05/2025 8:52 PM CDT 5 mg metoprolol tablet 12.5 mg (Lopressor) 12.5 mg, oral, 2 times daily, First dose on Sat07/05/25 at 2100, Hold if pulse <50 or MAP <65 Given 07/06/2025 9:16 PM CDT 12.5 mg Given 07/05/2025 9:50 PM CDT 12.5 mg metoprolol tartrate tablet 25 mg (Lopressor) 25 mg, oral, 2 times daily, First dose (after last modification) on Sat07/07/25 at 0900, Hold if pulse <50 or MAP <65 Given 07/07/2025 9:22 AM CDT 25 mg [id number]-[id number]-Ca-cigarette making examiner als 400 mcg (folic acid) tablet 1 tablet 1 tablet, oral, Daily, First dose on Sat07/05/25 at 0900 Given 07/07/2025 9:22 AM CDT 1 tablet norepinephrine 16 mcg/mL in NaCl 0.9% 250 mL infusion - ADS Override Pull Starting on Sat07/05/25 at 0031, For 1 dose, Created by barrett ibarra Protect from light and avoid extravasation norepinephrine 16 mcg/mL in NaCl 0.9% 250 mL infusion 0-0.3 mcg/kg/min 60.9 kg Dosing weight (0-68.5125 mL/hr, rounded to 0-68.51 mL/hr), intravenous, Continuous, Starting on Sat07/05/25 at 0030, Protect from light and avoid extravasation, Patient Type: Standard, Initiate at: 0.05 mcg/kg/min, Titrate at: 0.05 mcg/kg/min. every 5 min., Wean at: 0.01 mcg/kg/min. every 5 min., Goal: MAP 60-80 New Bag 07/05/2025 12:20 AM CDT 0.05 mcg/kg/min 11.4 mL/hr pantoprazole DR tablet 40 mg (Protonix) 40 mg, oral, Daily before morning meal, First dose on Sat07/05/25 at 0700, Swallow whole. Do NOT crush, chew, or split tablet. Given 07/07/2025 6:44 AM CDT 40 mg pantoprazole injection 40 mg (Protonix) 40 mg, intravenous, Every 24 hours scheduled, First dose on Sat07/05/25 at 0900, Administer IV push over 2 minutes. Add 10 mL NS to 40 mg vial for a final concentration of 4 mg/mL. Given 07/06/2025 9:09 AM CDT 40 mg Given 07/05/2025 8:39 AM CDT 40 mg phenylephrine injection 100 mcg 100 mcg, intravenous, As needed, during RSI as directed by MD, Starting on Sat07/04/25 at 2339 Given 07/05/2025 12:00 AM CDT 100 mcg propofol 10 mg/mL infusion (Diprivan) 5-80 mcg/kg/min 60.9 kg Dosing weight (1.827-29.232 mL/hr, rounded to 1.83-29.23 mL/hr), intravenous, Continuous, Starting on Sat07/05/25 at 0000, Type: Titrate, Initiate at: 5 mcg/kg/min., Titrate at: 5 mcg/kg/min. every 5 min., Goal: For sedation - refer to titratable arousal order for RASS goal Rate/Dose Change 07/05/2025 12:56 AM CDT 60 mcg/kg/min 21.92 mL/hr Rate/Dose Change 07/05/2025 12:32 AM CDT 80 mcg/kg/min 29. 23 mL/hr Rate/Dose Change 07/05/2025 12:25 AM CDT 60 mcg/kg/min 21. 92 mL/hr propofol bolus from bag 30 mg (Diprivan) 30 mg, intravenous, Once, On Sat07/05/25 at 0045, For 1 dose Bolus from Bag 07/05/2025 12:11 AM CDT 30 mg propofoL injection 30 mg (Diprivan) 30 mg, intravenous, Once, On Sat07/05/25 at 0000, For 1 dose, For RSI Given 07/05/2025 12:00 AM CDT 30 mg ramelteon tablet 8 mg (Rozerem) 8 mg, oral, Bedtime PRN, sleep, Starting on Sat07/05/25 at 2251 Given 07/05/2025 11:16 PM CDT 8 mg sennosides-docusate sodium 8.6-50 mg per tablet 1 tablet (Senokot-S) 1 tablet, oral, 2 times daily, First dose (after last modification) on Sat07/06/25 at 0900, Do not give if patient has diarrhea. Given 07/07/2025 9:22 AM CDT 1 tablet Given 07/06/2025 9:16 PM CDT 1 tablet Given 07/06/2025 9:08 AM CDT 1 tablet sodium bicarbonate-citric acid-simethicone effervescent packet (E-Z-Gas II) As needed, Starting on Sat07/05/25 at 1445, Intra-Op Given 07/05/2025 2:45 PM CDT 1 packet Mira th succinylcholine (PF) injection 60 mg (Anectine) 60 mg, intravenous, Once, On Sat07/05/25 at 0000, For 1 dose, RSI Given 07/05/2025 12:00 AM CDT 60 mg documented in this encounter Active and Recently Administered Medications Times are shown in CDT. Scheduled Medication Order 07/05/2025 07/06/2025 07/07/2025 adenosine injection 6 mg (Adenocard) (COMPLETED) 6 mg, intravenous, Once, On Sat07/05/25 at 1715, For 1 dose, Already given 1647 (Given - Provider: Latrell Royal R.N.) donepeziL tablet 10 mg (Aricept) 10 mg, oral, Daily at bedtime, First dose on Sat07/05/25 at 2100 0200 (Held by provider - Provider: Ya Taveras M.D. - Comment: Pending DENTAL SCHEDULER)2100 (Not Given - Provider: Yun Haywood R.N. - Reason: See Provider Order) 1708 (Unheld by provider - Provider: Mounika Briones M.D., M.S.)2117 (Given - Provider: Yun Haywood R.NOsman) famotidine injection 10 mg (Pepcid) (CANCELED) 10 mg, intravenous, 2 times daily, First dose on Sat07/05/25 at 0230, Drug Monitoring Program: Pharmacist to adjust medication dosing based on indication and drug clearance factors. 0415 (Given - Provider: Brooklyn Du RAditya)0839 (Given - Provider: Latrell Royal R.N.) famotidine tablet 10 mg (Pepcid) 10 mg, oral, 2 times daily, First dose on Sat07/05/25 at 2100, Crush please, Drug Monitoring Program: Pharmacist to adjust medication dosing based on indication and drug clearance factors. 2049 (Given - Provider: Yun Haywood RAditya) 0908 (Given - Provider: Jayden Chatman ROsmanN.)211 (Given - Provider: Carlee PuckettN.) 0922 (Given - Provider: Tawny Kaminski ROsmanNOsman) fentaNYL injection 25 mcg (Sublimaze) (COMPLETED) 25 mcg, intravenous, Once, On Sat07/05/25 at 0000, For 1 dose, For RSI 0000 (Given - Provider: Paula Patel ROsmanNOsman) heparin (porcine) injection 5,000 Units 5,000 Units, subcutaneous, Every 8 hours scheduled, First dose on Sat07/05/25 at 0600 0555 (Given - Provider: Brooklyn Du RAditya)1507 (Given - Provider: Latrell Royal ROsmanN.)2150 (Given - Provider: Yun Haywood ROsmanN.) 0550 (Not Given - Provider: Yun Haywood ROsmanN. - Reason: Patient/family refused)1329 (Given - Provider: Karol Aragon RAditya, CCRN)2117 (Not Given - Provider: Yun Haywood ROsmanN. - Reason: Patient/family refused) 0644 (Given - Provider: Yonatan Stevens ROsmanNOsman)1440 (Given - Provider: Tawny Kaminski RAditya) iron dextran 25 mg of iron in NaCl 0.9% IVPB (Infed) (COMPLETED)(Linked Group 1) 25 mg of iron, intravenous, at 606 mL/hr, Administer over 5 Minutes, Once, On Sat07/06/25 at 0945, For 1 dose, Administer test dose over 5 minutes. Observation after test dose for 15 minutes. Do not repeat test dose with future rounds. 1058 (New Bag - Provider: Jayden Chatman RAditya) iron dextran 975 mg of iron in NaCl 0.9% IVPB (Infed) (COMPLETED)(Linked Group 1) 975 mg of iron, intravenous, at 270 mL/hr, Administer over 60 Minutes, Once, On Sat07/06/25 at 1000, For 1 dose, Starting 30 minutes after treatment start time. 1115 (New Bag - Provider: Jayden Chatman R.N.) Lactated Ringer's bolus 500 mL (COMPLETED) 500 mL, intravenous, at 250 mL/hr, Administer over 2 Hours, Once, On Sat07/05/25 at 0845, For 1 dose 0841 (New Bag - Provider: Latrell Royal R.N.) Lactated Ringer's bolus 500 mL (COMPLETED) 500 mL, intravenous, at 250 mL/hr, Administer over 2 Hours, Once, On Sat07/05/25 at 1715, For 1 dose 1701 (New Bag - Provider: Latrell Royal R.N.) Lactated Ringer's bolus 500 mL (COMPLETED) 500 mL, intravenous, at 500 mL/hr, Administer over 1 Hours, Once, On Sat07/06/25 at 0915, For 1 dose 0904 (New Bag - Provider: Jayden Chatman RAditya) magnesium sulfate in water IVPB 2 g (COMPLETED) 2 g, intravenous, at 25 mL/hr, Administer over 120 Minutes, Once, On Sat07/05/25 at 1715, For 1 dose 1651 (New Bag - Provider: Latrell Royal R.N.) metoprolol injection 5 mg (Lopressor) (COMPLETED) 5 mg, intravenous, Once, On Sat07/05/25 at 2100, For 1 dose 2051 (Given - Provider: Yun Haywodo ROsmanNOsman) metoprolol tablet 12.5 mg (Lopressor) (CANCELED) 12.5 mg, oral, 2 times daily, First dose on Sat07/05/25 at 2100, Hold if pulse <50 or MAP <65 2150 (Given - Provider: Yun Haywood R.N.) 0908 (Not Given - Provider: Jayden Chatman R.N. - Reason: Order parameters not met - Comment: softer MAPs <65)2115 (Given - Provider: Yun Haywood R.N.) metoprolol tartrate tablet 25 mg (Lopressor) 25 mg, oral, 2 times daily, First dose (after last modification) on Sat07/07/25 at 0900, Hold if pulse <50 or MAP <65 0922 (Given - Provider: Tawny Kaminski R.N.) [id number]-[id number]-RB-Ca- minerals 400 mcg (folic acid) tablet 1 tablet 1 tablet, oral, Daily, First dose on Sat07/05/25 at 0900 0200 (Held by provider - Provider: Ya Taveras M.D. - Comment: Pending DENTAL SCHEDULER)0900 (Not Given - Provider: Latrell Royal R.N. - Reason: See Provider Order) 0900 (Not Given - Provider: Jayden Chatman R.N. - Reason: See Provider Order)1710 (Unheld by provider - Provider: Mounika Briones M.D., M.S.) 0922 (Given - Provider: Tawny Kaminski R.N.) pantoprazole DR tablet 40 mg (Protonix) 40 mg, oral, Daily before morning meal, First dose on Sat07/05/25 at 0700, Swallow whole. Do NOT crush, chew, or split tablet. 0200 (Held by provider - Provider: Ya Taveras M.D. - Comment: Pending DENTAL SCHEDULER)0700 (Not Given - Provider: Latrell Royal R.N. - Reason: See Provider Order) 0700 (Not Given - Provider: Yun Haywood R.N. - Reason: See Provider Order)1710 (Unheld by provider - Provider: Mounika Briones M.D., M.S.) 0644 (Given - Provider: Yonatan Stevens R.N.) pantoprazole injection 40 mg (Protonix) (CANCELED) 40 mg, intravenous, Every 24 hours scheduled, First dose on Sat07/05/25 at 0900, Administer IV push over 2 minutes. Add 10 mL NS to 40 mg vial for a final concentration of 4 mg/mL. 0839 (Given - Provider: Latrell Royal R.N.) 0909 (Given - Provider: Jayden Chatman RAditya) propofol bolus from bag 30 mg (Diprivan) (COMPLETED) 30 mg, intravenous, Once, On Sat07/05/25 at 0045, For 1 dose 0011 (Bolus from Bag - Provider: Brooklyn Du R.N.) propofoL injection 30 mg (Diprivan) (COMPLETED) 30 mg, intravenous, Once, On Sat07/05/25 at 0000, For 1 dose, For RSI 0000 (Given - Provider: Brooklyn Du R.N.) sennosides-docusate sodium 8.6-50 mg per tablet 1 tablet (Senokot-S) 1 tablet, oral, 2 times daily, First dose (after last modification) on Sat07/06/25 at 0900, Do not give if patient has diarrhea. 0908 (Given - Provider: Jayden Chatman R.N.)6 (Given - Provider: Yun Haywood ROsmanNOsman) 0922 (Given - Provider: Tawny Kaminski ROsmanNOsman) succinylcholine (PF) injection 60 mg (Anectine) (COMPLETED) 60 mg, intravenous, Once, On Sat07/05/25 at 0000, For 1 dose, RSI 0000 (Given - Provider: Brooklyn Du ROsmanNOsman) Continuous Medication Order 07/05/2025 07/06/2025 07/07/2025 fentaNYL 10 mcg/mL in NaCl 0.9% 250 mL infusion (Sublimaze) (CANCELED) 25-100 mcg/hr (2.5-10 mL/hr), intravenous, Continuous, Starting on Sat07/05/25 at 0030, 2,500 mcg in 250 mL bag, Type: Titrate, Initiate at: 25 mcg/hr if more than 3 boluses used in 1 hour., Titrate at: 25 mcg/hr if 3 boluses are used within 1 hour., Goal: For sedation - refer to titratable arousal order for RASS goal. 0015 (New Bag - Provider: Brooklyn Du RAditya)0034 (Rate/Dose Change - Provider: Brooklyn Du R.NOsman)0110 (Stopped - Provider: Brooklyn Du R.N.) norepinephrine 16 mcg/mL in NaCl 0.9% 250 mL infusion (CANCELED) 0-0.3 mcg/kg/min 60.9 kg Dosing weight (0-68.5125 mL/hr, rounded to 0-68.51 mL/hr), intravenous, Continuous, Starting on Sat07/05/25 at 0030, Protect from light and avoid extravasation, Patient Type: Standard, Initiate at: 0.05 mcg/kg/min, Titrate at: 0.05 mcg/kg/min. every 5 min., Wean at: 0.01 mcg/kg/min. every 5 min., Goal: MAP 60-80 0020 (New Bag - Provider: Brooklyn Du R.N.)0110 (Stopped - Provider: Carlee HollowayNOsman) propofol 10 mg/mL infusion (Diprivan) (CANCELED) 5-80 mcg/kg/min 60.9 kg Dosing weight (1.827-29.232 mL/hr, rounded to 1.83-29.23 mL/hr), intravenous, Continuous, Starting on Sat07/05/25 at 0000, Type: Titrate, Initiate at: 5 mcg/kg/min., Titrate at: 5 mcg/kg/min. every 5 min., Goal: For sedation - refer to titratable arousal order for RASS goal 0004 (New Bag - Provider: Brooklyn Du R.N.)0025 (Rate/Dose Change - Provider: Brooklyn Du R.N.)0032 (Rate/Dose Change - Provider: Carlee HollowayNOsman)0056 (Rate/Dose Change - Provider: Carlee HollowayNOsman)0110 (Stopped - Provider: Brooklyn Du R.N.) PRN Medication Order 07/05/2025 07/06/2025 07/07/2025 acetaminophen tablet 1,000 mg (TylenoL) 1,000 mg, oral, 4 times daily PRN, mild pain or score 1-3 of 10, Starting on 07/04/25 at 2338 0415 (Held by provider - Provider: Ya Taveras M.D. - Comment: Pending DENTAL SCHEDULER eval)1944 (Unheld by provider - Provider: Ya Taveras M.D.) barium 40 % (w/v) suspension (COMPLETED) As needed, Starting on Sat07/05/25 at 1449, Intra-Op 1449 (Given - Provider: Adarsh Ramsey M.D.) barium 40 % (w/v), 30% (w/w) paste (Varibar Pudding) (COMPLETED) As needed, Starting on Sat07/05/25 at 1449, Intra-Op 1449 (Given - Provider: Adarsh Ramsey M.D.) barium 60 % (w/v) suspension (Liquid E-Z-Paque) (COMPLETED) As needed, Starting on Sat07/05/25 at 1445, Intra-Op 1445 (Given - Provider: Adarsh Ramsey M.D.) barium 81 % (w/w) oral powder for suspension (Varibar Thin Liquid) (COMPLETED) As needed, Starting on Sat07/05/25 at 1449, Intra-Op 1449 (Given - Provider: Adarsh Ramsey M.D.) iohexoL 300 mg iodine/mL solution (Omnipaque) (COMPLETED) As needed, Starting on Sat07/05/25 at 1444, Intra-Op 1444 (Given - Provider: Adarsh Ramsey M.D.) phenylephrine injection 100 mcg (CANCELED) 100 mcg, intravenous, As needed, during RSI as directed by MD, Starting on Sat07/04/25 at 2339 0000 (Given - Provider: Brooklyn Du R.N.) polyethylene glycol powder packet 17 g (Miralax) 17 g, oral, Daily PRN, constipation, Starting on Sat07/04/25 at 2338, Ordered sequence of administration: polyethylene glycol, then bisacodyl until BM achieved. Avoid mixing with starch-based thickened liquids. ramelteon tablet 8 mg (Rozerem) 8 mg, oral, Bedtime PRN, sleep, Starting on Sat07/05/25 at 2251 2316 (Given - Provider: Yun N [place], R.N.) sodium bicarbonate-citric acid-simethicone effervescent packet (E-Z-Gas II) (COMPLETED) As needed, Starting on Sat07/05/25 at 1445, Intra-Op 1445 (Given - Provider: Adarsh Ramsey M.D.) No Frequency Medication Order 07/05/2025 07/06/2025 07/07/2025 adenosine (Adenocard) 3 mg/mL injection - ADS Override Pull (COMPLETED) Starting on Sat07/05/25 at 203, For 1 dose, Created by cabinet override 2039 (Given - Provider: uYn Haywood R.N.) Linked Groups Order Group 1: iron dextran 25 mg of iron in NaCl 0.9% IVPB (Infed) (COMPLETED)Jump to med 25 mg of iron, intravenous, at 606 mL/hr, Administer over 5 Minutes, Once, On Sat07/06/25 at 0945, For 1 dose, Administer test dose over 5 minutes. Observation after test dose for 15 minutes. Do not repeat test dose with future rounds. Followed by iron dextran 975 mg of iron in NaCl 0.9% IVPB (Infed) (COMPLETED)Jump to med 975 mg of iron, intravenous, at 270 mL/hr, Administer over 60 Minutes, Once, On Sat07/06/25 at 1000, For 1 dose, Starting 30 minutes after treatment start time. documented in this encounter Care Teams Tree Surgeon Helper Relationship Specialty Start Date End Date None Reported, Pcp PCP - General Family Medicine 03/12/25 documented as of this encounter
--- OUTSIDE RECORDS SUMMARY | 2025-07-04 22:40 | XMS_ITS | Encounter Summary ---
Author Organization [facility] Address [address] [place] [address] Care Team Providers Care Meat Stock Clerk Name Role Phone None Reported, Pcp Primary Care Provider Unavail able Encounter Details Date Type Department Care Team (Latest Contact Info) Description 07/04/2025 11:40 PM CDT Ancillary Procedure Department of Gastroenterology Social History Tobacco Use Types Packs/Day Years [...] things needed for daily living? No 07/05/2025 [facility] Utilities Answer Date Recorded In the past 12 months has e electric, gas, oil, or water company threatened to shut off services in your home? No 07/05/2025 Housing Stability Answer Date Recorded What is your living situation today? I have a [facility] place to live 07/05/2025 Education Answer Date Recorded What is the highest level of school you have completed or the highest degree you have received? 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 The clinical documentation to support these images can be found on the encounter that produced images. us Provider Not In System IMG NON RAD IMAGING PROCE DURES Final Result [facility] NA documented in this encounter Visit Diagnoses Not on filedocumented in this encounter Care Teams Meat Stock Clerk Relationship Specialty Start Date End Date None Reported, Pcp PCP - General Family Medicine 03/12/25 documented as of this encounter
[2025-08-06] VITALS (30 sets, daily range): BP systolic 94–133; BP diastolic 53–88; PULSE 84–118; RESP 10–29; TEMP 37.1; O2SAT 94–97; BMI 21.6
--- NOTE | 2025-08-06 15:34 | CRLHL7_ITS ---
For Patients: As a result of the Century Cures Act, medical imaging exams and procedure reports are released immediately into your electronic medical record. You may view this report before your referring provider. If you have questions, please contact your health care provider. INDICATION: Cough x3 days. To assess for pneumonia. TECHNIQUE: Chest 2 views. COMPARISON: None FINDINGS: Tubes and devices: None. Lungs: A 1.5 centimeter nodular density projects over the left base. This could be nipple shadow as it is not noted on the lateral view. Bilateral bronchial wall thickening. Mild linear interstitial changes both lung bases, greater on the right. The lungs are otherwise clear. Pleura: No pleural effusion. No pneumothorax. Heart: Heart size and vasculature are normal in caliber and appearance. Vivian and Mediastinum: No enlargement. Bones and soft tissues: Superior endplate fracture with resulting kyphosis at T12. Large retrocardiac hiatus hernia with air-fluid. IMPRESSION: 1. 1.5 centimeter nodular density left base on the frontal view only. This likely represents a nipple shadow as the finding was not reproduced on the lateral view. Suggest repeat study with nipple markers or chest CT for further characterization. 2. No other infiltrates or nodules. 3. Mild bibasilar interstitial changes greater on the right along with bilateral bronchial wall thickening. Dictated by Peter Cedeno MD @ 08/06/2025 4:27:46 PM (Electronically Signed)
--- NOTE | 2025-08-06 17:33 | ED_ITS ---
HPI - General Adult General Time Seen by Provider: 17:33 Date Seen: 08/06/25 Chief complaint: Cough Stated complaint: possible Pneumonia Time Seen by Provider: 08/06/25 17:33 Source: patient and RN notes reviewed Mode of arrival: ambulatory Limitations: no limitations History of Present Illness HPI narrative: This 80-year-old female is accompanied by family member with concern of possible pneumonia. Patient was coughing overnight. There is no fevers. They have concerns could she really has not ate or drank much the last couple of days. She denies any pain. She denies any sore throat or nasal congestion. Her daughter is not aware of any known rhythm disturbances. In past medical records in [facility], patient has a history of Hankins's esophagus with high-grade dysplasia, hyponatremia, hiatal hernia, acute upper GI bleed with the camera ulcer in October 2019, history of acute blood loss anemia as well as anemia of chronic disease, history of thoracic vertebral fracture, fracture left femoral neck September 2019 with left hip hemiarthroplasty, left foot drop, subacute compression fracture T2 20%, T12 20% and L1 90%, dementia Alzheimers type, history of subdural hematoma, DNR. She has had a history of alcohol use disorder, moderate dependence. Last EGD that I see documented was 11/21/2023. Related Data Home Medications ?Medication ?Instructions ?Recorded ?Confirmed donepezil 10 mg tablet 10 mg PO DAILY 08/06/2507/24 esomeprazole magnesium 40 mg 40 mg PO BID 08/06/25 capsule,delayed release famotidine 20 mg tablet 20 mg PO BID 08/06/25 Allergies Allergy/AdvReac Type Severity Reaction Status Date / Time NSAIDS (Non-Steroidal AdvReac Unknown STOMACH Verified 08/06/25 15:25 Anti-Inflamma ULCER Review of Systems Narrative: Patient really denying any symptoms, do wonder about the validity given her dementia. She specifically is asked about chest pain, she denies any, not short of breath. PFSH PFSH Social History Smoking Status: Never smoker How often do you have a drink containing alcohol: never AUDIT-C Alcohol total score: 0 Non-prescribed substance use: denies use Exam Const: Vital Signs, click to edit/add: Vital Signs - 24 hr 08/06/25 15:21 08/06/25 17:36 08/06/25 17:52 Temperature 98.8 F Pulse Rate Pulse Rate [Pulse Oximeter] 89 Respiratory Rate 16 14 Blood Pressure 131/88 Blood Pressure [Ri ght Upper Arm] 111/70 Pulse Oximetry 95 95 95 Oxygen Delivery Me thod Room Air 08/06/25 17:53 08/06/25 18:00 08/06/25 18:09 Temperature Pulse Rate Pulse Rate [Pulse Oximeter] Respiratory Rate 21 29 H 24 Blood Pressure 94/71 Blood Pressure [Ri ght Upper Arm] Pulse Oximetry Oxygen Delivery Me thod 08/06/25 18:15 08/06/25 18:16 08/06/25 18:21 Temperature Pulse Rate 118 H Pulse Rate [Pulse Oximeter] Respiratory Rate 19 11 L 21 Blood Pressure 102/65 116/73 Blood Pressure [Ri ght Upper Arm] Pulse Oximetry 95 Oxygen Delivery Me thod 08/06/25 18:30 08/06/25 18:31 08/06/25 18:42 Temperature Pulse Rate 90 96 91 Pulse Rate [Pulse Oximeter] Respiratory Rate 25 H 16 18 Blood Pressure 117/68 129/71 Blood Pressure [Ri ght Upper Arm] Pulse Oximetry 97 97 97 Oxygen Delivery Me thod 08/06/25 18:45 08/06/25 18:52 08/06/25 19:00 Temperature Pulse Rate 92 Pulse Rate [Pulse Oximeter] Respiratory Rate 20 15 14 Blood Pressure 133/71 Blood Pressure [Ri ght Upper Arm] Pulse Oximetry 94 Oxygen Delivery Me thod 08/06/25 19:01 08/06/25 19:11 08/06/25 19:15 Temperature Pulse Rate Pulse Rate [Pulse Oximeter] Respiratory Rate 17 21 11 L Blood Pressure 116/82 113/78 Blood Pressure [Ri ght Upper Arm] Pulse Oximetry Oxygen Delivery Me thod 08/06/25 19:21 08/06/25 19:30 08/06/25 19:31 Temperature Pulse Rate Pulse Rate [Pulse Oximeter] Respiratory Rate 15 Blood Pressure 114/71 101/53 L Blood Pressure [Ri ght Upper Arm] Pulse Oximetry Oxygen Delivery Me thod 08/06/25 19:41 08/06/25 19:45 08/06/25 19:52 Temperature Pulse Rate Pulse Rate [Pulse Oximeter] Respiratory Rate 10 L Blood Pressure 112/61 100/59 L Blood Pressure [Ri ght Upper Arm] Pulse Oximetry Oxygen Delivery Me thod 08/06/25 20:00 08/06/25 20:01 Temperature Pulse Rate 84 Pulse Rate [Pulse Oximeter] Respiratory Rate 12 17 Blood Pressure 105/67 Blood Pressure [Ri ght Upper Arm] Pulse Oximetry Oxygen Delivery Me thod Room Air This 80-year-old female is seen in exam room 7, she is lying in the bed. She is very slender, appears cachectic but is alert, interactive, no apparent distress. Sclera clear, pupils equal round reactive, symmetrical facial function. Neck is thin slender, no masses. She is able to sit up with assistance, there is kyphosis but lungs are clear, no wheezing or crackles, tachypnea, no accessory muscle use. CV is very fast and regular, on a 2nd count palpating her radial pulse, I was at 180s to 190s. Abdomen is soft, nontender, nondistended, no organomegaly, rebound or guarding. She has no lower extremity edema. I did go out and alert nursing staff, they are working on getting IV placement, labs, EKG and cardiac monitoring. Documenting provider has reviewed patient's vital signs: yes Course Course ED Course: Patient obviously has an abnormal heart rhythm, have when out tell nursing staff immediately and we will be getting EKG and cardiac monitoring. She had a chest x-ray done as they were concerned about pneumonia, two view chest x-ray was done in triage and has been read, there is no evidence of pneumonia. Will be getting labs, need to see with this arrhythmia is. Patient's EKG is showing SVT at 202 beats per minute. Reevaluation(s) Time of Reevaluation #1: 18:21 Reevaluation #1: This patient was given adenosine 6mg at 6:20 p.m.. She had a brief pause, went into a sinus rhythm, had about a 5 beat run of V-tach, then some ventricular ectopy juxtaposed with sinus. She is now in a sinus tachycardia around 110-112. Patient seems to be at baseline after this. Her daughter notes that she was given metoprolol when she was in the hospital about a month ago at [place], she states it made her constipated, they quit it at the end of June. Time of Reevaluation #2: 19:40 Reevaluation #2: Have reviewed with patient's children that she lives with that her here. She has been with them for about 5 and half years. We discussed that her troponin was elevated, reviewed that this is a heart marker. Certainly is likely coming from strain on her heart with the SVT, we have no idea how long she has been in this but presumably it has been a couple of days, she is absolutely not giving us any symptoms outside of diminished eating and drinking the last couple of days. Her coughing did start last night, it is possible that could have been the harbinger of her SVT. At no time during any of this, even with the chemical cardioversion with the adenosine did she complain of any discomfort or symptoms. She basically denies any symptoms when you ask her. We have had a discussion that I suspect her dementia is likely pretty severe. We discussed coronary ischemia and blockages in her heart. They do not want anything like cardiac catheterization or any invasive procedures. We are going to recheck a troponin, if stable, do think she can probably go home. We did discuss the rate control in she does need metoprolol, they can try half tablet of the metoprolol XL 50mg for 25 mg daily. They can try things like prunes or prune juice, MiraLax to help with constipation if they should know this. We did discuss that metoprolol is not usually a very constipating medication for most. We did discuss that the chest x-ray is not showing any pneumonia but this is something they still can watch for. If she has ongoing coughing, cough is worsening, develops fever with symptoms, would recommend recheck. Time of Reevaluation #3: 20:29 Reevaluation #3: Repeat troponin is the same, I think this likely reflects stress on the heart from being in SVT. Given that patient is not giving us any symptoms at this time, family would not want any interventions such as angiography your anything invasive, feel it is reasonable to have them take her home. Will give her metoprolol 25 mg here tonight immediate release for rate control and then allow discharge. Consultations Consultation #1: Spoke with Johanne JAQUEZ in triage center at [place]. We will fax the EKGs, they will contact Cardiology for me so I can discuss a plan for rate control. 6:57 p.m.: Have spoken with Dr. Elena cardiology at [place]. He 1st of all does not see much constipation with metoprolol, I do 2nd that. I will talk to the daughter about this further. He thinks that we certainly can try to do half dose of the metoprolol, supplement with prune juice or MiraLax. The daughter can call for an appointment with them, they would be happy to follow up with her. Did review the chemical cardioversion. Time: 18:38 Vital Signs Vital signs: Initial Vital Signs Temperature 98.8 F 08/06/25 15:21 Temperature Source Temporal Artery Scan 08/06/25 15:21 Pulse Rate 89 08/06/25 15:21 Pulse Rhythm Regular 08/06/25 15:21 Respiratory Rate 16 08/06/25 15:21 Blood Pressure 111/70 08/06/25 15:21 Blood Pressure Mean 83 08/06/25 15:21 Blood Pressure Position Sitting 08/06/25 15:21 Pulse Oximetry 95 08/06/25 15:21 Oxygen Delivery Method Room Air 08/06/25 15:21 Vital Signs Temperature 98.8 F 08/06/25 15:21 Pulse Rate 89 08/06/25 15:21 Respiratory Rate 16 08/06/25 15:21 Blood Pressure 111/70 08/06/25 15:21 Pulse Oximetry 95 08/06/25 15:21 Oxygen Delivery Method Room Air 08/06/25 15:21 Temperature 98.8 F 08/06/25 15:21 Pulse Rate 84 08/06/25 20:01 Respiratory Rate 17 08/06/25 20:01 Blood Pressure 105/67 08/06/25 20:01 Pulse Oximetry 94 08/06/25 18:45 Oxygen Delivery Method Room Air 08/06/25 20:01 Medications Administered Medications: Discontinued Medications Generic Name Dose Route Start Last Admin Trade Name Freq PRN Reason Stop Dose Admin Adenosine 6 mg 08/06/25 17:52 08/06/25 18:18 Adenosine 6 Mg/2ml Inj IVP 08/06/25 17:53 6 mg ONCE ONE Administration Sodium Chloride 500 mls @ 500 mls/hr 08/06/25 17:52 08/06/25 19:28 0.9 % Sodium Chloride 500 Ml IV 08/06/25 18:51 Infused .Q1H ONE Infusion Medical Decision Making Lab Data Lab results reviewed: Yes I reviewed the patient's lab results Lab results narrative: Repeat troponin I is same at 0.11. Labs: Lab Results 08/06/25 Range/Units 18:15 WBC 7.64 (4.50-11.00) K/uL RBC 5.25 H (4.00-5.20) m/uL Hgb 15.5 (12.0-16.0) gm/dL Hct 48.5 (33.0-51.0) % MCV 92 (80-100) fL MCH 30 (26-34) pg MCHC 32 (32-36) gm/dL RDW Coeff of Sameer 12.8 (11.5-15.5) % Plt Count 375 (140-440) K/uL Neut % (Auto) 74.7 H (42.0-72.0) % Lymph % (Auto) 14.1 L (20-44) % Donley % (Auto) 9.7 (0.0-11.0) % Eos % (Auto) 0.0 (0.0-7.0) % Baso % (Auto) 0.3 (0.0-3.0) % Neut # (Auto) 5.70 (1.7-7.0) K/uL Lymph # (Auto) 1.10 (0.90-2.90) K/uL Donley # (Auto) 0.70 (0.00-0.90) K/UL Eos # (Auto) 0.00 (0.00-0.50) K/uL Baso # (Auto) 0.02 (0.00-0.30) K/uL Abs Immat Gran (auto) 0.09 (0.00-0.30) K/uL Imm/Tot Granulo (auto) 1.2 % Sodium 133 L (135-149) mmol/L Potassium 4.4 (3.6-5.1) mmol/L Chloride 99 (96-114) mmol/L Carbon Dioxide 19 L (20-32) mmol/L Anion Gap 15 (7-15) mEq/L BUN 25 (7-30) mg/dL Creatinine 0.8 (0.5-1.5) mg/dL Estimated Creat Clear 39.03 Estimated GFR 74 ml/min Glucose 133 H (60-115) mg/dL Calcium 9.3 (8.4-10.6) mg/dL Magnesium 1.9 (1.5-2.6) mg/dL Total Bilirubin 0.6 (0.1-1.5) mg/dL AST 43 H (12-35) U/L ALT 51 H (4-35) U/L Alkaline Phosphatase 96 (40-150) U/L Troponin I 0.11 H* (0.01-0.04) ng/mL NT-Pro-B Natriuret Pep 1260 H (See Note) pg/mL Total Protein 7.8 (6.0-8.3) g/dL Albumin 4.4 (3.3-5.0) g/dL TSH 5.130 H (0.270-4.200) uIU/mL Free T4 1.23 (0.70-1.85) ng/dL Imaging Data Chest x-ray: Attestation: I have reviewed the pertinent imaging results. Radiologist's impression: Patient: STEPHANIE BRITO Facility:?[facility] Patient ID:?[id number] Site Patient ID:?[id number]. Site :?[id number] Study:?XRay-Chest 2V-08/06/2025 4:21:05 PM Ordering Physician:?PROVIDER TEMP Final Report: INDICATION: Cough x3 days. To assess for pneumonia. TECHNIQUE: Chest 2 views. COMPARISON: None FINDINGS: Tubes and devices: None. Lungs: A 1.5 centimeter nodular density projects over the left base. This could be nipple shadow as it is not noted on the lateral view. Bilateral bronchial wall thickening. Mild linear interstitial changes both lung bases, greater on the right. The lungs are otherwise clear. Pleura: No pleural effusion. No pneumothorax. Heart: Heart size and vasculature are normal in caliber and appearance. Vivian and Mediastinum: No enlargement. Bones and soft tissues: Superior endplate fracture with resulting kyphosis at T12. Large retrocardiac hiatus hernia with air-fluid. IMPRESSION: 1. 1.5 centimeter nodular density left base on the frontal view only. This likely represents a nipple shadow as the finding was not reproduced on the lateral view. Suggest repeat study with nipple markers or chest CT for further characterization. 2. No other infiltrates or nodules. 3. Mild bibasilar interstitial changes greater on the right along with bilateral bronchial wall thickening. Dictated by Peter Cedeno MD @ 08/06/2025 4:27:46 PM (Electronic Signature) ECG Data Attestation: I personally reviewed and interpreted this ECG as follows: (SVT, 202 beats per minute. Lateral ST segment and flipped T-wave changes.) Prior ECG tracings: not available for review Interpretation: Repeat EKG at 6:30 a.m. shows normal sinus rhythm, 96 beats per minute. Non specific T-wave changes, improved from the EKG with SVT. Critical Care Time Critical Care Time Total Critical Care Time in Minutes: 30 Discharge Plan Discharge Clinical Impression: Paroxysmal supraventricular tachycardia Patient Disposition: Home w/ Parent or Adult Condition: Stable Instructions: Supraventricular Tachycardia (ED) Additional Instructions: Try metoprolol XL half dose for 25 mg daily. Can use prunes or prune juice, even MiraLax to help with constipation if you are seen this. If you want her seen by Cardiology, you can call [facility] to request an appointment. Otherwise, I highly advise you to have her go in and see her primary care provider within the next couple weeks. Prescriptions: No Action donepezil 10 mg tablet 10 mg PO DAILY famotidine 20 mg tablet 20 mg PO BID esomeprazole magnesium 40 mg capsule,delayed release(DR/EC) 40 mg PO BID Follow Up/Referrals: Bari Benz MD [Primary Care Provider, Family Practice] Stand Alone Forms: [facility] Info Instructions
[2025-08-06] MEDS: ADENOSINE 6 MG/2ML INJ IVP (18:18)
[2025-08-06] MEDS: 0.9 % SODIUM CHLORIDE 500 ML 500 ML IV (18:18)
[2025-08-06 18:23] LABS: Hematocrit* 48.5 % (33.0-51.0); Hemoglobin* 15.5 gm/dL (12.0-16.0); Immature Granulocytes Abs Auto 0.09 K/uL (0.00-0.30); Immature Granulocytes Pct Auto 1.2 %; Mean Corpuscular HGB Conc 32 gm/dL (32-36); Mean Corpuscular Hemoglobin 30 pg (26-34); Mean Corpuscular Volume 92 fL (80-100); RDW Coefficient of Variation % 12.8 % (11.5-15.5); Red Blood Count* 5.25 m/uL (4.00-5.20); White Blood Count* 7.64 K/uL (4.50-11.00)
[2025-08-06 18:24] LABS: Lymphocytes Absolute Auto 1.10 K/uL (0.90-2.90); Slide Review Reflex No
--- OUTSIDE RECORDS SUMMARY | 2025-08-06 18:28 | XMS_ITS | Encounter Summary ---
Author Organization [facility] Address [address] [place] [address] Care Team Providers Care Supervisor Mail Carriers Name Role Phone None Reported, Pcp Primary Care Provider Unavail able Encounter Details Date Type Department Care Team (Latest Contact Info) Description 07/23/2025 Clinical Communication Department of Cardiovascular Medicine in [place], [place] [address] [place] [address] Farmer GeneralAndrea M.D. Social History Tobacco Use Types Packs/Day Years [...] money to buy more. Never true 07/05/20 Within the past 12 months, t he [...] things needed for daily living? No 07/05/2025 [facility] Utilities Answer Date Recorded In the past 12 months has th e electric, gas, oil, or water company threatened to shut off services in your home? No 07/05/2025 Housing Stability Answer Date Recorded What is your living situation today? I have a [facility] place to live 07/06/2025 Education Answer Date Recorded What is the highest level of school you have completed or the highest degree you have received? 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
--- OUTSIDE RECORDS SUMMARY | 2025-08-06 18:28 | XMS_ITS | Patient Health Record ---
Author Organization [facility] Address [address] [place] [address] Care Team Providers Care Cloth Washer Back Tender Name Role Phone Chris Graym Primary Care Provider Reason For Referral No Information Medications Medication SIG (Take, Route, Frequency, Duration) Notes Start Date End Date Status triamcinolone topical 0.1% cream 1 anya applied topically TID; Duration: 2 week(s) 11/05/2007 Active Social History Social History Additional Details Category Social Info Options Details Migrated Social History Migrated Social History (Alcohol:):no ;(Drug use:):no ;(Smoking:):no ; Plan Of Treatment No Information Medical (General) History Surgical History Surgery Date(Month/Year) begin tumor removed for salivary gland
--- OUTSIDE RECORDS SUMMARY | 2025-08-06 18:29 | XMS_ITS | Encounter Summary ---
Author Organization [facility] Address [address] [place] [address] Care Team Providers Care Water Safety Instructor Name Role Phone None Reported, Pcp Primary Care Provider Unavail able Reason for Visit * Reason Onset Date Comments Triage 07/07/2025 CONS//Prabha// [facility] // [phone] Encounter Details Date Type Department Care Team (Latest Contact Info) Description 07/07/2025 Clinical Communication Department of Cardiovascular Medicine in [place], [place] [address] [place] [address] Nurse Practitioner Per DiemAndrea M.D. Triage (CONS//Prabha// [facility] // [phone]) Social History Tobacco Use Types Packs/Day Years [...] things needed for daily living? No 07/05/2025 [facility] Utilities Answer Date Recorded In the past 12 months has e electric, gas, oil, or water company threatened to shut off services in your home? No 07/05/2025 Housing Stability Answer Date Recorded What is your living situation today? I have a [facility] place to live 07/06/2025 Education Answer Date Recorded What is the highest level of school you have completed or the highest degree you have received? 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 - 07/08/2025 9:46 AM CDT Comprehensive Cardiology Triage The following information has been gathered from review of available medical records as of 07/08/25for triage purposes.. It is not a comprehensive summary, and has not been verified by the patient. The Appointment Triage Team does not establish a relationship with the patient, nor manage the patient's care outside of an initial review for the purposes of pre-appointment triage. Summary Jazmin Lyn is internally referred by MICU for clinical question: AVNRT management. 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, AVNRT Alzheimer's Dementia History of prior traumatic subdural hemorrhage (2018) High delirium risk Acute hypoxic respiratory failure, improving Aspiration pneumonitis vs PNA Acute esophageal food impaction s/p EGD with removal (07/05/2025) Concern for esophageal stricture Hankins's esophagus w/ dysplasia s/p Halo ablation (last 03/2024) GERD Prior alcohol use disorder (last drink 2019) History of GI bleed, Anthony's ulcers (2019), LA grade D esophagitis (01/2025) Large Hiatal hernia Pertinent Testing/Consults Labs (CBC, CMP, TSH, Mag) CXR ECG TTE Overnight ox 07/07/2025 Inpatient CV Consult Note: ...At this time looking at her telemetry, she has narrow complex tachycardia, likely triggered by PAC with retrograde P waves seen overall suggestive of AVNRT. Since she was monitored on telemetry and was asymptomatic, based on her age and overall other comorbid conditions, we think that it is appropriate to proceed and continue her medical therapy. She was started on metoprolol tartrate which weagree with, and I spoke with the primary team and recommended up titrating it as tolerated. She canfollow up with her primary care physician or General Cardiology in the outpatient setting. If she is having recurrent symptomatic episodes, consideration for alternative medical therapy (or ablation)can be considered... Additional OSM needed? No documented in this encounter Plan of Treatment Not on file documented as of this encounter Visit Diagnoses Diagnosis Supraventricular Tachycardia, Unspecified (HCC)- Primary documented in this encounter Care Teams Water Safety Instructor Relationship Specialty Start Date End Date None Reported, Pcp PCP - General Family Medicine 03/12/25 documented as of this encounter
--- OUTSIDE RECORDS SUMMARY | 2025-08-06 18:29 | XMS_ITS | Encounter Summary ---
Author Organization [facility] Address [address] [place] [address] Care Team Providers Care Metals Sales Representative Name Role Phone None Reported, Pcp Primary Care Provider Unavail able Reason for Visit * Reason Onset Date Comments Reschedule 07/23/2025 Encounter Details Date Type Department Care Team (Latest Contact Info) Description 07/23/2025 Clinical Communication Department of Cardiovascular Medicine in [place], [place] [address] [place] [address] Staffing AnalystAndrea M.D. Reschedule Social History Tobacco Use Types Packs/Day Years [...] things needed for daily living? No 07/05/2025 [facility] Utilities Answer Date Recorded In the past 12 months has [employer] electric, gas, oil, or water company threatened to shut off services in your home? No 07/05/2025 Housing Stability Answer Date Recorded What is your living situation today? I have a [facility] place to live 07/06/2025 Education Answer Date Recorded What is the highest level of school you have completed or the highest degree you have received? 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
--- OUTSIDE RECORDS SUMMARY | 2025-08-06 18:33 | XMS_ITS | Clinical Summary ---
Author Organization [employer] [facility] Address [address] [place] [id number] Care Team Providers Care Stock Roller Name Role Phone Bari Benz MD Primary Care Provider Allergies Active Allergy Reactions Criticality Noted Date Comments Nsaids (Non-Steroidal Anti-I nflammatory Drug) GI Bleeding High 09/22/2021 Medications ferrous sulfate, 65 mg elemental, 324 mg (65 mg iron) Delayed-Release tablet Take 324 mg by mouth once daily with a meal. 2 Active vit A/vit C/vit E/zinc/copper (PRESERVISION AREDS ORAL) Take 1 Tablet by mouth at bedtime. Active donepeziL (ARICEPT) 10 mg tabletIndicatio ns:Dementia in Alzheimer's disease (HC) Take 1 Tablet (10 mg) by mouth once daily. 90 Tablet 2 5 Active famotidine 20 mg tabletIndicatio ns:PUD (peptic ulcer disease) Take 1 Tablet (20 mg) by mouth two times daily. 180 Tablet 1 5 Active esomeprazole delayed release capsule (NEXIUM) 40 mg Take 40 mg by mouth once daily before a meal. 5 Active pantoprazole 40 mg delayed-release tabletIndicatio ns:PUD (peptic ulcer disease) Take 1 Tablet (40 mg) by mouth two times daily before meals. 180 Tablet 1 5 07/22/20 25 Discontinu ed(*Patien t states no longer taking) metoprolol succinate (TOPROL XL) 50 mg sustained-relea se tablet Take 50 mg by mouth once daily. Do not crush or chew 5 07/22/20 25 Discontinu ed(*Allerg ic/Adverse Rxn/Side Effects) Active Problems Problem Noted Date Diagnosed Date H/O: upper GI bleed 01/23/2025 Coffee ground emesis 01/22/2025 GIB (gastrointestinal bleeding) 04/09/2024 Acute blood loss anemia 04/09/2024 Hankins's esophagus with high grade dysplasia Overview (03/14/2023): 02/2023 Hankins's esophagus with high-grade dysplasia Dementia in Alzheimer's disease 07/01/2020 Hyponatremia 11/10/2019 Subacute compression fractur e of T2 (20%), T12 (20%), and L1 (90%) 11/10/2019 Hiatal hernia 11/10/2019 Acute upper GI bleed: Anthony ulcer October 0 11/10/2019 Left foot drop 10/19/2019 Closed displaced fracture of left femoral neck (HC) Sep 2019 s/p Left hip hemiarthroplasty 09/25/2019 Overview (09/28/2019): 09/25/2019 xray pelvis and hip: Angulated fracture of the left femoral neck. Osteoarthritis in the right hip joint. 09/26/2018 Left hip hemiarthroplasty Anemia, chronic disease 09/25/2019 Overview (09/28/2019): HEMOGLOBIN (g/dL) Date Value 09/25/2019 10.8 (L) HEMOGLOBIN (g/dL) Date Value 09/27/2019 9.8 (L) History of subdural hematoma 09/25/2019 Overview (09/25/2019): 07/13/2019 presented to the [place] [facility] after a fall which resulted in a subdural hematoma resulting in a transfer to [facility]. 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 09/02/2019 09/25/2019 Confusion 09/02/2019 11/20/2019 History of recent fall 09/02/201909/25 SDH (subdural hematoma) 09/02/2019 01/0 11/2019 Encounters Date Type Department Care Team Description 08/06/2025 Nurse Triage [facility] Centralized Nurse Triage Bari Benz MD Cough 07/22/2025 2:05 PM CDT Office Visit [facility] [address] [place] [address] Bari Benz MD Hospital F/U ([facility], 07/04/2025 -07/07/2025, object stuck in Esophagus ) 07/21/2025 Travel 07/16/2025 Nurse Triage [facility] [address] [place] [address] Bari Benz MD Concerns; Constipation from Last 3 Months Immunizations Immunization Administration Dates Next Due Tdap 07/13/2019 Family History Medical History Relation Name Comments Anesthesia Problem No Family History Social History Tobacco Use Types Packs/Day Years Used Date Smoking Tobacco: Former Cigarettes 0.5 22 0 09/23/1962 - 09/23/1984 Smokeless Tobacco: Never Tobacco Cessation:Counseling Given: No Alcohol Use Standard Drinks/Week Comments Not Currently 0 (1 standard drink = 0.6 oz pur e alcohol) PHQ-2 Answer Date Recorded PHQ-2 TOTAL SCORE 0 10/22/2024 Social Connections Answer Date Recorded Do you often feel lonely or isolated from those around you? 0 10/21/2024 Alcohol Use Answer Date Recorded How often do you have a drink containing alcohol ? 0 07/22/2025 Average Number of Drinks Not on file 025 Frequency of Binge Drinking Not on file 06/25 Financial Resource Strain Answer Date R ecorded Difficulty of Paying Living Expenses 3 10/21/2024 Difficulty of Paying Living Expenses Not on file 10/21/2024 Food Insecurity Answer Date Recorded Do you worry your food will run out before you are able to buy more? 1 10/21/2024 Transportation Needs Answer Date Record ed Does lack of transportation keep you from medica l appointments? 1 10/21/2024 Does lack of transportation keep you from work, meetings or getting things that you need? 1 10/21/2024 Housing Stability Answer Date Recorded What is your housing situation today? 1 10/21/2024 Interpersonal Safety Answer Date Record ed Are you being hit, kicked, p ushed or yelled at (see row info)? No 09/22/2024 Interpersonal Safety Abuse 12 - 18 Not on file 09/22/2024 Interpersonal Safety Ambulatory Vulnerability No t on file 09/22/2024 Utilities Answer Date Recorded Do you have trouble paying f or utilities (for example, heat, electricity, water, phone)? 1 10/21/2024 Comments No Sex and Gender Information Value Date Recorded Sex Assigned at Female 10/25/2021 8:30 PM [employer] Legal Sex Female 7:26 AM [employer]SEM[employer] Gender Identity Female 10/25/2021 8:30 PM [employer]ER Sexual Orientation Straight 10/25/2021 8: 30 PM [employer]SEM[employer]ER Obstetrics History Last Filed Vital Signs Vital Sign Reading Time Taken Comments Blood Pressure 114/71 07/22/2025 2:14 PM CDT Pulse 59 07/22/2025 2:14 PM CDT Temperature 36.8 C (98.2 F) 01/25/2025 7:59 AM CDT Respiratory Rate 16 01/25/2025 7:59 AM CDT Oxygen Saturation 96% 07/22/2025 2:14 PM CDT Inhaled Oxygen Concentration - - Weight 60.6 kg (133 lb 9.6 oz) 07/22/2025 2:14 P M CDT Height 154.9 cm (5' 1) 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 Body Mass Index 25.24 10/22/2024 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 Plan of Treatment Health Maintenance Due Date Last Done Comments Pneumococcal series for age 50+ (1 of 2 - PCV) 1962 Zoster (shingles) series for age 50+ (1 of 2) 1993 DEXA/DXA scan for age 65+ 2008 RSV vaccine for adults or (1 - 1-dose 75+ series) 2018 Influenza Vaccine (#1) 2025 BMI (ht and wt on same day) for age 18+ 10/22/2025 10/22/2024, 03/17/2024, 11/20/2023, Additional history exists Depression screening for age 12+ 10/22/2025 10/22/2024 Medicare Wellness for age 65+ 10/23/2025 10/22/2024, 05/24/2022 Tetanus booster 07/13/2029 07/13/2019 Hepatitis B series for 19+ Aged Out N o longer eligible based on patient's age to complete this topic Medical Devices Implanted Type Area Sign Hanger Device Identifier Shelf Expiration Date Model / Serial / Lot Omnifit Hfx 127 Degree Hip Stem Tomas: #5, Tpr C-Tpr, Nk Lnth: 25mm Implanted:Qty: 1 on 09/26/2019 by Holger Jane MD at [facility], [facility]. Left: Hip [facility] Omnifit HFx 127Degree Hip Stem 11/29/2022 [id number] / / [id number] Description:Omnifit HFx 127 Degree Hip Stem TOMAS: #5 TPR: C-TPR NK LNTH: 25mm C-Taper Head +7.5 Offset Lfit Head Tomas: 28mm, Offst: +7.5 Implanted:Qty: 1 on 09/26/2019 by Holger Jane MD at [facility], [facility]. Left: Hip [facility] C-Taper Head 04/24/2021 [id number] / / [id number] Description:C-Taper Head +7.5 Offset LFIT Head TOMAS: 28mm OFFST: +7.5 Uhr Provo Head Bipolar Component Od: 44mm, Id: 28mm Implanted:Qty: 1 on 09/26/2019 by Holger Jane MD at [facility], Misc. Left: Hip [facility] Provo Head Bipolar Component 08/28/2022 [id number] / / [id number] Description:UHR [place] He ad Bipolar Component OD: 44mm, ID: 28mm Omnifit Provo Distal Cement Spacer Memo: 11mm Implanted:Qty: 1 on 09/26/2019 by Holger Jane MD at [facility], Mis. Left: Hip [facility] Provo Distal Cement Spacer 06/28/2020 [id number] / / [id number] Description:Omnifit Pro[place] Distal Cement Spacer MEMO: 11mm Cmnt Bone 40g Simplex P Atb Mvtobramycin - [id number] Implanted:Qty: 1 on 09/26/2019 by Holger Jane MD at [facility] Left: Hip [facility] Antibiotic Simplex 05/23/2020 6197-9-01 0# / / [id number] Description:Antibiotic Simpl ex Bone Cement Full Dose Cmnt Bone 40g Simplex P Atb Mvtobramycin - [id number] Implanted:Qty: 1 on 09/26/2019 by Holger Jane MD at [facility] Left: Hip [facility] Tobra Full Dose 05/23/2020 6197-9-01 0# / / [id number] Description:Antibiotic Simpl ex Tobra Full Dose Bone Cement Cmnt Bone 40g Simplex P Non Atb Mv - [id number] Implanted:Qty: 1 on 09/26/2019 by Holger Jane MD at [facility] Left: Hip [facility] Simplex Bone Cement 08/22/2021 6191-1-01 0# / / [id number] Description:Simplex Bone John ent Full Dose Insurance MEDICARE PART A HB ONLY [employer] MEDICARE ADVANTAGE MR Advance Directives Documents on File Type Date Recorded Patient Stamp Mounter Expl anation POLST 04/21/2024 Healthcare Directive 06/28/2020 4:39 PM NF LD 06/28/20 * DNR (Latest Code Status on File) Date Activated Date Inactivated Comments 01/22/2025 11:43 PM 01/25/2025 4:40 PM POLST reviewe d Question Answer Comments Code Status Discussion: Reviewed Preferences * DNR Date Activated Date Inactivated Comments 04/11/2024 3:16 PM 04/12/2024 6:46 PM Question Answer Comments Code Status Discussion: Reviewed Preferences * Full Code Date Activated Date Inactivated Comments 04/09/2024 3:49 AM 04/11/2024 3:16 PM Question Answer Comments Code Status Discussion: Unable to Assess Preferences, Provider to review later * Full Code Date Activated Date Inactivated Comments 03/31/2024 12:37 PM 03/31/2024 4:18 PM Question Answer Comments Code Status Discussion: Reviewed Preferences * Full Code Date Activated Date Inactivated Comments 11/21/2023 11:35 AM 11/21/2023 3:42 PM Question Answer Comments Code Status Discussion: Reviewed Preferences Care Teams Stock Roller Relationship Specialty Start Date End Date Bari Benz MD [address] [place] [address] PCP - General Family Practice 11/02/19
--- OUTSIDE RECORDS SUMMARY | 2025-08-06 18:33 | XMS_ITS | Clinical Summary ---
Author Organization [facility] Address [address] [place] [address] Care Team Providers Care Drivers License Examiner Name Role Phone None Reported, Pcp Primary Care Provider Unavail able Source Comments Patient records contain information from all sites at [facility]. For routine questions regarding patient records, call [phone] during business hours, M-F 8:00 AM - 5:00 PM Central Time. Record requests for emergency care only can be directed to [phone] at any time.[facility] Allergies Active Allergy Reactions Criticality Noted Date Comments Nsaids (Non-Steroidal Anti-I nflammatory Drug) GI bleeding High 09/22/2021 Medications vitamins A,C,E-zinc-valarie er (PRESERVISION AREDS) 7,160 Units-113 mg-100 Units per tablet Take 1 tablet by mouth daily. Active donepeziL (ARICEPT) 10 mg tablet Take 10 mg by mouth at bedtime. 11/08/202 1 Active ferrous sulfate 324 mg (65 mg iron) DR tablet Take 324 mg by mouth daily. 2 Active famotidine (Pepcid) 20 mg tablet Take 20 mg by mouth 2 (two) times a day. 5 Active metoprolol succinate (Toprol XL) 50 mg 24 hr tablet Take 1 tablet (50 mg total) by mouth daily. Do not crush or chew. 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 With Bleeding 11/19/2022 Anemia Posthemorrhagic Acute (Blood Loss Anemia) 09/22/2021 COVID-19 Infection 09/22/2021 Alzheimer's Disease 07/01/2020 Foot Drop Left 10/19/2019 Anemia Of Chronic Disease 09/25/2019 Overview (09/22/2021): HEMOGLOBIN (g/dL) Date Value 09/25/2019 10.8 (L) HEMOGLOBIN (g/dL) Date Value 09/27/2019 9.8 (L) Confusion 08/30/2019 Fracture Vertebra Thoracic Closed Subsequent 04/2019 Hemorrhage Subdural Trauma W ithout Loss Of Consciousness Initial 07/13/2019 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 07/23/2025 Clinical Communication Department of Cardiovascular Medicine in [place], [place] [address] [place] [address] County Director WelfareAndrea M.D. Reschedule 07/07/2025 Clinical Communication Department of Cardiovascular Medicine in [place], [place] [address] [place] [address] County Director WelfareAndrea M.D. Triage (CONS//Prabha// [facility] // [phone]) 07/04/2025 11:40 PM CDT Ancillary Procedure Department of Gastroenterology 07/04/2025 9:22 PM CDT - 07/07/2025 5:15 PM CDT Hospital Encounter [facility], Sixth Floor [address] [place] [address] Vance Lopez M.D., M.H.A. Jefferson Carrion M.D. Lal, Amos, M.B.B.S. Osbaldo Canchola M.D. Respiratory Failure (HCC) (Primary Dx); Respiratory Failure With Hypoxia (HCC); Food In Esophagus Causing Other Injury Initial; Dysphagia [R13.10]; Supraventricular Tachycardia, Unspecified (HCC); Stricture Esophagus; Hankins's Esophagus; Decline Functional Status Discharge Disposition: Home or Self Care 07/04/2025 5:14 PM CDT - 07/04/2025 8:14 PM CDT Emergency [facility] [address] [place] [id number] Farheen Yañez APRN, C.N.P., D.N.P. Food In Esophagus Causing Other Injury Initial (Primary Dx) Discharge Disposition: Home or Self Care from Last 3 Months Immunizations Immunization Administration Dates Next Due Tdap 07/13/2019 Family History Medical History Relation Name Comments Diabetes Father Hermes Cook Stroke Father Hermes Cook Dementia Mother Koki Cook Kidney disease Mother Koki Cook Osteoporosis Mother Koki Cook Relation Name Status Comments Father Hermes Cook Mother Koki Cook Social History Tobacco Use Types Packs/Day Years [...] things needed for daily living? No 07/05/2025 [facility] Utilities Answer Date Recorded In the past 12 months has th e electric, gas, oil, or water company threatened to shut off services in your home? No 07/05/2025 Housing Stability Answer Date Recorded What is your living situation today? I have a [facility] to live 07/06/2025 Education Answer Date Recorded What is the highest level of school you have completed or the highest degree you have received? 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 Gender Identity Not on file Sexual Orientation Not on file Last Filed Vital Signs Vital Sign Reading [...] Mass Index 24.2 07/05/2025 12:00 AM CDT Plan of Treatment Health Maintenance Due Date Last Done Comments Pneumococcal vaccine (50+ ye ars) (1 of 2 - PCV) 1962 Zoster Vaccines (1 of 2) 1993 RSV vaccine - (32-3 6 weeks) or 50+ years (1 - 1-dose 75+ series) 2018 Fall Risk Screen (Annual) 09/23/2024 COVID-19 Vaccine (1 - 2024-2 6 season) 2025 Influenza Vaccine (#1) 2025 DTaP,Tdap,and Td Vaccines (2 - Td or Tdap) 07/13/2029 07/13/2019 IPV Vaccines Aged Out No longer eligi ble based on patient's age to complete this topic Procedures Procedure Name Priority Date/Time Associated Diagnosis Comments GLUCOSE POCT, B Routine 07/07/2025 4:57 AM CDT RENAL FUNCTION PANEL, S Routine 07/07/2025 4:11 AM CDT CBC WITH DIFFERENTIAL, B Routine 07/07/2025 4:11 AM CDT ECG Routine 07/07/2025 2:05 AM CDT HEMOGLOBIN, B Timed 07/06/2025 2:28 PM CDT SPSMA RESULT Routine 07/06/2025 6:33 AM CDT MAGNESIUM, S Routine 07/06/2025 6:33 AM CDT RENAL FUNCTION PANEL, S Routine 07/06/2025 6:33 AM CDT CBC WITH DIFFERENTIAL, B Routine 07/06/2025 6:33 AM CDT GLUCOSE POCT, B Routine 07/06/2025 5:30 AM CDT PH BLOOD GAS STAT 07/05/2025 8:57 PM CDT CALCIUM, IONIZED, S/B STAT 07/05/2025 8:57 PM CDT MAGNESIUM, S STAT 07/05/2025 8:57 PM CDT RENAL FUNCTION PANEL, S STAT 07/05/2025 8:57 PM CDT ECG Semiurgent (Fast, most ED patients, some inpatients) 07/05/2025 5:06 PM CDT FL SWALLOW FUNCTION WITH VIDEO AND SPEECH OR OT FOR RST RAD - Timed (for specific dates/times) 07/05/2025 2:44 PM CDT FL ESOPHAGRAM DOUBLE CONTRAST RAD - Routine (most inpatients and all outpatients) 07/05/2025 2:44 PM CDT ECG Routine 07/05/2025 9:08 AM CDT THYROID-STIMULATING HORMONE-SENSITIVE (S-TSH) Routine 07/05/2025 3:36 AM CDT FERRITIN, S Routine 07/05/2025 3:36 AM CDT IRON AND TOT IRON-BINDING CAPACITY, S/P Routine 07/05/2025 3:36 AM CDT RENAL FUNCTION PANEL, S Routine 07/05/2025 3:36 AM CDT CBC WITH DIFFERENTIAL, B Routine 07/05/2025 3:36 AM CDT CYSTATIN C WITH EGFR Routine 07/05/2025 3:36 AM CDT T4 (THYROXINE), FREE, S Routine 07/05/2025 3:27 AM CDT SURGICAL PATHOLOGY Routine 07/05/2025 1: 19 AM CDT NJ BRONCH DX W CELL WASH FLUOR Routine 07/05/2025 12:24 AM CDT Respiratory Failure (HCC) AIRWAY CARE Routine 07/05/2025 12:23 AM CDT LDA ANE ENDOTRACHEAL AIRWAY Routine 07/05/2025 12:19 AM CDT Respiratory Failure (HCC) GASTROENTEROLOGY IMAGE EXAM Routine 07/04/2025 11:40 PM CDT UPPER GI ENDOSCOPY Routine 07/04/2025 11:39 PM CDT EGD (ESOPHAGOGASTRODUODENO SCOPY) Routine 07/04/2025 11:39 PM CDT VBG & LYTES CG8+, POCT, B STAT 07/04/2025 11:03 PM CDT LACTATE, POCT, B STAT 07/04/2025 11:02 PM CDT PROTHROMBIN TIME (PT), P STAT 07/04/2025 11:01 PM CDT BASIC METABOLIC PANEL, S/P STAT 07/04/2025 11:01 PM CDT CBC WITH DIFFERENTIAL, B STAT 07/04/2025 11:01 PM CDT CRITICAL CARE Routine 07/04/2025 10:58 PM CDT DX CHEST PORTABLE 1 VIEW RAD - Semiurgent (Fast; most ED patients; some inpatients) 07/04/2025 10:15 PM CDT from Last 3 Months Results * Glucose, POCT (07/07/2025 4:57 AM CDT) Only the most recent of2 resultswithin the time period is included. Glucose, POCT, B 117 70 - 140 mg/dL 07/07/2025 4:58 AM CDT PCLX Site Capillary 07/07/2025 4:58 AM CDT PCLX Last Intake > 4 hours 07/07/2025 4:58 AM CDT PCLX Blood 07/07/2025 4:57 AM CDT 07/07/2025 4:58 AM CDT us Unknown Provider LAB POCT ORDERABLES-MANUAL [place] Result POC [facility] [address] [place] [address], [facility] PCLX [facility] POC [address] [place] [address] * Renal Function Panel (07/07/2025 4:11 AM CDT) Only the most recent of4 resultswithin the time period is included. Potassium, S 4.5 3.6 - 5.2 mmol/L [...] M.D. LAB BLOOD ADD-ON Final Resul t [address] [address], [facility] [address] [address] * (ABNORMAL) CBC with Differential, Blood (07/07/2025 4:11 AM CDT) Only the most recent of4 resultswithin the time period is included. Hemoglobin 12.7 11.6 - 15.0 g/dL 07/07/2025 [...] 4:11 AM CDT 07/07/2025 4:49 AM CDT us Ya Taveras M.D. LAB BLOOD ADD-ON Final Resul t [facility] [address] [place] [address], [facility] DTL [facility] [address] [place] [address] [facility] [address] [place] [address] * ECG 12 Lead (07/07/2025 2:05 AM CDT) Only the most recent of3 resultswithin the time period is included. Ventricular Rate ECG/Min 92 BPM MUSE NJ Interval 136 ms MUSE QRSD Interval 78 ms MUSE QT Interval 364 ms MUSE QTC Interval 450 ms MUSE P Clayton 45 degrees MUSE R Clayton 0 degrees MUSE T Wave Clayton 6 degrees MUSE 07/07/2025 2:05 AM CDT [...] change was found Reviewed by ERYN Danielson us Ya Taveras M.D. ECG ORDERABLES Final Result Performing Organization Address [facility] Co de Phone Number MUSE NA * (ABNORMAL) Hemoglobin (07/06/2025 2:28 PM CDT) Pathologist [facility] Hemoglobin 11.4(L) 11.6 - 15.0 g/dL 07/06/2025 2:37 PM CDT STMA Blood (Blood, Venous) 07/06/2025 2:28 PM CDT 07/06/2025 2:35 PM CDT us Mounika Briones M.D., M.S. LAB BLOOD ADD-ON Final Result Performing Organization Address [facility] de Phone Number [facility] [address] [place] [address], [facility] STMA [facility] [address] [place] [address] * (ABNORMAL) Morphology Eval (special smear) (07/06/2025 6:33 AM CDT) Neutrophilic Segs and Bands 83(H) 50 - 75 % 07/06/2025 8:49 AM CDT DHPM Lymphocytes 7(L) 18 - 42 % 07/06/2025 8:49 AM CDT DHPM Monocytes 10 2 - 11 % 07/06/2025 8:49 AM CDT DHPM Interpretation See Comment 10/14/202 5 8:49 AM CDT PM Comment:Peripheral blood sme ar reviewed: no diagnostic abnormalities are seen. Reviewed by: Jackie 07/06/2025 8:49 AM CDT [facility] Blood (Blood, Venous) 07/06/2025 6:33 AM CDT 07/06/2025 7:53 AM CDT Mounika Briones M.D., M.S. LAB BLOOD ADD-ON Final Result Performing Organization Address [facility] Co de Phone Number [facility] [address] [place] [address] * (ABNORMAL) Magnesium (07/06/2025 6:33 AM CDT) Only the most recent of2 resultswithin the time period is included. Magnesium, S 2.4(H) 1.7 - 2.3 mg/dL 07/06/2025 7:49 AM CDT DTL Blood (Blood, Venous) 07/06/2025 6:33 AM CDT 07/06/2025 7:11 AM CDT Mounika Briones M.D., M.S. LAB BLOOD ADD-ON Final Result Performing Organization Address [facility] Co de Phone Number [facility] [address] [place] [address] * pH (07/05/2025 8:57 PM CDT) pH 7.43 7.35 - 7.45 pH 07/05/2025 9:05 PM CDT STMA Blood 07/05/2025 8:57 PM CDT 07/05/2025 9:03 PM CDT Ya Taveras M.D. LAB HISTORICAL ORDERS Final Result Performing Organization Address City/[facility]/ZIP Co de Phone Number [facility] [address] [place] [address], [facility] [place] [facility] [address] [place] [address] * Calcium, Ionized (07/05/2025 8:57 PM CDT) Calcium, Ionized, B 4.66 4.65 - 5.30 mg/dL 07/05/2025 9:07 PM CDT STMA Blood (Blood, Venous) 07/05/2025 8:57 PM CDT 07/05/2025 9:03 PM CDT us Ya Taveras M.D. LAB BLOOD NON ADD-ON Final R esult Performing Organization Address City/[facility]/ZIP Co de Phone Number [facility] [address] [place] [address], [address] [address] * [place] Esophagram Double Contrast (07/05/2025 2:44 [...] but without obstruction. us Ya Taveras M.D. [facility] FLUOROSCOPY PROCEDURES F inal [...] but without obstruction. us Ya Taveras M.D. [facility] FLUOROSCOPY PROCEDURES F inal Result * Cystatin C with Estimated GFR (07/05/2025 [...] ADD-ON Final Resul t Performing Organization Address City/[facility] de Phone Number [facility] [address] DTL [facility] [address] [place] [address] * (ABNORMAL) Iron and Total Iron-Binding Capacity (07/05/2025 3:36 AM CDT) [facility] Signature Iron 21(L) 35 - 145 mcg/dL 07/05/2025 5:22 AM CDT DTL Total Iron Binding Capacity 267 250 - 400 mcg/dL 07/05/2025 5:22 AM CDT DTL Percent Saturation 8(L) 14 - 50 % 07/05/2025 5:22 AM CDT DTL Blood (Blood, Venous) 07/05/2025 3:36 AM CDT 07/05/2025 4:32 AM CDT us Ya Taveras M.D. LAB BLOOD ADD-ON Final Resul t Performing Organization Address City/[facility] Co de Phone Number [facility] [address] DTL [facility] [address] [place] [address] * (ABNORMAL) S-TSH (Thyroid-Stimulating Hormone - Sensitive) (07/05/2025 3:36 AM CDT) TSH, Sensitive 5.6(H) 0.3 - 4.2 mIU/L 07/05/2025 5:22 AM CDT DTL Blood (Blood, Venous) 07/05/2025 3:36 AM CDT 07/05/2025 4:32 AM CDT Ya Taveras M.D. LAB BLOOD ADD-ON Final Resul t Performing Organization Address City/[facility]/ZIP Co de Phone Number [facility] [address] [place] [address] * Ferritin (07/05/2025 3:36 AM CDT) Pathologist [facility] Ferritin, S 93 11 - 328 mcg/L 07/05/2025 5:22 AM CDT DTL Blood (Blood, Venous) 07/05/2025 3:36 AM CDT 07/05/2025 4:32 AM CDT us Ya Taveras M.D. LAB BLOOD ADD-ON Final Resul t [facility] [address] [place] [address] * T4 (Thyroxine), Free (07/05/2025 3:27 AM CDT) T4 (Thyroxine), Free, S 1.3 0.9 - 1.7 ng/dL 07/05/2025 6:14 AM CDT DTL Blood (Blood, Venous) 07/05/2025 3:27 AM CDT 07/05/2025 5:40 AM CDT us Ya Taveras M.D. LAB BLOOD ADD-ON Final Resul t Performing Organization Address City/[facility]/ZIP Co de Phone Number [facility] [address] [place], [place] [id number] [place] [address] [address] [place] [address] * Surgical Pathology (07/05/2025 1:19 AM CDT) 07/06/2025 2:14 PM CDT DTL Participated in the Interpretation Wilmer Teran M.D.-Patholog y Fellow 07/06/2025 2:14 PM CDT [...] ORDERABLES Fi nal Result Performing Organization Address [facility]/ZIP Co de Phone Number [facility] [address] [place] [address], [facility] [address] [address] * [place] BRONCH DX W CELL WASH FLUOR (07/05/2025 12:24 AM CDT) Narrative Jefferson Carrion M.D. - 07/05/2025 12:24 AM CDT Jefferson [...] yes Complications: no apparent complications Lucia Mujica, M.B.AOsman PROCEDURE/MINOR SURGICAL ORDERABLES Final Result * LDA [...] ETT location: oral VL device: glide scope Holcomb scope blade size: 3 Tube size: 7.5 [...] A ORDERABLES Final Result * Upper GI endoscopy-Gastroenterology Image Exam (07/04/2025 11:40 PM CDT) Narrative IIMA - 07/05/2025 4:16 PM CDT This order has been created and auto-finalized to support the import of images acquired without order. The clinical documentation to support these images can be found on the encounter that produced images. us Provider Not In System IMG NON RAD IMAGING PROCE DURIRVIN Final Result IIMS NA * Upper GI Endoscopy (07/04/2025 11:39 PM [...] duodenum. Narrative 07/05/2025 4:13 PM CDT [facility] GI GI Patient Name: Jazmin Lyn Date of : 1945 Age: 79 Procedure Date: 07/04/2025 Procedure: Upper GI endoscopy Providers: Mikey Jamil MD, Shiva Santana (Fellow) Referring Provider: Zeke Kelly Comorbidities: Hypothyroidism, Dementia Pre-op Diagnoses: Foreign body in the esophagus Recommendation: - Return patient to ICU for ongoing care. - Use a proton pump inhibitor IV BID until cleared for solids by FIELD INSURANCE SALES MANAGER. - Await pathology results. - Clear liquid diet today. - Consult FIELD INSURANCE SALES MANAGER for VFSS and double contrast esophagram (with [...] been signed electronically. Number of Addenda: 0 us Zeke Kelly M.D. GI PROCEDURE ORDERABLES Final Result * EGD (EsophagoGastroDuodenoscopy) (07/04/2025 11:39 PM CDT) Anatomical Region Laterality Modality Endoscopy 07/04/2025 11:3 9 PM CDT us Zeke Kelly M.D. GI PROCEDURE ORDERABLES Final [...] - DEVICE Final Result Performing Organization Address [facility]/ZIP Co de Phone Number POC [facility] [address] [place] [address], [facility] POC [address] [place] [address] * Lactate, POCT (07/04/2025 11:02 PM CDT) Lactate, POCT 1.99 0.50 - 2.20 mmol/L 07/04/2025 11:12 PM CDT PCLX Blood (Blood, Venous) 07/04/2025 11:02 PM CDT 07/04/2025 11:02 PM CDT us Zeke Kelly M.D. LAB POCT ORDERABLES - DEVICE Final Result Performing Organization Address [facility] Co de Phone Number POC [facility] [address] [place] [address], [facility] PCLX [facility] POC [address] [place] [address] * Prothrombin Time (PT) (07/04/2025 11:01 PM [...] Kelly M.D. LAB BLOOD ADD-ON Final Result [facility] [address] [place] [address], [facility] STMA [facility] [address] [place] [address] * (ABNORMAL) Basic Metabolic Panel (07/04/2025 11:01 [...] Kelly M.D. LAB BLOOD ADD-ON Final Result [facility] [address] [place] [address], [facility] [address] [place] [address] * Critical Care (07/04/2025 10:58 PM CDT) Narrative Vanec Lopez M.D., M.H.A. - 07/04/2025 10:58 PM [...] from another provider in my specialty: no us Vance Lopez M.D., M.H.A. PROCEDURE/MINOR SURGI FANY [...] granuloma left lower lobe. Vascular calcifications.Demineralization. Zeke Kelly M.D. IMG DIAGNOSTIC IMAGING PROCED URES Final Result from Last 3 Months Insurance [facility] Advance Directives For more information, please contact: [phone] Documents on File Type Date Recorded Patient Lamp Tester And Inspector Expl anation Advance Directives 09/25/2021 11:34 AM Cathie/Kat sa PostClay T Víctor Damon Octavio HCPOA/ADVOCATE/AGENT/R EPRESENTATIVE/SURROGAT E Advance Directives 09/02/2019 1:36 PM [facility] [id number] * DNR (Latest Code Status on File) Date Activated Date Inactivated Comments 07/04/2025 11:54 PM 07/07/2025 7:20 PM Question Answer Comments DNR (Do Not Resuscitate): Discussed- Alternative /surrogate decision maker * Full Code Date Activated Date Inactivated Comments 11/15/2022 9:44 PM 11/19/2022 3:09 PM Question Answer Comments Full Code: Discussed * Full Code Date Activated Date Inactivated Comments 09/22/2021 8:27 PM 09/25/2021 3:29 PM Not yet disc ussed Question Answer Comments Full Code: Not Discussed Due to: Patient not available * Full Code Date Activated Date Inactivated Comments 09/02/2019 10:34 AM 09/22/2021 3:04 PM Question Answer Comments Full Code: Discussed * Full Code Date Activated Date Inactivated Comments 08/30/2019 6:50 PM 09/02/2019 10:34 AM Question Answer Comments Full Code: Discussed Healthcare Agents on File Name Relationship Healthcare Agent Relationship Communication Cathie/Carmencita Post Daughter Health Care Agent Spencer Rizzo Lazarodonovan Son First Alternate Health Care Agent Marisol Cunningham Daughter Second Alternate Health Care Agent Care Teams Drivers License Examiner Relationship Specialty Start Date End Date None Reported, Pcp PCP - General Family Medicine 03/12/25
[2025-08-06 18:50] LABS: Albumin* 4.4 g/dL (3.3-5.0); Chloride* 99 mmol/L (96-114); Potassium* 4.4 mmol/L (3.6-5.1); Sodium* 133 mmol/L (135-149)
[2025-08-06 18:52] LABS: Anion Gap 15 mEq/L (7-15); Blood Urea Nitrogen* 25 mg/dL (7-30); Carbon Dioxide* 19 mmol/L (20-32); Creatinine* 0.8 mg/dL (0.5-1.5); Est. Creatinine Clearance* 39.03; Estimated Glomerular Filt Rate 74 ml/min
[2025-08-06 18:53] LABS: Alanine Aminotransferase* 51 U/L (4-35); Alkaline Phosphatase* 96 U/L (40-150); Aspartate Amino Transferase* 43 U/L (12-35); Bilirubin Total* 0.6 mg/dL (0.1-1.5); Calcium* 9.3 mg/dL (8.4-10.6); Glucose* 133 mg/dL (60-115); Total Protein* 7.8 g/dL (6.0-8.3)
[2025-08-06 19:06] LABS: NT Pro B Type NatriureticPept* 1260 pg/mL (See Note)
[2025-08-06 19:13] LABS: TSH With Reflex to FT4* 5.130 uIU/mL (0.270-4.200)
[2025-08-06 19:44] LABS: Free T4 Free Thyroxine* 1.23 ng/dL (0.70-1.85)
[2025-08-06] MEDS: METOPROLOL TARTRATE 25 MG TABLET PO (20:32)
== END 2025-08-06 20:45 | disposition home or self-care (01) ==
PROVIDERS: Emergency Provider Family Medicine; PCP Family Medicine
DX: I47.10 Supraventricular tachycardia, unspecified (principal)
CPT/HCPCS: 36415; 71046; 80053; 83735; 83880; 84439; 84443; 84484; 85025; 93005; 94761; 99284; 99291; A9270; J0153; J7030